=== PATIENT | female | born 1960 | race Caucasian/White ===

== ENCOUNTER 2023-04-01 08:43 | Outpatient (OUT) | payer BC, SELFPAY ==
--- NOTE | 2023-04-01 08:47 | MM_ITS ---
Patient: ALICIA STEWART Exam Date: 04/01/2023 : 1960 Gender:F Ordering : DR Robert Cortez . Admission #: [id number] Family : DR Johnnie Brewer . Order #: [id number] CLICK HERE TO VIEW EXAM RADIOLOGY REPORT PROCEDURE: MM TOMOSYNTHESIS SCREENING BI COMPARISON: MG MAMM SCREEN 3D ILDA CAD, 01/19/2021MG MAMM SCREEN 3D ILDA CAD, 02/01/2022. INDICATIONS: Screening Calculator Name NCI Breast Cancer Risk Assessment Tool 5 Year Breast Cancer Risk 1.30% Lifetime Breast Cancer Risk 5.70% Personal Breast Cancer No Personal Ovarian Cancer No Treatments None Family Cancers None LOCATION: [facility] BREAST COMPOSITION: Heterogeneously dense,which may obscure small masses. FINDINGS: DIAGNOSTIC CATEGORY 1--NEGATIVE. NO CHANGE FROM COMPARISON ASSESSMENT. Scattered benign-appearing calcifications are present. Scattered benign-appearing lymph nodes are present. RIGHT BREAST: No significant suspicious finding. LEFT BREAST: No significant suspicious finding. Stable micro clip marker upper outer quadrant, anterior breast RECOMMENDATIONS: ROUTINE MAMMOGRAM AND CLINICAL EVALUATION IN 12 MONTHS. PLEASE NOTE: A NORMAL MAMMOGRAM DOES NOT EXCLUDE THE POSSIBILITY OF BREAST CANCER. A CLINICALLY SUSPICIOUS PALPABLE LUMP SHOULD BE BIOPSIED. Dictated by: Drew Mead MD on 04/01/2023 at 09:49 Approved by: Drew Mead MD on 04/01/2023 at 09:51
== END 2023-04-01 08:44 | disposition home or self-care (01) ==
LOC: MAMMO 08:43
PROVIDERS: PCP Family Medicine; Visit Provider Obstetrics & Gynecology
DX: Z12.31 Encounter for screening mammogram for malignant neoplasm of breast (principal)
CPT/HCPCS: 77063; 77067

== ENCOUNTER 2023-04-19 20:29 | Outpatient (REF) | payer BC, SELFPAY ==
[2023-04-23 12:08] LABS: Age Gdln ACOG Testing Note (.); HPV Aptima Negative (Negative); IGP, Aptima HPV, rfx 16/18,45 Note (.)
== END 2023-04-19 20:30 | disposition home or self-care (01) ==
LOC: LAB 20:29
PROVIDERS: PCP Family Medicine; Visit Provider Obstetrics & Gynecology
DX: Z12.4 Encounter for screening for malignant neoplasm of cervix (principal)
CPT/HCPCS: G0145

== ENCOUNTER 2024-04-23 21:27 | Outpatient (REF) | payer BC, SELFPAY | END 2024-04-23 21:28 | disposition home or self-care (01) | LOC: LAB 21:27 | PROVIDERS: PCP Family Medicine; Visit Provider Obstetrics & Gynecology | DX: Z01.419 Encounter for gynecological examination (general) (routine) without abnormal findings (principal) | CPT/HCPCS: 87624; 88175 ==

== ENCOUNTER 2024-04-30 08:17 | Outpatient (OUT) | payer BC, SELFPAY ==
--- NOTE | 2024-04-30 | XR_ITS ---
[address] [address] Patient Name: ALICIA STEWART MRN: [id number] date: 1960 Sex: F Assigned Patient Location: [facility] Current Patient Location: Accession/Order Number: [id number] Exam Date: 04/30/2024 08:40 Report Date: 05/01/2024 07:32 At the request of: DOMENICO SARAVIA Procedure: XR DEXA axial skeleton EXAMINATION: XR DEXA axial skeleton HISTORY: POSTMENOPAUSAL STATE Z78.0 COMPARISON: DEXA bone densitometry 01/19/2021 TECHNIQUE: Dual-energy X-ray absorptiometry (DXA) was performed. FINDINGS: SPINE ANALYSIS: Average bone mineral density is 1.221 g/cm2. T-score (standard deviation relative to young adult mean): 0.3 . +6.1% change since prior study. HIP ANALYSIS: Lowest bone mineral density is within the right femoral neck, 0.809 g/cm2. T-score (standard deviation relative to young adult mean): -1.6 . -4.7% change since prior study. XR/XR DEXA axial skeleton IMPRESSION: World Health Organization Classification: Osteopenia - Moderate Fracture Risk FRAX: Cannot calculate. Pharmacologic treatment recommendations * No uniform recommendation applies to all patients. Management plans must be individualized. * Consider initiating pharmacologic treatment in postmenopausal women and men >= 50 years of age who have the following: Primary fracture prevention: * T-score <= - 2.5 at the femoral neck, total hip, lumbar spine, 33% radius (some uncertainty with existing data) by DXA. * Low bone mass (osteopenia: T-score between - 1.0 and - 2.5) at the femoral neck or total hip by DXA with a 10-year hip fracture risk >= 3% or a 10-year major osteoporosis-related fracture risk >= 20% (i.e., clinical vertebral, hip, forearm, or proximal humerus) based on the [place]-adapted FRAXregistered model. Secondary fracture prevention: * Fracture of the hip or vertebra regardless of BMD [4, 5]. * Fracture of proximal humerus, pelvis, or distal forearm in persons with low bone mass (osteopenia: T-score between - 1.0 and - 2.5). The decision to treat should be individualized in persons with a fracture of the proximal humerus, pelvis, or distal forearm who do not have osteopenia or low BMD [12, 13]. Theresa MS, Ariel SL, Rajinder KL, Mathew EM, Thanh KG, AJ, Naif ES. The clinician's guide to prevention and treatment of osteoporosis. Osteoporos Int. 2021;33(10):1598-6507. doi: 10.1007/n52684-209-63740-c. Epub 2021Dec 03. Erratum in: Osteoporos Int. 2021Mar 04;: PMID: [id number]; PMCID: [id number]. Electronically authenticated by: IVONNE PENALOZA Date: 05/01/2024 07:32
--- NOTE | 2024-04-30 | MM_ITS ---
Patient Name: ALICIA STEWART MR#: [id number] : 1960 Exam Date: 04/30/2024 Ordering Doctor: DR Robert Cortez . RADIOLOGY REPORT PROCEDURE: MM TOMOSYNTHESIS SCREENING BI COMPARISON: MM TOMOSYNTHESIS SCREENING BI, 04/01/2023. MG MAMM SCREEN 3D ILDA CAD, 02/01/2022. INDICATIONS: SCREENING FOR MALIGNANT NEOPLASM OF BREASTS Calculator Name NCI Breast Cancer Risk Assessment Tool 5 Year Breast Cancer Risk 1.40% Lifetime Breast Cancer Risk 5.60% Personal Breast Cancer No Personal Ovarian Cancer No Treatments None Family Cancers None LOCATION: The BREAST COMPOSITION: The breasts are heterogeneously dense,which may obscure small masses. FINDINGS: DIAGNOSTIC CATEGORY 2--BENIGN FINDING. NO CHANGE FROM COMPARISON. Scattered benign-appearing calcifications are present. Scattered benign-appearing lymph nodes are present. RIGHT BREAST: No significant suspicious finding. LEFT BREAST: No significant suspicious finding. Stable micro clip marker upper outer quadrant, anterior breast. RECOMMENDATIONS: ROUTINE MAMMOGRAM AND CLINICAL EVALUATION IN 12 MONTHS. PLEASE NOTE: A NORMAL MAMMOGRAM DOES NOT EXCLUDE THE POSSIBILITY OF BREAST CANCER. A CLINICALLY SUSPICIOUS PALPABLE LUMP SHOULD BE BIOPSIED. Dictated by: Drew Mead MD on 04/30/2024 at 12:40 Approved by: Drew Mead MD on 04/30/2024 at 12:41
== END 2024-04-30 08:18 | disposition home or self-care (01) ==
LOC: RAD 08:18
PROVIDERS: PCP Family Medicine; Visit Provider Obstetrics & Gynecology
DX: Z12.31 Encounter for screening mammogram for malignant neoplasm of breast (principal); Z78.0 Asymptomatic menopausal state; M85.80 Other specified disorders of bone density and structure, unspecified site
CPT/HCPCS: 77063; 77067; 77080

== ENCOUNTER 2025-03-28 12:18 | Outpatient (REF) | payer BC, SELFPAY ==
--- OUTSIDE RECORDS SUMMARY | 2025-04-05 12:25 | XMS_ITS | CCD ---
Author Organization [facility] Care Team Providers Care Machine Adjuster Leader Name Role Phone CHRISTOPHER, DR HADLEY Attending Unavailable COURTNEYK, DR HADLEY Consulting Unavailable PATRIZIA, DR SARBJIT Patrick Primary Care Unavailable KARASIK, DR HADLEY Admitting Unavailable JHASIK, DR HADLEY Admitting Unavailable JHASIK, DR HADLEY Attending Unavailable COURTNEYK, DR HADLEY Consulting Unavailable PATRIZIA, DR SARBJIT Patrick Primary Care Unavailable WEST, DR FLAKITA Conroy Consulting Unavailable Johnnie Browne MD Primary Care Provider Johnnie Browne MD Unavailable Johnnie Browne MD Attending Provider ZAID WEBER Attending Unavailable ZAID WEBER Referring Unavailable JOHNNIE BROWNE Attending Unavailable JOHNNIE BROWNE Attending Unavailable DOMENICO CORTEZ Attending Unavailable Johnnie Browne Attending Unavailable Johnnie Browne Admitting Unavailable Allergies Allergy Classification Reported Allergen(s) Allergy Type Date of Onset Reaction(s) Facility (1 source) Morphine Drug Allergy 06-01-2015 [facility] Repository (11 sources) Morphine Drug Allergy 04-18-2023 [facility] Healthcare Work Phone: (11 sources) Sulfonamides (Antibiotic) Drug Allergy 04-18-2023 Rash [facility] Medications Current Medications Medication Drug Class(es) Dates Sig (Normalized) Sig (Original) atorvastatin 10 mg oral tablet (10 sources) HMG-CoA Reductase Inhibitor Start: 07-27-2024 take 1 tablet by mouth once daily atorvastatin (Lipitor) 10 MG tablet Indications: Hyperlipidemia, unspecified Take 1 tablet (10 mg) by mouth Daily 90 tablet 3 07/27/2024 Active Start: 04-16-2024 End: 04-23-2024 take 1 tablet by mouth once daily at dinner atorvastatin (Lipitor) 10 MG tablet Indications: Hyperlipidemia, unspecified (CMS/HCC) TAKE 1 TABLET BY MOUTH EVERY DAY DINNER 90 tablet 3 04/16/2024 04/23/2024 Discontinued bisoprolol fumarate 10 mg / hydroCHLOROthiazide 6.25 mg oral tablet (11 sources) Thiazide Diuretic, beta-Adrenergic Bj Start: 12-03-2024 take 1 tablet by mouth once daily bisoprolol-hydroCHLOROthiazide (Ziac) 10-6.25 MG tablet Indications: Essential (primary) hypertension , Benign essential hypertension TAKE 1 TABLET BY MOUTH EVERY DAY 90 tablet 3 12/03/2024 Active Start: 12-08-2023 take 1 tablet by roselyn th once daily bisoprolol-hydroCHLOROthiazide (Ziac) 10 -6.25 MG tablet Indications: Essential (primary) hypertension (CMS/HCC) , Benign essential hypertension (CMS/HCC) TAKE 1 TABLET BY MOUTH EVERY DAY 90 tablet 3 12/08/2023 Active Cholecalciferol (7 sources) Vitamin D Cholecalciferol (EQL VITAMIN D3 GUMMIES PO) Take by mouth Active levothyroxine sodium 0.125 mg oral tablet (13 sources) l-Thyroxine Start: take 1 tablet by mouth once daily levothyroxine (Synthroid, Levoxyl) 125 MCG tablet Indications: Adult hypothyroidism Take 1 tablet (125 mcg) by mouth Daily 90 tablet 3 12/14/2024 Active Start: 08-05-2023 End: 07-09-2025 take 1 tablet by mouth in the morning levothyroxine (Synthroid, Levoxyl) 100 MCG tablet Indications: Adult hypothyroidism (CMS/HCC) TAKE 1 TABLET (100 MCG) BY MOUTH IN THE MORNING 90 tablet 3 07/09/2024 12/14/2024 Discontinued (Reorder) Misc Natural Products (BEET ROOT PO) (10 sources) take 1 tablet by roselyn th once daily Misc Natural Products (BEET ROOT PO) Take 1 tablet by mouth Daily Active Multiple Vitamin (multivitamin) tablet (10 sources) take 1 tablet by roselyn th once daily Multiple Vitamin (multivitamin) tablet Take 1 tablet by mouth Daily Active Turmeric extract (10 sources) take 1 tablet by roselyn th once daily Turmeric 5-1000 MG capsule Take 1 tablet by mouth Daily Active Completed/Discontinued Medications Medication Drug Class(es) Dates Sig (Normalized) Sig (Original) Calcium Carbonate-Vit D-Min (CALCIUM 1200 PO) (6 sources) End: 12-14-2024 Calcium Carbonate-Vit D-Min (CALCIUM 1200 PO) Take 1,200 mg by mouth Daily 12/14/2024 Discontinued Calcium Carbonat e-Vit D-Min (CALCIUM 1200 PO) Take 1,200 mg by mouth Daily Active metFORMIN hydrochloride 500 mg oral tablet (3 sources) Biguanide End: 04-23-2024 take 1 tablet by mouth once daily metFORMIN (Glucophage) 500 MG tablet Take 500 mg by mouth 1 (one) time each day at the same time 04/23/2024 Discontinued vitamin b12 0.1 mg oral tablet (3 sources) Vitamin B12 End: 12-14-2024 take 1 tablet by mouth once daily cyanocobalamin (Vitamin B-12) 100 MCG tablet Take 100 mcg by mouth Daily 12/14/2024 Discontinued Problems Active Problems Problem Classification Problem Date Documented Date Episodic/Chronic Essential hypertension (10 sources) Essential hypertension; Translations: [Essential (primary) hypertension] Onset: 10-22-2024 10-22-2024 Chronic Immunizations and screening for infectious disease (1 source) Encounter for screening for human papillomavirus (HPV); Translations: [ENC SCREENING HUMAN PAPILLOMAVIRUS] Onset: 01-26-2022 Episodic Osteoarthritis (6 sources) Primary gonarthrosis, bilateral; Translations: [Bilateral primary osteoarthritis of knee] Onset: 12-14-2024 12-14-2024 Chronic Other nutritional; endocrine; and metabolic disorders (8 sources) Severe obesity; Translations: [Class 2 severe obesity due to excess calories with serious comorbidity and body mass index (BMI) of 37.0 to 37.9 in adult ([facility])] Onset: 12-14-2024 12-14-2024 Chronic Other screening for suspected conditions (not mental disorders or infectious disease) (10 sources) Encounter for screening mammogram for malignant neoplasm of breast; Translations: [Encounter for screening for malignant neoplasm of cervix] Onset: 01-25-2022 Episodic Residual codes; unclassified (2 sources) Postmenopausal state; Translations: [Asymptomatic menopausal state] 04-23-2024 Episodic Thyroid disorders (9 sources) Hypothyroidism; Translations: [Hypothyroidism, unspecified] Onset: 10-22-2024 10-22-2024 Chronic Past or Other Problems Problem Classification Problem Date Documented Da sole Episodic/Chronic Diabetes mellitus without complication (6 sources) Prediabetes; Translations: [Prediabetes] Onset: 12-14-2024 12-14-2024 Episodic Neoplasms of unspecified nature or uncertain behavior (9 sources) Neoplasm of uncertain behavior of skin; Translations: [Neoplasm of uncertain behavior of skin] Onset: 12-14-2024 12-14-2024 Episodic Other bone disease and musculoskeletal deformities (7 sources) Osteopenia; Translations: [Other specified disorders of bone density and structure, left thigh] Onset: 05-02-2024 05-02-2024 Episodic Results Test Name Value Interpretation Reference Range Facil reynaldo Tho 03-29-2025 L --- Specimen: [id number] Received: 03/29/25 Status: HASMUKH Kevin Num: [id number] Spec Type: Surgical Subm Dr: Johnnie rBowne MD Tissues: A Skin-Other than Cyst, tag, debridement or plastic repair (RIGHT MID BACK) Procedures: HEAVEN Gross/Tianna L4 Age/ Patient Sex Location Account Attending Physician Diane Stewart 64/F [place] [id number] Johnnie Browne MD SPEC NUM: [id number] RECD: 03/29/25 STATUS: DAYANARAAudrey COOK NUM: [id number] RL: 03/29/25- DR: Johnnie Browne MD ENTERED: 03/29/25 [facility] DR: SPEC TYPE: Surgical DEPT: [place] ENTERED BY: [id number] RECV BY: [id number] ORDERED: HE, Gross/Micro L4 ORDERED: HE, Gross/Micro L4 Pathological Diagnosis Skin lesion, right mid back, shave biopsy: - Hyperkeratotic seborrheic keratosis. Clinical Information Mole Gross Description Received in formalin labeled with the patients name and date of and right mid back mole is a montgomery-purple, finely nodular, 0.7 cm in greatest dimension polypoid-like portion of skin. The specimen is inked black at the apparent point of attachment, trisected, and entirely submitted in a single cassette. (1, ns, [id number] A) Main container is received without a source site; therefore, the office is called. A message is left on 03/29/2025 at 1327 to please call us back and verify the specimen source site- Microscopic Description Microscopic examination is performed. Specimen: [id number] Received: 03/29/25 Status: HASMUKH Brown Num: [id number] Spec Type: Surgical Subm Dr: Johnnie Browne MD Tissues: A Skin-Other than Cyst, tag, debridement or plastic repair (RIGHT MID BACK) Procedures: Johnathon COLLADO Patient: Diane Stewart [id number] (Continued) Specimen: [id number] Received: 03/29/25 (Continued) Signed (signature on file) Christ Jean Baptiste MD 04/01/251431 Specimen: [id number] Received: 03/29/25 Status: HASMUKH Brown Num: [id number] Spec Type: Surgical Subm Dr: Johnnie Browne MD Tissues: A Skin-Other than Cyst, tag, debridement or plastic repair (RIGHT MID BACK) Procedures: Johnathon COLLADO Patient: Diane Stewart [id number] (Continued) Specimen: [id number] Received: 03/29/25 (Continued) CPT Codes 88309 Specimen: [id number] Received: 03/29/25 Status: HASMUKH Brown Num: [id number] Spec Type: Surgical Subm Dr: Johnnie Browne MD Tissues: A Skin-Other than Cyst, tag, debridement or plastic repair (RIGHT MID BACK) Procedures: Niki COLLADO/Tianna L4 Patient: Diane Stewart [id number] (Continued) Signed (signature on file) Christ Jean Baptiste MD 04/01/25 1432 Normal [facility] IGP,APTIMA HPV,AGE GDLNon AGE GDLN ACOG TESTING Note . [facility] Comment on above: TESTS RESULT FLAG UNITS REF RANGE LAB Clinician Provided Cytology Information Source.............Vagina No. of containers..01 ThinPrep Vial Age Algo ACOG Susan... 30-65 01 FLAG LEGEND: L-Low Normal,H-High Normal,LL-Alert Low,HH-Alert High <-Panic Low,>-Panic High,A-Abnormal,AA-Critical Abnormal Performed at: 01 =G [facility] [address] [place] [address] Mari Cunningham MD, HPV APTIMA Negative Negative [facility] e Comment on above: This nucleic acid amplification test det ects fourteen high- risk HPV types (16,18,31,33,35,39,45,51,52,56,58,59,66,68) without differentiation. Performed at: =G - [facility] [place], [place] [id number] Director Of Procurement: Mari Cunningham MD, Phone: [phone] Performed at: [facility] [address] [place], [place] [id number] Director Of Procurement: Abiel Boyer MD, Phone: [phone] IGP, APTIMA HPV, RFX 16/18,45 Note . [facility] Comment on above: TESTS RESULT FLAG UNITS REF RANGE LAB DIAGNOSIS: 02 NEGATIVE FOR INTRAEPITHELIAL LESION OR MALIGNANCY. THIS SPECIMEN WAS RESCREENED PART OF OUR JUNIOR SOFTWARE ENGINEER PROGRAM. Specimen adequacy: 02 Satisfactory for evaluation. No endocervical cells are present. This is consistent with a history of hysterectomy. Performed by: 02 Diane Lopez, Data Warehousing Engineer (ASC) QC reviewed by: 02 Ata Grimes, Data Warehousing Engineer (ASCP) . 02 Note: Note 03 The Pap smear is a screening test designed to aid in the detection of premalignant and malignant conditions of the uterine cervix. It is not a diagnostic procedure and should not be used as the sole means of detecting cervical cancer. Both false-positive and false-negative reports do occur. Test Methodology: Note 03 This liquid based ThinPrep(R) pap test was screened with the use of an image guided system. HPV Genotype Reflex Note 02 Criteria not met, HPV Genotype not performed. FLAG LEGEND: L-Low Normal,H-High Normal,LL-Alert Low,HH-Alert High <-Panic Low,>-Panic High,A-Abnormal,AA-Critical Abnormal Performed at: 02 [facility] [address] [place] [address] Abiel Boyer MD, 03 WB [facility] [address] [address] Mari Cunningham MD, SP[facility]ULA-[facility] CLINKingnaru EntertainmentIL [facility] Reportson 12-08-2022 Lab Reports [id number] D:127 Normal [facility] MG MAMM SCREEN 3D ILDA CADon 02-01-2022 MG MAMM SCREEN 3D ILDA CAD Patient: DIANE STEWART Exam Date: 02/01/2022 : 1960 Gender:F Ordering : DR JOMAR WHITE . Admission #: [id number] Family : DR SARBJIT ACHARYA . Order #: [id number] CLICK HERE TO VIEW EXAM RADIOLOGY REPORT PROCEDURE: MAMMOGRAM SCREENING 3D BILATERAL CAD COMPARISON: MG MAMM SCREEN ILDA W CAD, 01/08/2020. MG MAMM SCREEN 3D ILDA CAD, 01/19/2021. INDICATIONS: Screening mammography Calculator Name NCI Breast Cancer Risk Assessment Tool 5 Year Breast Cancer Risk 1.30% Lifetime Breast Cancer Risk 5.90% Personal Breast Cancer No Personal Ovarian Cancer No Treatments None Family Cancers None LOCATION: [facility] BREAST COMPOSITION: Heterogeneously dense,which may obscure small masses. FINDINGS: DIAGNOSTIC CATEGORY 2--BENIGN FINDING. NO CHANGE FROM COMPARISON. Scattered benign-appearing calcifications are present. Scattered benign-appearing lymph nodes are present. RIGHT BREAST: No significant suspicious finding. LEFT BREAST: No significant suspicious finding. RECOMMENDATIONS: ROUTINE MAMMOGRAM AND CLINICAL EVALUATION IN 12 MONTHS. PLEASE NOTE: A NORMAL MAMMOGRAM DOES NOT EXCLUDE THE POSSIBILITY OF BREAST CANCER. A CLINICALLY SUSPICIOUS PALPABLE LUMP SHOULD BE BIOPSIED. Dictated by: Flakita Mead MD on 02/01/2022 at 10:11 Approved by: Flakita Mead MD on 02/01/2022 at 10:[address] [facility] PAP ACOG PANEL 2: 30 to 65on 01-28-2022 . . Normal [facility] Comment on above: Result Comment: Performed at: WB Performed By: #### [id number] #### [facility] [address] [place] [address] Dr. Kim Pérez Age Gdln ACOG Testing 30-65 Normal [facility] Comment on above: Performed By: #### [id number] #### [facility] [address] [place] [address] Dr. Kim Pérez DIAGNOSIS: Comment Normal [facility] Comment on above: Result Comment: NEGATIVE FOR INTRAEPITHE LIAL LESION OR MALIGNANCY. Performed at: WB Performed By: #### [id number] #### [facility] [address] [place] [address] Dr. Kim Pérez HPV Aptima Negative Normal Negative [facility] Comment on above: Result Comment: This nucleic acid amplif ication test detects fourteen high-risk HPV types (16,18,31,33,35,39,45,51,52,56,58,59,66,68) without differentiation. Performed at: =G Performed By: #### [id number] #### [facility] [address] [place] [address] Dr. Kim Pérez Methodology: Comment Normal [facility] Comment on above: Result Comment: This liquid based ThinPr ep(R) pap test was screened with the use of an image guided system. Performed at: WB Performed By: #### [id number] #### [facility] [address] [place] [address] Dr. Kim Pérez Note: Comment Normal [facility] Comment on above: Result Comment: The Pap smear is a scree sandra test designed to aid in the detection of premalignant and malignant conditions of the uterine cervix. It is not a diagnostic procedure and should not be used as the sole means of detecting cervical cancer. Both false-positive and false-negative reports do occur. . Performed at: WB Performed By: #### [id number] #### [facility] [address] [place] [address] Dr. Kim Pérez Performed by: Comment Normal [facility] Comment on above: Result Comment: Ed Kelly, Cytotechnol ogist (ASCP) Performed at: WB Performed By: #### [id number] #### [facility] [address] [place] [address] Dr. Kim Pérez Specimen adequacy: Comment Normal [facility] Comment on above: Result Comment: Satisfactory for evaluat ion. No endocervical cells are present. This is consistent with a history of hysterectomy. Performed at: WB Performed By: #### [id number] #### [facility] [address] [place] [address] Dr. Kim Pérez Vital Signs Date Time Vital Sign Value Performing Clinician Donovani lity 03-28-2025 13:13040 Body height 162.6 cm Johnnie Browne MD Work Phone: [facility] 03-28-2025 13:13-0400 Body mass index (BMI) [Ratio] 37.25 kg/m2 Johnnie Browne MD Work Phone: [facility] 03-28-2025 13:13-0400 Body temperature 96.6 [degF] Johnnie Browne MD Work Phone: [facility] 03-28-2025 13:13-040 Body weight 98.43 kg Johnnie Browne MD Work Phone: [facility] 03-28-2025 13:13-0400 Diastolic blood pressure 64 mm[Hg] Johnnie Browne MD Work Phone: [facility] 03-28-2025 13:13-0400 Heart rate 71 /min Johnnie Browne MD Work Phone: [facility] 03-28-2025 13:13-0400 Respiratory rate 20 /min Johnnie Browne MD Work Phone: [facility] 03-28-2025 13:13-0400 SaO2% (BldA) [Mass fraction] 94 % Johnnie Browne MD Work Phone: [facility] 03-28-2025 13:13-0400 Systolic blood pressure 150 mm[Hg] Johnnie Browne MD Work Phone: [facility] 12-14-2024 11:29-0400 Body height 162.6 cm Johnnie Browne MD Work Phone: [facility] 12-14-2024 11:29-0400 Body mass index (BMI) [Ratio] 37.76 kg/m2 Johnnie Browne MD Work Phone: [facility] 12-14-2024 11:29-0400 Body temperature 97.11 [degF] Johnnie Browne MD Work Phone: [facility] 12-14-2024 11:29-0400 Body weight 99.79 kg Johnnie Browne MD Work Phone: [facility] 12-14-2024 11:29-0400 Diastolic blood pressure 86 mm[Hg] Johnnie Browne MD Work Phone: [facility] 12-14-2024 11:29-0400 Heart rate 69 /min Johnnie Browne MD Work Phone: [facility] 12-14-2024 11:29-0400 Respiratory rate 20 /min Johnnie Browne MD Work Phone: [facility] 12-14-2024 11:29-0400 SaO2% (BldA) [Mass fraction] 96 % Johnnie Browne MD Work Phone: [facility] 12-14-2024 11:29-0400 Systolic blood pressure 154 mm[Hg] Johnnie Browne MD Work Phone: [facility] 04-23-2024 15:24-0400 Body weight 98.03 kg Domenico Cortez DO Work Phone: [facility] 09-16-2024 15:24-0400 Diastolic blood pressure 70 mm[Hg] Domenico Diego DO Work Phone: [facility] 04-23-2024 15:24-0400 Systolic blood pressure 120 mm[Hg] Domenico Diego DO Work Phone: [facility] Encounters Encounter Date Encounter Type Care Provider Facility Start: 04-01-2025 End: 04-01-2025 Telephone encounter Johnnie Browne MD Work Phone: [facility] Start: 03-28-2025 End: 03-28-2025 Bamboo flowsheet Johnnie Browne MD Work Phone: [facility] Start: 03-28-2025 End: 03-28-2025 Bamboo flowsheet Johnnie Browne MD Work Phone: [facility] Start: 03-28-2025 End: 03-28-2025 Departed Referred Johnnie Browne MD -LAB Path [facility] Start: 03-28-2025 End: 03-28-2025 Office outpatient visit 15 minutes Johnnie Browne MD Work Phone: [facility] Comment on above: Preop examination (P rimary Dx); Essential hypertension ; Neoplasm of uncertain behavior of skin Start: 03-28-2025 End: 03-28-2025 Preprocedural examination done Johnnie Browne MD Work Phone: [facility] Work Phone: Start: 03-28-2025 End: 03-28-2025 ambulatory JOHNNIE BROWNE [facility] Work Phone: Start: 02-26-2025 End: 03-01-2025 Telephone encounter Zaid Weber DPM Work Phone: [facility] Comment on above: Advice Only (Clearan ce ) Start: 12-14-2024 End: 12-14-2024 Bamboo flowsheet Johnnie Browne MD Work Phone: [facility] Start: 12-14-2024 End: 12-14-2024 Bamboo flowsheet [facility] Start: 12-14-2024 End: 12-14-2024 Patient encounter procedure Johnnie Browne MD Work Phone: [facility] Work Phone: Start: 12-14-2024 End: 12-14-2024 Periodic preventive med est patient 65yrs& older Johnnie Browne MD Work Phone: [facility] Comment on above: Annual physical exam (Primary Dx); Essential hypertension (CMS/HCC); Adult hypothyroidism (CMS/HCC); Neoplasm of uncertain behavior of skin; Class 2 severe obesity due to excess calories with serious comorbidity and body mass index (BMI) of 37.0 to 37.9 in adult (CMS/HCC) Start: 12-14-2024 End: 12-14-2024 ambulatory JOHNNIE BROWNE Not Available Start: 10-22-2024 Patient encounter procedure Johnnie Browne MD Work Phone: [facility] Start: 10-22-2024 End: 10-22-2024 ambulatory ZAID WEBER Not Available Start: 04-23-2024 End: 04-23-2024 Patient encounter procedure Domenico Diego DO Work Phone: [facility] Work Phone: Start: 04-23-2024 End: 04-23-2024 Periodic preventive med est patient 40-64yrs Domenico Diego DO Work Phone: [facility] Comment on above: Well woman exam with routine gynecological exam; Breast cancer screening by mammogram; Postmenopausal state Start: 04-23-2024 End: 04-23-2024 ambulatory DOMENICO DIEGO Not Available Start: 04-23-2024 End: 04-23-2024 Bamboo flowsheet Domenico Diego DO Work Phone: [facility] Start: 04-23-2024 End: 04-30-2024 Bamboo flowsheet Domenico Diego DO Work Phone: [facility] Start: 04-23-2024 End: 04-30-2024 [facility] Result Encounter Domenico Diego DO Work Phone: [facility] Unsolicited Start: 12-03-2022 ambulatory Facility:[facility] Start: 02-01-2022 End: 02-02-[address] JOMAR WHITE Facility:[facility] Start: 01-25-2022 End: 01-25-[address] JOMAR WHITE Facility:[facility] Procedures Date Procedure Procedure Detail Performing Clinician Start: 04-30-2024 Mammography Domenico Fazi o DO Work Phone: Start: 04-23-2024 IGP,APTIMA HPV,AGE GDLN Domenico Diego DO Work Phone: Start: 08-11-2016 Colonoscopy Johnnie almonte MD Work Phone: Plan of Treatment Date Care Activity Detail Author Start: 08-11-2026 Screening for malign ant neoplasm of colon [facility] Start: 09-30-2025 End: 09-30-2025 Patient encounter procedure 09/30/2025 2:30 PM EST Office Visit [facility] [address] [place] [id number] Johnnie Browne MD [address] [place] [address] [facility] Start: 06-12-2025 End: 06-12-2025 Patient encounter procedure 06/12/2025 10:00 AM EST Procedure Visit [facility] [address] [place] [address] Bailey Patel PA [address] [place] [address] [facility] Start: 05-22-2025 End: 05-22-2025 Patient encounter procedure [facility] Start: 05-08-2025 End: 05-08-2025 Patient encounter procedure [facility] Start: 05-01-2025 End: 05-01-2025 Patient encounter procedure [facility] Start: 04-30-2025 Screening for malign ant neoplasm of breast Mammogram [facility] Start: 04-16-2025 End: 04-16-2025 Patient encounter procedure [facility] Start: 04-08-2025 Influenza vaccination [facility] Start: 03-28-2025 End: 03-28-2025 Patient encounter procedure [facility] Comment on above: Arrived Start: 12-14-2024 End: 12-14-2024 Patient encounter procedure 12/14/2024 11:30 AM EDT Office Visit [facility] [address] [place] [address] Johnnie Browne MD [address] [place] [address] Arrived [facility] Comment on above: Arrived Start: 04-23-2024 End: 04-23-2024 Patient encounter procedure 04/23/2024 3:00 PM EDT Office Visit [facility] [address] [place] [address] Domenico Cortez, [address] [place], [place] [id number] Arrived [facility] Comment on above: Arrived Start: 04-23-2024 End: 04-23-2025 DXA Skeletal system Views for bone density DEXA bone density Imaging Routine Postmenopausal state Expected: 04/23/2024 (Approximate), Expires: 04/23/2025 [facility] Comment on above: Expected: 04/23/2024 (Approximate), Expires: 04/23/2025 Start: 04-23-2024 End: 06-23-2025 MG Breast - bilateral Screening Bilateral screening mammogram Imaging Routine Breast cancer screening by mammogram Expected: 04/23/2024, Expires: 06/23/2025 [facility] Work Phone: Comment on above: Expected: 04/23/2024 , Expires: 06/23/2025 Start: 04-08-2024 Influenza vaccination Influenza Vacc ine (#1) [facility] Start: 11-11-2009 Pneumococcal Vaccine : 65+ Years (1 of 1 - PCV) Pneumococcal Vaccine: 65+ Years (1 of 1 - PCV) [facility] Start: 1999 Screening for malign ant neoplasm of breast Mammogram [facility] Start: 11-11-1989 Screening for malign ant neoplasm of cervix [facility] Start: 11-11-1980 Screening for malign ant neoplasm of cervix Pap Smear [facility] Start: 1960 Screening for malign ant neoplasm of colon [facility] THIN PREP TIS PAP AN D HR HPV DNA THIN PREP TIS PAP AND HR HPV DNA Pathology and Cytology Routine Well woman exam with routine gynecological exam Ordered: 04/23/2024 [facility] Comment on above: Ordered: 04/23/2024 Immunizations Immunization Date Immunization Notes Care Provider Festus esparza 05-08-2015 influenza virus vacc ine, unspecified formulation Domenico Cortez DO Work Phone: [facility] Payers Date Payer Category Payer Self-pay 2021 [facility] BCBS [id number] 2021 Unknown BCBS BCBS xxxxxx [id number] 2021-Present [phone] [address] [place] [id number] 1959 Unknown [id number] [id number] 1959 Unknown [id number]. [id number] 1959 Unknown [id number]. 2.1259 1959 Unknown [id number]. 2.1259 1959 Unknown [id number] [id number]. 2.1259 1959 Unknown [id number]. 2.1259 1959 Unknown [id number] 2.1259 1959 Unknown [id number] Social History Date Type Detail Facility Start: 04-07-2023 Tobacco smoking stat [facility] Never smoked tobacco [facility] Start: 04-07-2023 Tobacco use and exposure Smokeless tobacco non-user [facility] Start: 04-23-2024 End: 03-28-2025 Alcoholic beverage intake Ex-drinker (finding) [facility] Start: 04-23-2024 End: 03-28-2025 History of Social function [facility] Start: 04-23-2024 End: 03-28-2025 Tobacco use panel [facility] Start: 04-07-2023 Alcohol Comment Occasional alcohol u se [facility] Start: 1960 Sex assigned at Not on file [facility] Tobacco smoking stat [facility] Unknown if ever smoked [facility] Work Phone: Sex Female (finding) [facility] Start: 1960 Sex Assigned At Female [facility] Clinical Notes 04-23-2024 to 04-01-2025 Telephone Encounter - Johnnie Browne MD - 04/01/2025 3:25 PM EDTTelephone Encounter - Johnnie Browne MD - 04/01/2025 3:25 PM EDTMcasimiro Browne MD - 03/28/2025 1:52 PM EDT Note Date & Type Note Facility 04-01-2025 Telephone encount er Note Pathology showed benign seborrheic keratosis. [facility] 04-01-2025 Miscellaneous Notes Formattin g of this note might be different from the original. Pathology showed benign seborrheic keratosis. documented in this encounter [facility] 03-28-2025 History of Presen t illness Narrative Associated Problem(s): Neoplasm of uncertain behavior of skin C/o irritated mole and wants removed. Decided to perform shave biopsy. Verbal consent obtained and warned of possible bleeding, infection or need for further surgery. Cleansed with alcohol and used 0.5 milliliters of 2% lidocaine with epinephrine to raise wheel. Cleansed with betadine and used 15 blade scalpel to remove lesion. Specimen sent for pathology. Silver nitrate used for hemostasis. Patient tolerated well. Covered with bacitracin and bandage. Will notify of pathology when available Associated Problem(s): Essential hypertension BP elevated today but typically controlled and monitor PRN. Associated Problem(s): Preop examination Able to proceed with upcoming surgery at low risk for complications. History of HTN but typically controlled with medication. No history of DM or CAD. Not having chest pain or SOB. Recommend routine PAT. Images from the original note were not included. Subjective Patient ID: Diane Stewart is a 64 y.o. female who presents for Follow-up (Shave biopsy, /Surgical clearance). Presents for surgical clearance and shave biopsy. Painful bunion on right foot for years. Tried changing shoes and using OTC but not helping. Prior left repair several years ago and did well. Scheduled 04/25. Overall feels well. History of HTN and typically controlled with medication. No DM or CAD. Not having chest pain or palpitations. Needs shave biopsy, see last note for details. Mole on right mid back for months. Increased in size and dark color. Irritated by bra and wants removed. Review of Systems Respiratory: Negative for cough, shortness of breath and wheezing. Cardiovascular: Negative for chest pain and palpitations. Gastrointestinal: Negative for abdominal pain, diarrhea, nausea and vomiting. Genitourinary: Negative for dysuria. Objective Physical Exam Constitutional: General: She is not in acute distress. Appearance: Normal appearance. HENT: Head: Normocephalic. Right Ear: Tympanic membrane normal. Left Ear: Tympanic membrane normal. Eyes: Extraocular Movements: Extraocular movements intact. Pupils: Pupils are equal, round, and reactive to light. Cardiovascular: Rate and Rhythm: Normal rate and regular rhythm. Heart sounds: No murmur heard. No friction rub. No gallop. Pulmonary: Effort: Pulmonary effort is normal. Breath sounds: Normal breath sounds. No wheezing, rhonchi or rales. Abdominal: General: Bowel sounds are normal. There is no distension. Palpations: Abdomen is soft. Tenderness: There is no abdominal tenderness. There is no guarding or rebound. Musculoskeletal: Cervical back: Neck supple. Right lower leg: No edema. Left lower leg: No edema. Neurological: Mental Status: She is alert. Assessment/Plan Problem List Items Addressed This Visit Essential hypertension BP elevated today but typically controlled and monitor PRN. Neoplasm of uncertain behavior of skin C/o irritated mole and wants removed. Decided to perform shave biopsy. Verbal consent obtained and warned of possible bleeding, infection or need for further surgery. Cleansed with alcohol and used 0.5 milliliters of 2% lidocaine with epinephrine to raise wheel. Cleansed with betadine and used 15 blade scalpel to remove lesion. Specimen sent for pathology. Silver nitrate used for hemostasis. Patient tolerated well. Covered with bacitracin and bandage. Will notify of pathology when available Preop examination - Primary Able to proceed with upcoming surgery at low risk for complications. History of HTN but typically controlled with medication. No history of DM or CAD. Not having chest pain or SOB. Recommend routine PAT. documented in this encounter [facility] 02-26-2025 Telephone encount er Note Patient called to let us know she will have an appt with Dr. Browne's office for her clearance 03/28/25. [facility] 02-26-2025 Miscellaneous Notes Formattin g of this note might be different from the original. Patient called to let us know she will have an appt with Dr. Browne's office for her clearance 03/28/25. documented in this encounter [facility] 12-14-2024 History of Presen t illness Narrative Associated Problem(s): Class 2 severe obesity due to excess calories with serious comorbidity and body mass index (BMI) of 37.0 to 37.9 in adult (CMS/HCC) Weight loss indicated Associated Problem(s): Neoplasm of uncertain behavior of skin Lesion likely SK but irritated and changing. Return for shave biopsy. Associated Problem(s): Adult hypothyroidism (CMS/HCC) Labs show elevated TSH and increase synthroid. Associated Problem(s): Annual physical exam Reviewed labs. Discussed proper diet and regular aerobic exercise. Need aerobic exercise 5-6 days a week for 30 minutes at a time. Smaller portions and limit total calories. Colonoscopy every 10 years. Tetanus every 10 years. Advised not to smoke. Images from the original note were not included. Subjective Patient ID: Diane Stewart is a 64 y.o. female who presents for Annual Exam (Wellness/Mole on back). Presents for annual wellness visit. Patient stable today. Weight up 10 pounds since last visit. Tries to walk and stay active. Tries to watch diet and eat healthy. Increased fruits and vegetables. Smaller portions and limits snacking. Tries to limit total daily calories. Labs recently drawn and reviewed. C/o mole on right mid back for several months. Raised and slightly larger. Irritated by bra. Dark in color and wants removal. Review of Systems Respiratory: Negative for cough, shortness of breath and wheezing. Cardiovascular: Negative for chest pain and palpitations. Gastrointestinal: Negative for abdominal pain, diarrhea, nausea and vomiting. Genitourinary: Negative for dysuria. Objective Physical Exam Constitutional: General: She is not in acute distress. Appearance: Normal appearance. HENT: Head: Normocephalic. Right Ear: Tympanic membrane normal. Left Ear: Tympanic membrane normal. Eyes: Extraocular Movements: Extraocular movements intact. Pupils: Pupils are equal, round, and reactive to light. Cardiovascular: Rate and Rhythm: Normal rate and regular rhythm. Heart sounds: No murmur heard. No friction rub. No gallop. Pulmonary: Effort: Pulmonary effort is normal. Breath sounds: Normal breath sounds. No wheezing, rhonchi or rales. Abdominal: General: Bowel sounds are normal. There is no distension. Palpations: Abdomen is soft. Tenderness: There is no abdominal tenderness. There is no guarding or rebound. Musculoskeletal: General: No swelling or tenderness. Cervical back: Neck supple. Right lower leg: No edema. Left lower leg: No edema. Skin: Findings: No erythema or rash. Neurological: General: No focal deficit present. Mental Status: She is alert and oriented to person, place, and time. Cranial Nerves: No cranial nerve deficit. Motor: No weakness. Gait: Gait normal. Assessment/Plan Problem List Items Addressed This Visit Essential hypertension (CMS/HCC) Adult hypothyroidism (CMS/HCC) Labs show elevated TSH and increase synthroid. Relevant Medications levothyroxine (Synthroid, Levoxyl) 125 MCG tablet Annual physical exam - Primary Reviewed labs. Discussed proper diet and regular aerobic exercise. Need aerobic exercise 5-6 days a week for 30 minutes at a time. Smaller portions and limit total calories. Colonoscopy every 10 years. Tetanus every 10 years. Advised not to smoke. Neoplasm of uncertain behavior of skin Lesion likely SK but irritated and changing. Return for shave biopsy. documented in this encounter [facility] 04-23-2024 History of Presen t illness Narrative Reason for Appointment: Patient ID: Diane Stewart is a 63 y.o. female who presents for Well Women Visit Patient presents today for Annual Exam. MEDICATIONS Current Outpatient Medications Medication Instructions bisoprolol-hydroCHLOROthiazide (Ziac) 10-6.25 MG tablet 1 tablet, Oral, Daily Calcium Carbonate-Vit D-Min (CALCIUM 1200 PO) 1,200 mg, Oral, Daily levothyroxine (SYNTHROID, LEVOXYL) 100 mcg, Oral, Daily Misc Natural Products (BEET ROOT PO) 1 tablet, Oral, Daily Multiple Vitamin (multivitamin) tablet 1 tablet, Oral, Daily Turmeric 5-1000 MG capsule 1 tablet, Oral, Daily ALLERGIES Allergies Allergen Reactions Morphine Other Reaction(s): FLUSHING / REDNESS Sulfa Antibiotics Rash PROBLEMS Active Ambulatory Problems Diagnosis Date Noted No Active Ambulatory Problems Resolved Ambulatory Problems Diagnosis Date Noted No Resolved Ambulatory Problems Past Medical History: Diagnosis Date Atypical squamous cell changes of undetermined significance (ASCUS) on vaginal cytology Benign essential HTN (CMS/HCC) Breast cancer screening by mammogram Encounter for gynecological examination (general) (routine) without abnormal findings H/O abdominal hysterectomy HTN (hypertension) (CMS/HCC) Hypothyroidism (CMS/HCC) LGSIL Pap smear of vagina Mild cervical dysplasia Obesity (BMI 30-39.9) Osteopenia Post menopausal syndrome Vaginal high risk HPV DNA test positive HISTORY PAST MEDICAL HISTORY SOCIAL HISTORY Past Medical History: Diagnosis Date Atypical squamous cell changes of undetermined significance (ASCUS) on vaginal cytology Benign essential HTN (CMS/HCC) Breast cancer screening by mammogram Encounter for gynecological examination (general) (routine) without abnormal findings H/O abdominal hysterectomy HTN (hypertension) (CMS/HCC) Hypothyroidism (CMS/HCC) LGSIL Pap smear of vagina Mild cervical dysplasia Obesity (BMI 30-39.9) Osteopenia Post menopausal syndrome Vaginal high risk HPV DNA test positive Social History Tobacco Use Smoking status: Never Smokeless tobacco: Never Substance Use Topics Alcohol use: Not Currently Comment: Occasional alcohol use Drug use: Never FAMILY HISTORY Family History Problem Relation Name Age of Onset Hypertension Mother Arthritis Mother COPD Mother Stroke Father Heart disease Maternal Grandmother Hypertension Sibling SURGICAL HISTORY Past Surgical History: Procedure Laterality Date BUNIONECTOMY Left GANGLION CYST EXCISION Right wrist HYSTERECTOMY PA ARTHROSCOPY KNEE DIAGNOSTIC W/WO SYNOVIAL BX SPX Left 07/21/2016 TONSILLECTOMY TUBAL LIGATION 1985 REVIEW OF SYSTEMS Review of Systems: Review of Systems All other systems reviewed and are negative. OBJECTIVE Objective: Physical Exam Constitutional: Appearance: Normal appearance. She is well-developed. Genitourinary: Vulva normal. Vaginal cuff intact. Cervix is not absent. Uterus is not absent. Cardiovascular: Rate and Rhythm: Normal rate and regular rhythm. Abdominal: General: Bowel sounds are normal. There is no distension. Palpations: Abdomen is soft. Tenderness: There is no abdominal tenderness. There is no guarding or rebound. Musculoskeletal: General: No swelling. Normal range of motion. Right lower leg: No edema. Left lower leg: No edema. Neurological: Mental Status: She is alert and oriented to person, place, and time. Skin: General: Skin is warm and dry. Psychiatric: Mood and Affect: Mood normal. Behavior: Behavior normal. Vitals and nursing note reviewed. Exam conducted with a long lines operator present. Vitals: There is no height or weight on file to calculate BMI. BP: 120/70 No LMP recorded. Patient has had a hysterectomy. ASSESSMENT & PLAN ICD-10-CM 1. Well woman exam with routine gynecological exam Z01.419 THIN PREP TIS PAP AND HR HPV DNA 2. Breast cancer screening by mammogram Z12.31 Bilateral screening mammogram Bilateral screening mammogram 3. Postmenopausal state Z78.0 DEXA bone density Annual: Patient presents today for an annual exam. Patient states she is doing well and has no complaints. Pap was obtained without difficulty and patient given mammogram order to have scheduled/obtained. Orders Placed This Encounter Procedures Bilateral screening mammogram DEXA bone density Follow Up: Patient is to return in one year for annual unless needed otherwise. Documented by Susana Corona LPN on behalf of: Domenico Cortez DO documented in this encounter [facility] Evaluation note Diagnosis Well woman exam with routine gynecological exam Routine gynecological examination Breast cancer screening by mammogram Postmenopausal state Asymptomatic postmenopausal status (age-related) (natural) documented in this encounter [facility]* Diagnosis Annual physical exam- Primary Routine general medical examination at a health care facility Essential hypertension (CMS/HCC) Unspecified essential hypertension Adult hypothyroidism ([facility]) Unspecified hypothyroidism Neoplasm of uncertain behavior of skin Class 2 severe obesity due to excess calories with serious comorbidity and body mass index (BMI) of 37.0 to 37.9 in adult (CMS/HCC) documented in this encounter [facility]* Diagnosis Annual physical exam- Primary Routine general medical examination at a health care facility Essential hypertension Unspecified essential hypertension Adult hypothyroidism Unspecified hypothyroidism Neoplasm of uncertain behavior of skin Class 2 severe obesity due to excess calories with serious comorbidity and body mass index (BMI) of 37.0 to 37.9 in adult ([facility]) Preop examination- Primary Unspecified pre-operative examination Essential hypertension Unspecified essential hypertension Neoplasm of uncertain behavior of skin documented in this encounter [facility] noteNo assessment information availableC[facility] Work Phone: Reason for referral (narrative)No reason for referral information availableC[facility] Work Phone: Summary Purpose Family History No Family History Records FoundNo Family History Records FoundNo Family History Records FoundNo Family History Records Found Advance Directives No Advanced Directives Records FoundNo Advanced Directives Records FoundNo Advanced Directives Records FoundNo Advanced Directives Records Found Additional Source Comments INFORMATION SOURCE (unrecogn ized section and content) DATE CREATED AUTHOR 02/05/2022 [facility] DATE CREATED AUTHOR AUTHOR'S ORGANIZ ATION 12/09/2022 [facility] DATE CREATED AUTHOR AUTHOR'S ORGANIZ ATION 03/30/2025 [facility] EPIC DATE CREATED AUTHOR AUTHOR'S ORGANIZ ATION 04/02/2025 [facility] Reason for Visit (unrecogniz ed section and content) Reason Comments Well Women Visit Reason Comments Annual Exam WellnessMole on back Reason Onset Date Comments Advice Only 02/26/2025 Clearance Reason Comments Follow-up Shave biopsy, Surgic al clearance Care Teams (unrecognized sec tion and content) Machine Adjuster Leader Relationship Specialty Start Date End Date Johnnie Browne MD [address] [place] [phone] PCP - General Family Medicine 04/19/23 Machine Adjuster Leader Relationship Specialty Start Date End Date Johnnie Browne MD [address] [place] [address] PCP - General Family Medicine 04/19/23 Machine Adjuster Leader Relationship Specialty Start Date End Date Johnnie Browne MD [address] [place] [phone] PCP - General Family Medicine 04/19/23 Machine Adjuster Leader Relationship Specialty Start Date End Date Johnnie Browne MD [address] [place] [address] PCP - General Family Medicine 04/19/23 Machine Adjuster Leader Relationship Specialty Start Date End Date Johnnie Browne MD [address] [place] [phone] PCP - General Family Medicine 04/19/23 Machine Adjuster Leader Relationship Specialty Start Date End Date Johnnie Browne MD [address] [place] [address] PCP - General Family Medicine 04/19/23 Machine Adjuster Leader Relationship Specialty Start Date End Date Johnnie Browne MD [address] [place] [address] PCP - General Family Medicine 04/19/23 Johnnie Browne MD [address] [place] [phone] PCP [facility] 02/05/25 Machine Adjuster Leader Relationship Specialty Start Date End Date Johnnie Browne MD [address] [place] [phone] PCP - [facility] 04/19/23 Johnnie Browne MD [address] [place] [phone] PCP [facility] 02/05/25 Team Status: Inactive Member Role Status Dates Johnnie Browne MD Attending Provider Active Star t: March 28, 2025 End: March 28, 2025 Machine Adjuster Leader Relationship Specialty Start Date End Date Johnnie Browne MD [address] [place] [phone] PCP [facility] 04/19/23 Johnnie Browne MD [address] [place] [phone] [facility] 02/05/25 Goals (unrecognized section and content) Goals may be documented in a n alternate section FOR RECORDS PERTAINING TO PATIENTS WHO ARE OR HAVE BEEN ENROLLED IN A CHEMICAL DEPENDENCY/SUBSTANCEABUSE PROGRAM, SOME INFORMATION MAY BE OMITTED. This clinical summary was aggregated from multiple sources. Caution should be exercised in using it in the provision of clinical care. This summary normalizes information from multiple sources, and as a consequence, information in this document may materially change the coding, format and clinical context of patient data. In addition, data may be omitted in some cases. CLINICAL DECISIONS SHOULD BE BASED ON THE PRIMARY CLINICAL RECORDS. [email or web address] [facility]. provides no warranty or guarantee of the accuracy or completeness of information in this document.
== END 2025-03-28 12:19 | disposition home or self-care (01) ==
LOC: LAB 12:18
PROVIDERS: PCP Family Medicine; Visit Provider Family Medicine
DX: L82.1 Other seborrheic keratosis (principal)
CPT/HCPCS: 88305

== ENCOUNTER 2025-05-16 13:27 | Outpatient (OUT) | payer BC, SELFPAY ==
--- NOTE | 2025-05-16 13:33 | MM_ITS ---
Patient Name: ALICIA STEWART MR#: [id number] : 1960 Exam Date: 05/16/2025 Ordering Doctor: DR BOOGIE BROWNE . RADIOLOGY REPORT PROCEDURE: MM TOMOSYNTHESIS SCREENING BI COMPARISON: MM TOMOSYNTHESIS SCREENING BI, 04/30/2024. MM TOMOSYNTHESIS SCREENING BI, 04/01/2023. MG MAMM SCREEN 3D ILDA CAD, 02/01/2022. MG MAMM ILDA SCRN W CAD DIG, 05/22/2013. INDICATIONS: Screening Calculator Name NCI Breast Cancer Risk Assessment Tool 5 Year Breast Cancer Risk 1.40% Lifetime Breast Cancer Risk 5.40% Personal Breast Cancer No Personal Ovarian Cancer No Treatments None Family Cancers None LOCATION: [facility] BREAST COMPOSITION: There are scattered areas of fibroglandular density. FINDINGS: DIAGNOSTIC CATEGORY 1--NEGATIVE. RIGHT BREAST: No significant suspicious finding. LEFT BREAST: No significant suspicious finding. RECOMMENDATIONS: ROUTINE MAMMOGRAM AND CLINICAL EVALUATION IN 12 MONTHS. Dictated by: Fito Aleman DO on 05/16/2025 at 14:41 Approved by: Fito Aleman DO on 05/16/2025 at 14:42
--- OUTSIDE RECORDS SUMMARY | 2025-05-16 13:33 | XMS_ITS | CCD ---
Author Organization [facility] Care Team Providers Care Hand Pleater Name Role Phone CHRISTOPHER, DR AHDLEY Attending Unavailable KARASIK, DR HADLEY Consulting Unavailable ACHARYA, DR SARBJIT Patrick Primary Care Unavailable KARASIK, DR HADLEY Admitting Unavailable KARASIK, DR HADLEY Admitting Unavailable KARASIK, DR HADLEY Attending Unavailable KARASIK, DR HADLEY Consulting Unavailable ACHARYA, DR SARBJIT Patrick Primary Care Unavailable WEST, DR FLAKITA Conroy Consulting Unavailable Johnnie Browne MD Primary Care Provider Johnnie Browne MD Unavailable Johnnie Browne MD Attending Provider Johnnie Browne Attending Unavailable Johnnie Browne Admitting Unavailable Unavailable Primary Care Provider UnavailJohnnie Jones MD Primary Care Provider Johnnie Browne MD Unavailable MIRA, ZAID S Referring Unavailable FLAKITA SAWYER Attending Unavailable SILVERIOFLAKITA Referring Unavailable SILVERIOFLAKITA BALL Referring Unavailable RUSHER, ZAID S Admitting Unavailable RUSHER, ZAID S Attending Unavailable RUSHER, ZAID S Referring Unavailable RUSHER, ZAID S Attending Unavailable RUSHER, ZAID S Referring Unavailable NADERERJOHNNIE Attending Unavailable NADERERJOHNNIE Attending Unavailable RUSHER, ZAID S Attending Unavailable RUSHER, ZAID S Attending Unavailable RUSHER, ZAID S Referring Unavailable Allergies Allergy Classification Reported Allergen(s) Allergy Type Date of Onset Reaction(s) Facility (2 sources) Morphine; Translations: [MORPHINE] Drug Allergy 5 [facility] Repository (18 sources) Morphine Drug Allergy 3 [facility] Work Phone: (18 sources) Sulfonamides (Antibiotic) Drug Allergy 3 Rash [facility] Healthcare (1 source) Sulfonamides (Antibiotic); Translations: [SULFA (SULFONAMIDE ANTIBIOTICS)] Propensity to adverse reactions to drug (disorder) 3 [facility] Repository Medications Current Medications Medication Drug Class(es) Dates Sig (Normalized) Sig (Original) atorvastatin 10 mg oral tablet (17 sources) HMG-CoA Reductase Inhibitor Start: 07-27-2024 take [...] mg / hydroCHLOROthiazide 6.25 mg oral tablet (18 sources) Thiazide Diuretic, beta-Adrenergic Bj Start: 12-03-2024 take 1 tablet by mouth once daily bisoprolol-hydroCHLOROthiazide (Ziac) 10-6.25 MG tablet Indications: Essential (primary) hypertension , Benign essential hypertension TAKE 1 TABLET BY MOUTH EVERY DAY 90 tablet 3 12/03/2024 Active Start: 12-03-2024 take 1 tablet by roselyn th once in the morning bisoprolol-hydroCHLOROthiazide (ZIAC) 10 -6.25 mg per tablet Take 1 tablet by mouth in the morning. 12/03/2024 Active Start: 12-08-2023 take 1 tablet by roselyn th once daily bisoprolol-hydroCHLOROthiazide (Ziac) 10 -6.25 MG tablet Indications: Essential (primary) hypertension (CMS/HCC) , Benign essential hypertension (CMS/HCC) TAKE 1 TABLET BY MOUTH EVERY DAY 90 tablet 3 12/08/2023 Active Calcium Carbonate (1 source) take 1 tablet by mouth in the morning calcium carbonate (CALCIUM 500 ORAL) Take 1 tablet by mouth in the morning. Active Cholecalciferol (13 sources) Vitamin D Cholecalciferol (EQL VITAMIN D3 GUMMIES PO) Take by mouth Active levothyroxine sodium 0.125 mg oral tablet (20 sources) l-Thyroxine Start: take 1 tablet by [...] (Reorder) Misc Natural Products (BEET ROOT PO) (16 sources) take 1 tablet by roselyn th once daily Misc Natural Products (BEET ROOT PO) Take 1 tablet by mouth Daily Active Multiple Vitamin (multivitamin) tablet (16 sources) take 1 tablet by roselyn th once daily Multiple Vitamin (multivitamin) tablet Take 1 tablet by mouth Daily Active NON FORMULARY (1 source) take 2 doses by mout h in the morning NON FORMULARY Take 2 each by mouth in the morning. Med Name: beet root, gummies. Active red yeast rice 600 mg oral capsule (1 source) take 2 capsules by m outh in the morning red yeast rice 600 mg capsule Take 2 capsules by mouth in the morning. Active Turmeric extract (16 sources) take 1 tablet by roselyn th once daily Turmeric 5-1000 MG capsule Take 1 tablet by mouth Daily Active turmeric/turmeric ext/pepr ext (turmeric-turmeric ext-pepper) 900-100-5 mg capsule (1 source) take 1 tablet by roselyn th in the morning turmeric/turmeric ext/pepr ext (turmeric-turmeric ext-pepper) 900-100-5 mg capsule Take 1 tablet by mouth in the morning. Active Completed/Discontinued Medications Medication Drug Class(es) Dates [...] Problem Classification Problem Date Documented Date Episodic/Chronic Acquired foot deformities (2 sources) Hallux valgus (acquired), right foot; Translations: [Hallux valgus (acquired)] 04-16-2025 Chronic Essential hypertension (18 sources) Essential hypertension; Translations: [Essential (primary) hypertension] Onset: 10-22-2024 10-22-2024 Chronic Immunizations and screening for infectious disease (1 source) Encounter for screening for human papillomavirus (HPV); Translations: [ENC SCREENING HUMAN PAPILLOMAVIRUS] Onset: 01-26-2022 Episodic Osteoarthritis (12 sources) Primary gonarthrosis, bilateral; Translations: [Bilateral primary osteoarthritis of knee] Onset: 12-14-2024 12-14-2024 Chronic Other connective tissue disease (4 sources) Pain in right foot; Translations: [Pain in right foot] 04-16-2025 Episodic Other nervous system disorders (2 sources) Difficulty walking; Translations: [Difficulty in walking, not elsewhere classified] 04-16-2025 Chronic Other non-traumatic joint disorders (2 sources) Instability of joint of right ankle; Translations: [Other instability, right ankle] 04-16-2025 Episodic Other nutritional; endocrine; and metabolic disorders (14 sources) Severe obesity; Translations: [Class 2 severe obesity due to excess calories with serious comorbidity and body mass index (BMI) of 37.0 to 37.9 in adult (CMS/[facility])] Onset: 12-14-2024 12-14-2024 Chronic Other screening for suspected conditions (not mental disorders or infectious disease) (10 sources) Encounter for screening mammogram for malignant neoplasm of breast; Translations: [Encounter for screening for malignant neoplasm of cervix] Onset: 01-25-2022 Episodic Residual codes; unclassified (2 sources) Postmenopausal state; Translations: [Asymptomatic menopausal state] 04-23-2024 Episodic Residual codes; unclassified (4 sources) History of operative procedure on foot; Translations: [Other specified postprocedural states] 04-16-2025 Episodic Residual codes; unclassified (1 source) Other specified postprocedural states; Translations: [Other specified postprocedural states] Onset: 04-25-2025 Episodic Thyroid disorders (15 sources) Hypothyroidism; Translations: [Hypothyroidism, unspecified] Onset: 10-22-2024 10-22-2024 Chronic Unclassified (1 source) Autogenerated Problem Onset: 03-08-2025 03-08-2025 Unclassified (1 source) right hallux valgus Onset: 04-25-2025 Past or Other Problems Problem Classification Problem Date Documented Da te Episodic/Chronic Diabetes mellitus without complication (12 sources) Prediabetes; Translations: [Prediabetes] Onset: 12-14-2024 12-14-2024 Episodic Neoplasms of unspecified nature or uncertain behavior (15 sources) Neoplasm of uncertain behavior of skin; Translations: [Neoplasm of uncertain behavior of skin] Onset: 12-14-2024 12-14-2024 Episodic Other bone disease and musculoskeletal deformities (13 sources) Osteopenia; Translations: [Other specified disorders of bone density and structure, left thigh] Onset: 05-02-2024 05-02-2024 Episodic Unclassified (1 source) Preprocedural examination done 04-10-2025 Results Test Name Value Interpretation Reference Range Facility XR Foot - right 3 [facility] Result: AP, medial oblique, lateral viewsAre nonweightbearing. Orthopedic implant across the 1st metatarsal osteotomy intact without lucency or back out. Hallux is rectus at the 1st MTP. [facility] iodine [facility] Study observation (narrative) [facility] ECG 12 leadon 04-10-2025 [facility] BASIC METABOLIC PANELon Anion gap [Moles/Vol] 9 mmol/L Normal 5-15 [facility] Comment on above: Performed By: #### B MP #### [facility] ([facility]) [address] [place] [address] VIR Calcium [Mass/Vol] 9.2 mg/dL Normal 8.5-10.5 [facility] Comment on above: Performed By: #### B MP #### [facility] ([facility]) [address] [place] [address] VIR Chloride [Moles/Vol] 105 mmol/L Normal 98-109 [facility] Comment on above: Performed By: #### B MP #### [facility] ([facility]) [address] [place] [address] VIR CO2 [Moles/Vol] 26 mmol/L Normal 22-32 [facility] Comment on above: Performed By: #### B MP #### [facility] ([facility]) [address] [place] [address] VIR Creatinine [Mass/Vol] 0.75 mg/dL Normal 0.40-1.00 [facility] Comment on above: Result Comment: METH OD TRACEABLE TO IDMS STANDARD Performed By: #### B MP #### [facility] ([facility]) [address] [place] [address] VIR GFR/1.73 sq M.predicted among non-blacks MDRD (S/P/Bld) [Vol rate/Area] 88 mL/min/{1.73_m2} Normal >=60 [facility] Comment on above: Result Comment: Repo rted eGFR is based on the CKD-EPI 2020 equation that does not use a race coefficient. Performed By: #### B MP #### [facility] ([facility]) [address] [place] [address] VIR Glucose [Mass/Vol] 124 mg/dL High 65-99 [facility] Comment on above: Performed By: #### B MP #### [facility] ([facility]) [address] [place] [address] VIR Potassium [Moles/Vol] 3.9 mmol/L Normal 3.5-5.0 [facility] Comment on above: Performed By: #### B MP #### [facility] ([facility]) [address] [place] [address] VIR Sodium [Moles/Vol] 140 mmol/L Normal 134-146 [facility] Comment on above: Performed By: #### B MP #### [facility] ([facility]) [address] [place] [address] VIR Urea nitrogen [Mass/Vol] 19 mg/dL Normal 5-27 [facility] Comment on above: Performed By: #### B MP #### [facility] ([facility]) [address] [place] [address] VIR Basic Metabolic Panelon Anion gap [Moles/Vol] 9 mmol/L 5 - 15 mmol/L [facility] Calcium [Mass/Vol] 9.2 mg/dL 8.5 - 10. 5 mg/dL [facility] Chloride [Moles/Vol] 105 mmol/L 98 - 109 mmol/L [facility] CO2 [Moles/Vol] 26 mmol/L 22 - 32 mmol/L [facility] Creatinine [Mass/Vol] 0.75 mg/dL 0.40 - 1.00 mg/dL [facility] Comment on above: METHOD TRACEABLE TO IDID STANDARD EGFR Non-Race Dependent 88 - PINF [facility] Comment on above: Reported eGFR is bas ed on the CKD-EPI 2020 equation that does not use a race coefficient. Glucose [Mass/Vol] 124 mg/dL High 65 - 99 mg/dL [facility] Interpretation and review of laboratory results Abnormal [facility] Potassium [Moles/Vol] 3.9 mmol/L 3.5 - 5.0 mmol/L [facility] Sodium [Moles/Vol] 140 mmol/L 134 - 146 mmol/L [facility] Urea nitrogen [Mass/Vol] 19 mg/dL 5 - 27 mg/dL [facility] Tho 03-29-2025 L Specimen: [id number] Received: 03/29/25 Status: HASMUKH Brown Num: [id number] Spec Type: Surgical Subm Dr: Johnnie Browne MD Tissues: A Skin-Other than Cyst, tag, debridement or plastic repair (RIGHT MID BACK) Procedures: Niki COLLADO/Tianna L4 Age/ Patient Sex Location Account Attending Physician Diane Stewart 64/F [facility] [id number] Johnnie Browne MD SPEC NUM: [id number] RECD: 03/29/25 STATUS: HASMUKH BROWN NUM: [id number] RL: 03/29/25- SUBM DR: Johnnie Browne MD ENTERED: 03/29/[address]: SPEC TYPE: Surgical DEPT: [facility] GREEN ENTERED BY: [id number] RECV BY: [id number] ORDERED: Niki COLLADO/Tianna L4 ORDERED: Johnathon COLLADO L4 Pathological Diagnosis Skin lesion, right mid [...] submitted in a single cassette. (1, ns, [id number]) Main container is received without a source site; therefore, the office is called. A message is left on 03/29/2025 at 1327 to please call us back and verify the specimen source site- Microscopic Description Microscopic examination is performed. Specimen: [id number] Received: 03/29/25-1321 Status: DAYANARAAudrey Kevin Num: [id number] Spec Type: Surgical Subm Dr: Johnnie Browne MD Tissues: A Skin-Other than Cyst, tag, debridement or plastic repair (RIGHT MID BACK) Procedures: Niki COLLADO/Tianna L4 Patient: ColesuzyDiane K [id number] (Continued) Specimen: [id number] Received: 03/29/25 (Continued) Signed (signature on file) Christ Jean Baptiste MD 04/01/251431 Specimen: [id number] Received: 03/29/25 Status: HASMUKH Brown Num: [id number] Spec Type: Surgical Subm Dr: Johnnie Browne MD Tissues: A Skin-Other than Cyst, tag, debridement or plastic repair (RIGHT MID BACK) Procedures: Niki COLLADO/Tianna Olivera Patient: Diane Stewart [id number] (Continued) Specimen: [id number] Received: 03/29/25 (Continued) CPT Codes 45747 Specimen: [id number] Received: 03/29/25 Status: HASMUKH Anayamonique Num: [id number] Spec Type: Surgical Subm Dr: Johnnie Browne MD Tissues: A Skin-Other than Cyst, tag, debridement or plastic repair (RIGHT MID BACK) Procedures: Niki COLLADO/Tianna L4 Patient: Diane Stewart [id number] (Continued) Signed (signature on file) Christ Jean Baptiste MD 04/01/25 2313 Normal [facility] IGP,APTIMA HPV,AGE GDLNon AGE GDLN ACOG TESTING Note . [facility] Comment on above: TESTS RESULT FLAG UN ITS REF RANGE LAB Clinician Provided Cytology Information Source.............Vagina No. of containers..01 ThinPrep Vial Age Algo ACOG Susan... FLAG LEGEND: L-Low Normal,H-High Normal,LL-Alert Low,HH-Alert High <-Panic Low,>-Panic High,A-Abnormal,AA-Critical Abnormal Performed at: 01 =G [facility] [address] Mari Cunningham MD, HPV APTIMA Negative Negative [facility] Comment on above: This nucleic acid am plification test detects fourteen high- risk HPV types (16,18,31,33,35,39,45,51,52,56,58,59,66,68) without differentiation. Performed at: =G - [facility] [id number] [place]: Mari Cunningham MD, Phone: [phone] Performed at: [facility] [address] [place] [id number] [place]: Abiel Boyer MD, Phone: [phone] IGP, APTIMA HPV, RFX 16/18,45 Note . [facility] Comment on above: TESTS RESULT FLAG UN ITS REF RANGE LAB DIAGNOSIS: 02 NEGATIVE FOR INTRAEPITHELIAL LESION OR MALIGNANCY. THIS SPECIMEN WAS RESCREENED PART OF OUR LAUNDRY MACHINE TENDER PROGRAM. Specimen adequacy: 02 Satisfactory for evaluation. No endocervical cells are present. This is consistent with a history of hysterectomy. Performed by: 02 Diane Lopez, Testing Consultant ([facility]) QC reviewed by: 02 Ata Grimes, Testing Consultant ([facility]) . 02 Note: Note 03 The Pap [...] High,A-Abnormal,AA-Critical Abnormal Performed at: 02 [facility] [address] [place] [address] Abiel Boyer MD, 03 WB [facility] [address] [address] Mari Cunningham MD, SP[facility] 12-08-2022 Lab Reports [id number] #[id number]:127 Normal [facility] MG MAMM SCREEN 3D ILDA CADon 02-01-2022 MG MAMM SCREEN 3D ILDA CAD Patient: DIANE STEWART Exam Date: 02/01/2022 : 1960 Gender:F Ordering : DR JOMAR WHITE . Admission #: [id number] Family : DR SARBJIT ACHARYA . Order #: [id number] CLICK HERE TO VIEW EXAM RADIOLOGY REPORT [...] No Treatments None Family Cancers None LOCATION: [facility] BREAST COMPOSITION: Heterogeneously dense,which may obscure [...] Flakita Mead MD on 02/01/2022 at 10:[address] [facility] PAP ACOG PANEL 2: 30 to 65on 01-28-[address] [facility] Comment on above: Result Comment: Perf ormed at: WB Performed By: #### [id number] #### [facility] [address] [address] [address] Kim Pérez Age Gdln ACOG Testing 30-[address] [facility] Comment on above: Performed By: #### 4 [id number] #### [facility] [address] [address] [address] Kim Pérez DIAGNOSIS: Comment Normal [facility] Comment on above: Result Comment: NEGA TIVE FOR INTRAEPITHELIAL LESION OR MALIGNANCY. Performed at: WB Performed By: #### 4 [id number] #### [facility] [address] [place] [address] Dr. Kim Pérez HPV Aptima Negative Normal Negative [facility] Comment on above: Result Comment: This nucleic acid amplification test detects fourteen high-risk HPV types (16,18,31,33,35,39,45,51,52,56,58,59,66,68) without differentiation. Performed at: =G Performed By: #### 4 [id number] #### [facility] [address] [place] [address] Dr. Kim Pérez Methodology: Comment Normal [facility] Comment on above: Result Comment: This liquid based ThinPrep(R) pap test was screened with the use of an image guided system. Performed at: WB Performed By: #### 4 [id number] #### [facility] [address] [place] [address] Dr. Kim Pérez Note: Comment Normal [facility] Comment on above: Result Comment: The Pap smear is a screening test designed to aid in the detection of premalignant and malignant conditions of the uterine cervix. It is not a diagnostic procedure and should not be used as the sole means of detecting cervical cancer. Both false-positive and false-negative reports do occur. . Performed at: WB Performed By: #### 4 [id number] #### [facility] [address] [place] [address] Dr. Kim Pérez Performed by: Comment Normal [facility] Comment on above: Result Comment: Reba Kelly, Testing Consultant (ASCP) Performed at: WB Performed By: #### 4 [id number] #### [facility] [address] [place] [address] Dr. Kim Pérez Specimen adequacy: Comment Normal [facility] Comment on above: Result Comment: Sati sfactory for evaluation. No endocervical cells are present. This is consistent with a history of hysterectomy. Performed at: WB Performed By: #### 4 [id number] #### [facility] [address] [address] [address] Kim Pérez Vital Signs Date Time Vital Sign Value Performing Clinician Facility 05-08-2025 10:41-0400 Body height 162.6 cm Zaid Rusher DPM Work Phone: [facility] 05-08-2025 10:41-0400 Body mass index (BMI) [Ratio] 37.25 kg/m2 Zaid Rusher DPM Work Phone: [facility] 05-08-2025 10:41-0400 Body weight 98.43 kg Zaid Rusher DPM Work Phone: [facility] 04-16-2025 14:36-0400 Body height 162.6 cm Zaid Rusher DPM Work Phone: [facility] 04-16-2025 14:36-0400 Body mass index (BMI) [Ratio] 37.25 kg/m2 Zaid Rusher DPM Work Phone: [facility] 04-16-2025 14:36-0400 Body weight 98.43 kg Zaid Rusher DPM Work Phone: [facility] 04-09-2025 09:31-0400 Body height 162.6 cm [facility] 04-09-2025 09:31-0400 Body mass index (BMI) [Ratio] 36.05 kg/m2 [facility] 04-09-2025 09:31-0400 Body weight 95.25 kg [facility] 03-28-2025 13:13-0400 Body height 162.6 cm Johnnie Browne MD Work Phone: [facility] 03-28-2025 13:13-0400 Body mass index (BMI) [Ratio] 37.25 kg/m2 Johnnie Browne MD Work Phone: [facility] 03-28-2025 13:13-0400 Body temperature 96.6 [degF] Johnnie Browne MD Work Phone: [facility] 03-28-2025 13:13-0400 Body weight 98.43 kg Johnnie Browne MD Work Phone: [facility] 03-28-2025 13:13-0400 Diastolic blood pressure 64 mm[Hg] Johnnie Browne MD Work Phone: [facility] 03-28-2025 13:13-0400 Heart rate 71 /min Johnnie Browne MD Work Phone: [facility] 03-28-2025 13:13-0400 Respiratory rate 20 /min Johnnie Browne MD Work Phone: [facility] 03-28-2025 13:13-0400 SaO2% (BldA) [Mass fraction] 94 % Johnnie Browne MD Work Phone: [facility] 03-28-2025 13:13-0400 Systolic blood pressure 150 mm[Hg] Johnnie Browne MD Work Phone: [facility] 12-14-2024 11:29-0400 Body height 162.6 cm Johnnie Browne MD Work Phone: [facility] 12-14-2024 11:29-0400 Body mass index (BMI) [Ratio] 37.76 kg/m2 Johnnie Browne MD Work Phone: [facility] 12-14-2024 11:29-0400 Body temperature 97.11 [degF] Johnnie Browne MD Work Phone: [facility] 12-14-2024 11:29-0400 Body weight 99.79 kg Johnnie Browne MD Work Phone: [facility] 12-14-2024 11:29-0400 Diastolic blood pressure 86 mm[Hg] Johnnie Browne MD Work Phone: [facility] 12-14-2024 11:29-0400 Heart rate 69 /min Johnnie Browne MD Work Phone: [facility] 12-14-2024 11:29-0400 Respiratory rate 20 /min Johnnie Browne MD Work Phone: [facility] 12-14-2024 11:29-0400 SaO2% (BldA) [Mass fraction] 96 % Johnnie Browne MD Work Phone: [facility] 12-14-2024 11:29-0400 Systolic blood pressure 154 mm[Hg] Johnnie Borwne MD Work Phone: [facility] 04-23-2024 15:24-0400 Body weight 98.03 kg Robert Diego DO Work Phone: [facility] 04-23-2024 15:24-0400 Diastolic blood pressure 70 mm[Hg] Robert Diego DO Work Phone: [facility] 04-23-2024 15:24-0400 Systolic blood pressure 120 mm[Hg] Robert Diego DO Work Phone: [facility] Healthcare Encounters Encounter Date Encounter Type Care Provider Facility Start: 05-08-2025 End: 05-08-2025 Bamboo flowsheet Zaid Weber DPM Work Phone: [facility] Start: 05-08-2025 End: 05-08-2025 Bamboo flowsheet Zaid Weber DPM Work Phone: [facility] Start: 05-08-2025 End: 05-08-2025 Postop follow up visit related to original px Zaid Weber DPM Work Phone: [facility] Comment on above: S/P foot surgery (Pr imary Dx); Right foot pain Start: 05-08-2025 End: 05-08-2025 ambulatory ZAID S MIRA Not Available Start: 04-25-2025 End: 04-25-2025 Evaluation and management of inpatient ZAID WEBER [facility] Start: 04-16-2025 End: 04-16-2025 Office outpatient visit 25 minutes Zaid Weber DPM Work Phone: [facility] Comment on above: Hallux valgus of rig ht foot (Primary Dx); Right foot pain; S/P foot surgery; Instability of right ankle joint; Difficulty walking Start: 04-16-2025 End: 04-16-2025 ambulatory ZAID WEBER Not Available Start: 04-16-2025 End: 04-16-2025 Bamboo flowsheet Zaid Weber DPM Work Phone: [facility] Start: 04-16-2025 End: 04-16-2025 Bamboo flowsheet Zaid Weber DPM Work Phone: [facility] Start: 04-09-2025 End: 04-09-2025 ambulatory FLAKITA SAWYER [facility] Start: 04-09-2025 Encounter for other preprocedural examination [facility] Start: 04-09-2025 End: 04-09-2025 Patient encounter procedure [facility] Pre-Admission Testing 2 [facility] - Pre Admit Comment on above: Preop examination (P rimary Dx); Hypertension, unspecified type Start: 04-09-2025 End: 04-09-2025 Preprocedural examination done [address] Start: 04-01-2025 End: 04-01-2025 Telephone encounter Johnnie Browne MD Work Phone: [facility] Start: 03-28-2025 End: 03-28-2025 Bamboo flowsheet Johnnie Browne MD Work Phone: [facility] Start: 03-28-2025 End: 03-28-2025 Bamboo flowsheet Johnnie Browne MD Work Phone: [facility] Start: 03-28-2025 End: 03-28-2025 Departed Referred Johnnie Browne MD -LAB [facility] Start: 03-28-2025 End: 03-28-2025 Office outpatient visit 15 minutes Johnnie Browne MD Work Phone: [facility] Comment on above: Preop examination (P rimary Dx); Essential hypertension ; Neoplasm of uncertain behavior of skin Start: 03-28-2025 End: 03-28-2025 Preprocedural examination done Johnnie Browne MD Work Phone: [facility] Work Phone: Start: 03-28-2025 End: 03-28-[address] [facility] Work Phone: Start: 02-26-2025 End: 03-01-2025 Telephone encounter Zaid Weber DPM Work Phone: [facility] Comment on above: Advice Only (Clearan ce ) Start: 12-14-2024 End: 12-14-2024 Bamboo flowsheet Johnnie Browne MD Work Phone: [facility] Start: 12-14-2024 End: 12-14-2024 Bamboo flowsheet Johnnie Browne MD Work Phone: [facility] Start: 12-14-2024 End: 12-14-2024 Patient encounter procedure Johnnie Browne MD Work Phone: [facility] Work Phone: Start: 12-14-2024 End: 12-14-2024 Periodic preventive med est patient 65yrs& older Johnnie Browne MD Work Phone: [facility] Comment on above: Annual physical exam (Primary Dx); Essential hypertension (CMS/HCC); Adult hypothyroidism (CMS/HCC); Neoplasm of uncertain behavior of skin; Class 2 severe obesity due to excess calories with serious comorbidity and body mass index (BMI) of 37.0 to 37.9 in adult (CMS/HCC) Start: 12-14-2024 End: 12-14-2024 ambulatory JOHNNIE BROWNE Not Available Start: 10-22-2024 Patient encounter procedure Johnnie Browne MD Work Phone: [facility] Start: 10-22-2024 End: 10-22-2024 ambulatory ZAID WEBER Not Available Start: 04-23-2024 End: 04-23-2024 Patient encounter procedure Robert Diego DO Work Phone: [facility] Work Phone: Start: 04-23-2024 End: 04-23-2024 Periodic preventive med est patient 40-64yrs Robert Diego DO Work Phone: [facility] Comment on above: Well woman exam with routine gynecological exam; Breast cancer screening by mammogram; Postmenopausal state Start: 04-23-2024 End: 04-23-2024 Bamboo flowsheet Robert Diego DO Work Phone: [facility] Start: 04-23-2024 End: 04-30-2024 Bamboo flowsheet Robert Diego DO Work Phone: [facility] Start: 04-23-2024 End: 04-30-2024 Clinisync Result Encounter Robert Diego DO Work Phone: [facility] External Department Unsolicited Start: 12-03-2022 ambulatory Facility:[facility] Start: 02-01-2022 End: 02-02-[address] JOMAR WHITE Facility:[facility] Start: 01-25-2022 End: 01-25-[address] JOMAR WHITE Facility:[facility] Procedures Date Procedure Procedure Detail Performing Clinician Start: 05-08-2025 Radex foot complete minimum 3 views Zaid Weber DPM Work Phone: Start: 04-30-2024 Mammography Robert Fazi o DO Work Phone: Start: 04-23-2024 IGP,APTIMA HPV,AGE GDLN Robert Diego DO Work Phone: Start: 08-11-2016 Colonoscopy Johnnie almonte MD Work Phone: Plan of Treatment Date Care Activity Detail Author Start: 08-11-2026 Screening for malign ant neoplasm of colon [facility] Start: 04-09-2026 Adult BMI Screening Adult BMI Screen ing [facility] Start: 04-09-2026 Tobacco Screening Tobacco Screening [facility] Start: 09-30-2025 End: 09-30-2025 Patient encounter procedure 09/30/2025 2:30 PM EST Office Visit [facility] [address] [place] [address] Johnnie Browne MD [address] [place] [address] [facility] Start: 06-12-2025 End: 06-12-2025 Patient encounter procedure 06/12/2025 10:00 AM EST Procedure Visit [facility] [address] [place] [phone] Bailey Patel PA [address] [place] [address] [facility] Start: 05-22-2025 End: 05-22-2025 Patient encounter procedure [facility] Start: 05-08-2025 End: 05-08-2025 Patient encounter procedure [facility] Comment on above: Arrived Start: 05-01-2025 End: 05-01-2025 Patient encounter procedure [facility] Start: 04-30-2025 Screening for malign ant neoplasm of breast Mammogram [facility] Start: 04-25-2025 End: 04-25-2025 Admission to same day surgery center 04/25/2025 7:30 AM EDT - 04/25/2025 8:30 AM EDT Surgery [facility] [address] [place] [phone] Zaid Weber, DPM [address] [place], [place] [id number] BUNIONECTOMY FOOT JULIANA [51551 (CPT )] [facility] Comment on above: BUNIONECTOMY FOOT AU STIN [07218 (CPT )] Start: 04-25-2025 End: 04-25-2025 Anesthesia consultation 04/25/2025 7:30 AM EDT Anesthesia Event [facility] [address] [place] [address] Navid Orozco, DO [address] [place] [address] [facility] Start: 04-25-2025 End: 04-25-2025 Corrj hallux valgus w/sesmdc w/dist metar osteot BUNIONECTOMY FOOT right hallux valgus 04/25/2025 7:30 AM EDT [facility] Start: 04-25-2025 End: 04-25-2025 Corrj hallux valgus w/sesmdc w/prox phlnx osteot OSTEOTOMY NHUNG FOOT right hallux valgus 04/25/2025 7:30 AM EDT [facility] Start: 04-25-2025 Subsequent hospital visit by physician 04/25/2025 7:30 AM EDT Hospital Encounter [facility] Surgery [address] [place] [phone] Zaid Weber, DPM [address] [place] [address] [facility] Start: 04-16-2025 End: 04-16-2025 Patient encounter procedure [facility] Comment on above: Arrived Start: 04-08-2025 Influenza vaccination [facility] Start: 03-28-2025 End: 03-28-2025 Patient encounter procedure [facility] Comment on above: Arrived Start: 12-14-2024 End: 12-14-2024 Patient encounter procedure 12/14/2024 11:30 AM EDT Office Visit [facility] [address] [place] [phone] Johnnie Browne MD [address] [place] [phone] Arrived [facility] Comment on above: Arrived Start: 11-11-2024 Fall Risk Screening Fall Risk Screen ing [facility] Start: 04-23-2024 End: 04-23-2024 Patient encounter procedure 04/23/2024 3:00 PM EDT Office Visit [facility] [address] [place] [phone] DiegoRobert black, DO [address] [place] [address] Arrived [facility] Comment on above: Arrived Start: 04-23-2024 End: 04-23-2025 DXA Skeletal system Views for bone density DEXA bone density Imaging Routine Postmenopausal state Expected: 04/23/2024 (Approximate), Expires: 04/23/2025 [facility] Comment on above: Expected: 04/23/2024 (Approximate), Expires: 04/23/2025 Start: 04-23-2024 End: 06-23-2025 MG Breast - bilateral Screening Bilateral screening mammogram Imaging Routine Breast cancer screening by mammogram Expected: 04/23/2024, Expires: 06/23/2025 [facility] Work Phone: Comment on above: Expected: 04/23/2024 , Expires: 06/23/2025 Start: 04-08-2024 Influenza vaccination Influenza Vacc ine (#1) [facility] Start: 11-11-2009 Administration of varicella zoster vaccine Zoster (Shingles) Vaccine (1 of 2) [facility] Start: 11-11-2009 Pneumococcal Vaccine : 65+ Years (1 of 1 - PCV) Pneumococcal Vaccine: 65+ Years (1 of 1 - PCV) [facility] Start: 1999 Screening for malign ant neoplasm of breast Mammogram [facility] Start: 11-11-1989 Screening for malign ant neoplasm of cervix [facility] Start: 11-11-1980 Screening for malign ant neoplasm of cervix Pap Smear [facility] Start: 11-11-1978 DTaP,Tdap and Td Vaccines (1 - Tdap) DTaP,Tdap and Td Vaccines (1 - Tdap) [facility] Start: 11-11-1977 Adult BMI Follow Up Plan Adult BMI F ollow Up Plan [facility] Start: 1971 Depression Screening Depression Scre ening [facility] Start: 1959 Screening for malign ant neoplasm of colon [facility] THIN PREP TIS PAP AN D HR HPV DNA THIN PREP TIS PAP AND HR HPV DNA Pathology and Cytology Routine Well woman exam with routine gynecological exam Ordered: 04/23/2024 [facility] Comment on above: Ordered: 04/23/2024 Immunizations Immunization Date Immunization Notes Care Provider Festus esparza 06-04-2019 influenza virus vaccine, unspecified formulation [facility] 05-08-2015 influenza virus vaccine, unspecified formulation Robert Cortez DO Work Phone: [facility] Payers Date Payer Category Payer Self-pay 2024 Medicare [id number] 2021 [facility] BCBS Memb er Subscriber Plan / Payer (Effective 2021-Present) Name: Diane Stewart Relation to Subscriber: Self Name: Diane Stewart Payer ID: Not on file Type: Not on file Address: [address] [place] [phone] 2021 [facility] Managed Care - O ANTHEM [id number] 2021 Unknown BCBS BCBS xxxxxx [id number] 2021-Present [phone] [address] [place] [address] [id number] 1959 Unknown [id number] 2.16.840.1.414706.3.579. 2.593 1959 Unknown [id number] 2.16.840.1.725067.3.579. 2.593 1959 Unknown [id number] 2.16.840.1.423162.3.579. 2.1286 1959 Unknown [id number] 2.16.840.1.622059.3.579. 2.1286 1959 Unknown [id number] 2.16.840.1.591026.3.579. 2.1286 1959 Unknown [id number] 2.16.840.1.893993.3.579. 2.1286 1959 Unknown [id number] 2.16.840.1.750709.3.579. 2.1259 1959 Unknown [id number] 2.16.840.1.481724.3.579. 2.1259 1959 Unknown [id number] 2.16.840.1.488568.3.579. 2.1259 1959 Unknown [id number] 2.16.840.1.843124.3.579. 2.1259 1959 Unknown [id number] 2.16.840.1.631180.3.579. 2.1259 1959 Unknown [id number] 2.16.840.1.662785.3.579. 2.1259 1959 Unknown [id number] 2.16.840.1.583564.3.579. 2.1259 1959 Unknown [id number] Social History Date Type Detail Facility Start: 04-07-2023 End: 04-09-2025 Tobacco smoking status NHIS Never smoked tobacco [facility] Start: 04-07-2023 End: 04-09-2025 Tobacco use and exposure Smokeless tobacco non-user [facility] Start: 04-23-2024 End: 05-08-2025 Alcoholic beverage intake Ex-drinker (finding) [facility] Start: 04-23-2024 End: 05-08-2025 History of Social function [facility] Start: 04-23-2024 End: 05-08-2025 Tobacco use panel [facility] Start: 04-07-2023 Alcohol Comment Occasional alcohol u se [facility] Start: 1960 Sex assigned at Not on file [facility] if [facility] smoked [facility] Work Phone: Start: 03-13-2015 Sex Female (finding) [facility] Start: 1960 Sex Assigned At Female F [facility] Unknown [facility] Goals Date Patient Goal Desired Activity /State Personal health goal Clinical Notes 04-23-2024 to 05-08-2025 Zaid Weber DPM - 05/08/2025 10:45 AM Arleen Weber DPM - 04/16/2025 2:15 PM EDTPatient InstructionsTelephone Encounter - Johnnie Browne MD - 04/01/2025 3:25 PM EDT Note Date & Type Note Facility 05-08-2025 History of Presen t illness Narrative Images from the original note were not included. Subjective Patient ID: Diane Stewart is a 64 y.o. female who presents for Post Op#1 (Diane Stewart 64yo Established patient presents for Post Op#1. DOS 04/25/2025.). HPI Date of surgery 04/25/2025: Juliana bunionectomy, right foot Patient presents to clinic postoperatively. Overall she is doing very well. She has noted some soreness to the foot but otherwise has no issues. Review of Systems Constitutional: Positive for activity change. Negative for appetite change. Respiratory: Negative for chest tightness and shortness of breath. Cardiovascular: Negative for chest pain. Musculoskeletal: Positive for arthralgias and gait problem. Skin: Negative for color change and wound. Neurological: Negative for weakness and numbness. Psychiatric/Behavioral: Negative for agitation and behavioral problems. Hematological: Does not bruise/bleed easily. Endocrine: Negative for cold intolerance and heat intolerance. Allergic/Immunologic: Negative for immunocompromised state. Past medical History Past Medical History: Diagnosis Date Atypical squamous cell changes of undetermined significance (ASCUS) on vaginal cytology Benign essential HTN Breast cancer screening by mammogram Encounter for gynecological examination (general) (routine) without abnormal findings H/O abdominal hysterectomy HTN (hypertension) Hypothyroidism LGSIL Pap smear of vagina Mild cervical dysplasia Obesity (BMI 30-39.9) Osteopenia Post menopausal syndrome Vaginal high risk HPV DNA test positive Medications Current Outpatient Medications: atorvastatin (Lipitor) 10 MG tablet, Take 1 tablet (10 mg) by mouth Daily, Disp: 90 tablet, Rfl: 3 bisoprolol-hydroCHLOROthiazide (Ziac) 10-6.25 MG tablet, TAKE 1 TABLET BY MOUTH EVERY DAY, Disp: 90 tablet, Rfl: 3 Cholecalciferol (EQL VITAMIN D3 GUMMIES PO), Take by mouth, Disp: , Rfl: levothyroxine (Synthroid, Levoxyl) 125 MCG tablet, Take 1 tablet (125 mcg) by mouth Daily, Disp: 90 tablet, Rfl: 3 Misc Natural Products (BEET ROOT PO), Take 1 tablet by mouth Daily, Disp: , Rfl: Multiple Vitamin (multivitamin) tablet, Take 1 tablet by mouth Daily, Disp: , Rfl: Turmeric 5-1000 MG capsule, Take 1 tablet by mouth Daily, Disp: , Rfl: Allergies Morphine and Sulfa antibiotics Past Surgical History Past Surgical History: Procedure Laterality Date BUNIONECTOMY Left GANGLION CYST EXCISION Right wrist HYSTERECTOMY SD ARTHROSCOPY KNEE DIAGNOSTIC W/WO SYNOVIAL BX SPX Left 07/21/2016 TONSILLECTOMY TUBAL LIGATION 1985 Family History Family History Problem Relation Name Age of Onset Hypertension Mother Arthritis Mother COPD Mother Stroke Father Heart disease Maternal Grandmother Hypertension Sibling Objective Physical Exam Constitutional: Appearance: She is obese. Comments: Presents to clinic ambulating unassisted with a fracture boot on the right foot. Accompanied by her . HENT: Head: Normocephalic and atraumatic. Cardiovascular: Pulses: Normal pulses. Pulmonary: Effort: Pulmonary effort is normal. No respiratory distress. Abdominal: Palpations: There is no mass. Musculoskeletal: Cervical back: No rigidity. Comments: Right foot: Incision well coapted with sutures intact. No drainage or cellulitis. Hallux rectus. Mild edema to the forefoot with some mild ecchymosis. Negative Homans test. No tenderness with compression of the calf. Skin: Capillary Refill: Capillary refill takes less than 2 seconds. Findings: No lesion or rash. Neurological: Mental Status: She is alert. Comments: No loss of protective sensation, gross sensation intact. Psychiatric: Mood and Affect: Mood normal. Behavior: Behavior normal. XR foot 3+ views right Imaging Result: AP, medial oblique, lateral viewsAre nonweightbearing. Orthopedic implant across the 1st metatarsal osteotomy intact without lucency or back out. Hallux is rectus at the 1st MTP. Assessment/Plan ICD-10-CM 1. S/P foot surgery Z98.890 XR foot 3+ views right 2. Right foot pain M79.671 XR foot 3+ views right Patient was examined and evaluated. Radiographs of the right foot taken in office and I discussed my findings. I am pleased with the clinical and radiographic appearance. Sutures were removed in office. Incisions reinforced with Steri-Strips. She will continue weight-bearing in a fracture boot. No weight-bearing outside of the fracture boot. Weight-bearing is to be done mainly for necessary activities of daily living and otherwise she should be sitting with her foot elevated above heart level. Continue Tylenol, ibuprofen, pain medication taken only on an as-needed basis. Follow up in 2 weeks for incision check. Patient may shower and get the foot wet. Avoid soaking in a pool or hot tub for an additional 2 weeks. This note was created with the assistance of a speech recognition program. While intending to generate a timely document that accurately reflects the content of the visit, no guarantee can be provided that every grammatical or spelling mistake has been or will be identified or corrected. Thank you for your understanding. Zaid Weber DPM documented in this encounter [facility] 04-16-2025 History of Presen t illness Narrative Images from the original note were not included. Subjective Patient ID: Diane Stewart is a 64 y.o. female who presents for Consent Or Instructions (Established patient presents today for consent and instructions for upcoming surgery. ). HPI Established patient returns to clinic for consent and instructions regarding upcoming right foot surgery. She had reconstructive bunion surgery by Dr. Ragland over 10 years ago and responded very well to surgical intervention. Unfortunately she is continuing to have pain on the right foot with significant bunion deformity which has caused increasing disability over the last few years. Symptoms are worse with certain shoe gear. She has failed extensive conservative care measures at this point and after discussing risks and benefits would like to move forward with surgical intervention. Review of Systems Constitutional: Positive for activity change. Negative for appetite change. Respiratory: Negative for chest tightness and shortness of breath. Cardiovascular: Negative for chest pain. Musculoskeletal: Positive for arthralgias and gait problem. Skin: Negative for color change and wound. Neurological: Negative for weakness and numbness. Psychiatric/Behavioral: Negative for agitation and behavioral problems. Hematological: Does not bruise/bleed easily. Endocrine: Negative for cold intolerance and heat intolerance. Allergic/Immunologic: Negative for immunocompromised state. Past medical History Past Medical History: Diagnosis Date Atypical squamous cell changes of undetermined significance (ASCUS) on vaginal cytology Benign essential HTN Breast cancer screening by mammogram Encounter for gynecological examination (general) (routine) without abnormal findings H/O abdominal hysterectomy HTN (hypertension) Hypothyroidism LGSIL Pap smear of vagina Mild cervical dysplasia Obesity (BMI 30-39.9) Osteopenia Post menopausal syndrome Vaginal high risk HPV DNA test positive Medications Current Outpatient Medications: atorvastatin (Lipitor) 10 MG tablet, Take 1 tablet (10 mg) by mouth Daily, Disp: 90 tablet, Rfl: 3 bisoprolol-hydroCHLOROthiazide (Ziac) 10-6.25 MG tablet, TAKE 1 TABLET BY MOUTH EVERY DAY, Disp: 90 tablet, Rfl: 3 Cholecalciferol (EQL VITAMIN D3 GUMMIES PO), Take by mouth, Disp: , Rfl: levothyroxine (Synthroid, Levoxyl) 125 MCG tablet, Take 1 tablet (125 mcg) by mouth Daily, Disp: 90 tablet, Rfl: 3 Misc Natural Products (BEET ROOT PO), Take 1 tablet by mouth Daily, Disp: , Rfl: Multiple Vitamin (multivitamin) tablet, Take 1 tablet by mouth Daily, Disp: , Rfl: Turmeric 5-1000 MG capsule, Take 1 tablet by mouth Daily, Disp: , Rfl: Allergies Morphine and Sulfa antibiotics Past Surgical History Past Surgical History: Procedure Laterality Date BUNIONECTOMY Left GANGLION CYST EXCISION Right wrist HYSTERECTOMY SD ARTHROSCOPY KNEE DIAGNOSTIC W/WO SYNOVIAL BX SPX Left 07/21/2016 TONSILLECTOMY TUBAL LIGATION 1985 Family History Family History Problem Relation Name Age of Onset Hypertension Mother Arthritis Mother COPD Mother Stroke Father Heart disease Maternal Grandmother Hypertension Sibling Objective Physical Exam Constitutional: Appearance: She is obese. HENT: Head: Normocephalic and atraumatic. Cardiovascular: Pulses: Normal pulses. Pulmonary: Effort: Pulmonary effort is normal. No respiratory distress. Abdominal: Palpations: There is no mass. Musculoskeletal: Cervical back: No rigidity. Comments: Weightbearing examination reveals pes planus morphology. She is able to perform a double heel rise test with some discomfort on the right foot. Right foot: There is lateral deviation of the hallux with prominent medial eminence formation over the 1st MTP. Tenderness to palpation over the 1st MTP. Range of motion of the hallux is smooth, nonpainful. Muscle strength 5/5 for all quadrants without tenderness. Ankle dorsiflexion 0 degrees with the knee extended, flexed. Skin: Capillary Refill: Capillary refill takes less than 2 seconds. Findings: No lesion or rash. Neurological: Mental Status: She is alert. Comments: No loss of protective sensation, gross sensation intact. Psychiatric: Mood and Affect: Mood normal. Behavior: Behavior normal. Assessment/Plan ICD-10-CM 1. Hallux valgus of right foot M20.11 2. Right foot pain M79.671 3. S/P foot surgery Z98.890 4. 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 Difficulty walking R26.2 Patient was examined and evaluated. I reviewed all previous, relevant imaging and lab studies. Due to the patient's continued pain, deformity, disability I have recommended surgical intervention. I discussed reasonable risks and complications of the planned procedures including but not limited to bleeding, infection, numbness, swelling, malunion, nonunion, hardware failure, need for further surgery, DVT, PE, loss of limb and loss of life. I discussed the recovery period for the planned procedures which will include Juliana osteotomy with possible Nhung osteotomy of the right foot. Total recovery time is expected to be around 3 months. After discussing all the risks and benefits of surgical intervention she elects to proceed. We will follow up 2 weeks postoperatively. Patient was fitted today for a below knee walking cast, cam walker. The surgical boot is dispensed in anticipation of right foot postoperatively. I am dispensing this boot at a preoperative appointment so that she can have the boot for her surgical intervention next week. Patient was instructed to bring the boot with her to surgery as it will be donned before she leaves the operative area. At the time of dispensing it was suitable and not substandard. Goals of therapy include prevent further injury, stabilization, reduction of stress and pressure to the operative area. Anticipated time of use is at least 8 weeks. Patient was instructed in the application and removal of this device. It fit well and she demonstrated the ability to don and doff the device independently. ABN form discussed, presented, explained and then signed by patient. This note was created with the assistance of a speech recognition program. While intending to generate a timely document that accurately reflects the content of the visit, no guarantee can be provided that every grammatical or spelling mistake has been or will be identified or corrected. Thank you for your understanding. Zaid Weber DPM documented in this encounter [facility] 04-09-2025 Instructions Diana Vaughn RN - 04/09/2025 9:00 AM EDT Preoperative Education Checklist- General Surgery date: 04/25/25 Surgery time: 730a Arrival time: 610a 1. Bring a photo ID and your insurance card with you the day of surgery. You will check in at the main lobby of the [facility]- registration desk is straight ahead as soon as you walk in. Tell them you are here for surgery. 2. If you have a Living Will/Durable Power of Offal Trimmer for Health Care that is not on file here, please bring a copy the day of surgery. 3. Please shower/bathe the night before surgery with the provided soap or wipes. Do not shower the morning of surgery- you will do use wipes when you arrive here at the hospital before getting into your surgical gown. Do not shave the area of your procedure for 2 days prior to your surgery. 4. NO powder, lotion, perfume/cologne, aftershave, make-up, deodorant, or hair products after you have bathed. 5. NO nail citizen of [place]/acrylic on at least one finger. If you are having a hand, wrist or foot surgery then all nail [place] of [place] and artificial/acrylic nails must be removed from that hand or foot. 6. Avoid ALL Aspirin and non-steroidal anti-inflammatory drugs and certain vitamins (Ibuprofen, Advil, Aleve, Excedrin, Meloxicam, Celebrex, fish/krill oil, etc.) for 7 days prior to surgery as instructed by your surgeon and/or your prescribing doctor. Tylenol IS ALLOWED. If you are on Ticlid, Xarelto, Eliquis, Pradaxa, Plavix or Coumadin, please check with your prescribing doctor for instructions for when to stop them. 7. If you use an inhaler, continue to use it routinely. 8. Nothing to eat or drink (not even water, gum, mints, or hard candy!) AFTER midnight prior to your surgery. 9. Take only medications that you are instructed to on the morning of surgery with a TINY SIP OF WATER. 10. Choose a responsible adult that will be able to drive you home when you are discharged from your hospital stay for your surgery and can stay with you in your home for 24 hours after your procedure. You must NOT drive any vehicle or operate any machinery for 24 hours after surgery. 11. When you dress for your appointment, please wear loose fitting clothing that is appropriate to accommodate your surgical area procedure. BRING WITH YOU ANY DEVICES YOU MAY NEED: EDNA hose, ice machine, sling/swath, brace or special shoe, oversized zip-up or button up shirt, CPAP machine if staying overnight. 12. Do NOT wear jewelry, watches, or any piercings or metal for surgery- leave these valuables and money at home. 13. Do NOT wear contact lenses for surgery- glasses are okay if needed. 14. The anesthesiologist will talk with you the day of surgery and will ask you to sign a Consent Form. 15. Refrain from smoking or any type of tobacco use for at least 8 hours and marijuana for 24 hours prior to arrival for your surgery. 16. Notify your surgeon if you develop any illness before your surgery. 17. If you are staying overnight, please DO NOT BRING your home medications with you. 18. If you have any questions prior to surgery, please call the [facility] office at [phone], Mon.-Fri. 7 a.m.-3 p.m. Leave a voicemail if needed. Pre-Surgery Instructions: Medication Instructions atorvastatin (LIPITOR) 10 mg tablet Continue as prescribed, DO NOT take morning of procedure bisoprolol-hydroCHLOROthiazide (ZIAC) 10-6.25 mg per tablet Continue as prescribed, take morning of procedure levothyroxine (SYNTHROID, LEVOTHROID) 125 MCG tablet Continue as prescribed, take morning of procedure calcium carbonate (CALCIUM 500 ORAL) Continue as prescribed, DO NOT take morning of procedure NON FORMULARY Stop taking 1 week prior to procedure red yeast rice 600 mg capsule Stop taking 1 week prior to procedure turmeric/turmeric ext/pepr ext (turmeric-turmeric ext-pepper) 900-100-5 mg capsule Stop taking 1 week prior to procedure How to Avoid an Infection after Your Surgery Your doctor will give you specific instructions, but remember: -ALWAYS wash hands before caring for your incision. -No picking, scratching, or rubbing your incision. -No creams, lotion, powder, rubbing alcohol or hydrogen peroxide on the incision (can harm the tissue and slow healing). -Your doctor will give you specific instructions for what type of dressing you will need and how often it will need changed for infection purposes. -No tight clothing on incision. -Do not allow anyone to touch your incision unless they are cleaning, checking, or redressing it (be sure they wash their hands first). -No contact of your incision with pets; avoid sleeping with pets. -Take full course of antibiotic if prescribed for you after surgery- do not stop unless directed to by your physician. You may also be given an antibiotic prior to your surgery to help prevent surgical site infections. -Eat a healthy and varied diet including proteins, fruits, and vegetables to help promote wound healing and keep blood sugars under control if you are diabetic. -Smoking slows the healing process by decreasing the amount of oxygen in your blood that is needed for tissue healing. Try to avoid or stop smoking if possible. LOOK at your incision each morning and each night to check the progress of healing. Some soreness, numbness, itching and/or mild bruising around the incision is normal. Call your doctor if you notice any of the following: -Increased redness or hardening around the incision area. -Increased pain at the incision site. -Incision feels hot to the touch. -Swelling or pulling apart of the incision edges. -Yellow or green drainage or foul odor coming from the incision. -Bleeding from the incision (apply pressure as needed). -Fever higher than 101 degrees Fahrenheit for more than 4 hours. SHOWERING: Your doctor will give you specific instructions, but remember: -Be careful getting into and out of the shower. -Showers should be quick (5 minutes or less). -Use a clean washcloth to gently wash your incision with soap and water and pat the area dry with a clean towel. -No re-using wash cloths or towels; get a fresh one to clean your incision. -Do not soak in the bathtub, go swimming or use a hot tub ([place]), or perform activities where your incision is submerged in water or exposed to any fluids or substances until instructed by your doctor. -If your have the sticky strips (steri-strips) over the incision, it is OK to shower with them. Do not remove them. Let them fall off on their own. If you have a question, call your doctor s office. Go to the follow-up appointment with your doctor. documented in this encounter [facility] 04-01-2025 Telephone encounter Note Pathology showed benign seborrheic keratosis. [facility] 04-01-2025 Miscellaneous Notes Pathology showed benign seborrheic keratosis. documented in this encounter [facility] 03-28-2025 History of Presen t illness Narrative [...] Recommend routine PAT. documented in this encounter [facility] 02-26-2025 Telephone encounter Note Patient called to let us know she will have an appt with Dr. Browen's office for her clearance 03/28/25. [facility] 02-26-2025 Miscellaneous Notes Patient called to let us know she will have an appt with Dr. Browne's office for her clearance 03/28/25. documented in this encounter [facility] 12-14-2024 History of Presen t illness Narrative [...] for shave biopsy. documented in this encounter [facility] 04-23-2024 History of Presen t illness Narrative [...] Left GANGLION CYST EXCISION Right wrist HYSTERECTOMY SD ARTHROSCOPY KNEE DIAGNOSTIC W/WO SYNOVIAL BX SPX [...] nursing note reviewed. Exam conducted with a farm laborer present. Vitals: There is no height or [...] by Susana Corona LPN on behalf of: Robert Cortez DO documented in this encounter [facility] Evaluation note Diagnosis Well woman exam with routine gynecological exam Routine gynecological examination Breast cancer screening by mammogram Postmenopausal state Asymptomatic postmenopausal status (age-related) (natural) [facility]* Diagnosis Annual physical exam- Primary Routine general medical examination at a health care facility Essential hypertension (CMS/HCC) Unspecified essential hypertension Adult hypothyroidism (CMS/HCC) Unspecified hypothyroidism Neoplasm of uncertain behavior of skin Class 2 severe obesity due to excess calories with serious comorbidity and body mass index (BMI) of 37.0 to 37.9 in adult (CMS/HCC) [facility] Diagnosis Annual physical exam- Primary Routine general medical examination at a health care facility Essential hypertension Unspecified essential hypertension Adult hypothyroidism Unspecified hypothyroidism Neoplasm of uncertain behavior of skin Class 2 severe obesity due to excess calories with serious comorbidity and body mass index (BMI) of 37.0 to 37.9 in adult ([facility]) Preop examination- Primary Unspecified pre-operative examination Essential hypertension Unspecified essential hypertension Neoplasm of uncertain behavior of skin documented in this encounter [facility] HealthcareEvaluation noteNo assessment information availableSt. [facility] Work Phone: Evaluation note* Diagnosis Preop examination- Primary Unspecified pre-operative examination Hypertension, unspecified type Preop examination Unspecified pre-operative examination [facility] Diagnosis Annual physical exam- Primary Routine general medical examination at a health care facility Essential hypertension Unspecified essential hypertension Adult hypothyroidism Unspecified hypothyroidism Neoplasm of uncertain behavior of skin Class 2 severe obesity due to excess calories with serious comorbidity and body mass index (BMI) of 37.0 to 37.9 in adult ([facility]) Preop examination- Primary Unspecified pre-operative examination Essential hypertension Unspecified essential hypertension Neoplasm of uncertain behavior of skin Hallux valgus of right foot- Primary Right foot pain Pain in soft tissues of limb S/P foot surgery Other postprocedural status Instability of right ankle joint Difficulty walking Difficulty in walking documented in this encounter [facility] Healthcare[facility] note* Diagnosis Annual physical exam- Primary Routine general medical examination at a health care facility Essential hypertension Unspecified essential hypertension Adult hypothyroidism Unspecified hypothyroidism Neoplasm of uncertain behavior of skin Class 2 severe obesity due to excess calories with serious comorbidity and body mass index (BMI) of 37.0 to 37.9 in adult Preop examination- Primary Unspecified pre-operative examination Essential hypertension Unspecified essential hypertension Neoplasm of uncertain behavior of skin S/P foot surgery- Primary Other postprocedural status Right foot pain Pain in soft tissues of limb [facility] ([facility]arrative)No reason for referral information availableSt. [facility]'S [facility] Work Phone: Summary Purpose Family History No [...] content) DATE CREATED AUTHOR 02/05/2022 [facility] DATE CREATED AUTHOR AUTHOR'S ORGANIZ ATION 12/09/2022 [facility] DATE CREATED AUTHOR AUTHOR'S ORGANIZ ATION 04/02/2025 [facility] DATE CREATED AUTHOR AUTHOR'S ORGANIZ ATION 04/26/2025 [facility] DATE CREATED AUTHOR AUTHOR'S ORGANIZ ATION 05/13/2025 [facility] EPIC Reason for Visit (unrecogniz ed section and content) Reason Comments Well Women Visit Reason Comments Annual Exam WellnessMole on back Reason Onset Date Comments Advice Only 02/26/2025 Clearance Reason Comments Follow-up Shave biopsy, Surgic al clearance Reason Comments Consent Or Instructions Established karly ent presents today for consent and instructions for upcoming surgery. Reason Comments Post Op#1 Diane Stewart 64yo Est ablished patient presents for Post Op#1. DOS 04/25/2025. Care Teams (unrecognized sec tion and content) Hand Pleater Relationship Specialty Start Date End Date Johnnie Browne MD [address] [place] [phone] PCP - General Family Medicine 04/19/23 Hand Pleater Relationship Specialty Start Date End Date Johnnie Browne MD [address] [place] [address] PCP - General Family Medicine 04/19/23 Hand Pleater Relationship Specialty Start Date End Date Johnnie Browne MD [address] [place] [address] PCP - General Family Medicine 04/19/23 Hand Pleater Relationship Specialty Start Date End Date Johnnie Browne MD [address] [place] [address] PCP - General Family Medicine 04/19/23 Hand Pleater Relationship Specialty Start Date End Date Johnnie Browne MD [address] [place] [address] PCP - General Family Medicine 04/19/23 Hand Pleater Relationship Specialty Start Date End Date Johnnie Browne MD [address] [place] [address] PCP - General Family Medicine 04/19/23 Hand Pleater Relationship Specialty Start Date End Date Johnnie Browne MD [address] [place] [address] PCP - General Family Medicine 04/19/23 Johnnie Browne MD [address] [place] [address] PCP - [employer] 02/05/25 Hand Pleater Relationship Specialty Start Date End Date Johnnie Browne MD [address] [place] [address] PCP - General Family Medicine 04/19/23 Johnnie Browne MD [address] [place] [address] PCP - [employer] 02/05/25 Team Status: Inactive Member Role Status Dates Johnnie Browne MD Attending Provider Active Star t: March 28, 2025 End: March 28, 2025 Hand Pleater Relationship Specialty Start Date End Date Johnnie Browne MD [address] [place] [address] PCP - General Family Medicine 04/19/23 Johnnie Browne MD [address] [place] [address] PCP - [employer] 02/05/25 Hand Pleater Relationship Specialty Start Date End Date Johnnie Browne MD [address] [place] [address] PCP - General Family Medicine 04/19/23 Johnnie Browne MD [address] [place] [address] PCP - [employer] 02/05/25 Hand Pleater Relationship Specialty Start Date End Date Johnnie Browne MD [address] [place] [address] PCP - General Family Medicine 04/19/23 Johnnie Browne MD [address] [place] [address] PCP - [employer] 02/05/25 Hand Pleater Relationship Specialty Start Date End Date Johnnie Browne MD [address] [place] [address] PCP - General Family Medicine 04/19/23 Johnnie Browne MD [address] [place] [address] PCP - [employer] 02/05/25 Hand Pleater Relationship Specialty Start Date End Date Johnnie Browne MD [address] [place] [address] PCP - General Family Medicine 04/19/23 Johnnie Browne MD [address] [place] [address] PCP - [employer] 02/05/25 Goals (unrecognized section and content) Goals [...] BE BASED ON THE PRIMARY CLINICAL RECORDS. [facility]. provides no warranty or guarantee of the accuracy or completeness of information in this document.
== END 2025-05-16 13:28 | disposition home or self-care (01) ==
LOC: MAMMO 13:27
PROVIDERS: PCP Family Medicine; Visit Provider Family Medicine
DX: Z12.31 Encounter for screening mammogram for malignant neoplasm of breast (principal)
CPT/HCPCS: 77063; 77067

== ENCOUNTER 2025-06-12 15:11 | Outpatient (REF) | payer BC, SELFPAY ==
--- OUTSIDE RECORDS SUMMARY | 2025-06-07 08:00 | XMS_ITS | Encounter Summary ---
Author Organization [facility] Healthcare Address [address] [place] [address] Care Team Providers Care Cupola Patcher Helper Name Role Phone Johnnie Brewer MD Primary Care Provider [phone] Johnnie Brewer MD Unavailable Reason for Visit * ReasonCommentsPost Op #3Lisa Maurice 64yo Established patient presents for Post Op#3. Motrin as needed. DOS 04/25/2025. Encounter Details DateTypeDepartmentCare Team (Latest Contact Info)Kacaizwsctc64/31/2025 9:00 AM EDTOffice Visit [facility] [address] [place] [address] Jeancarlos Weber, DPM [address] [place], [place] [phone] S/P foot surgery (Primary Dx); Right foot pain Social History Tobacco UseTypesPacks/DayYears UsedDateSmoking Tobacco: NeverSmokeless Tobacco: NeverAlcohol UseStandard Drinks/WeekCommentsNot Currently0 (1 standard drink = 0.6 oz pure alcohol)Occasional alcohol useCommentsNoSex and Gender InformationValueDate RecordedSex Assigned at BirthNot on fileLegal SexFemale 10/20/2022 6:51 PM EDTGender IdentityNot on fileSexual OrientationNot on file documented as of this encounter Last Filed Vital Signs Vital SignReadingTime TakenCommentsBlood Pressure--Pulse--Temperature-- Respiratory Rate--Oxygen Saturation--Inhaled Oxygen Concentration--Duxlmu24.4 kg (217 lb)06/07/2025 9:03 AM SQXQkmqes182.6 cm (5' 4 )06/07/2025 9:03 AM EDTBody Mass Index37.251 9:03 AM EDTdocumented in this encounter Progress Notes * Jeancarlos Weber, DPM - 06/07/2025 9:00 AM EDT Images from the original note were not included. Subjective Patient ID: Diane Richards is a 64 y.o. female who presents for Post Op #3 (Diane Richards 64yo Established patient presents for Post Op#3. Motrin as needed. DOS 04/25/2025.). HPI Date of surgery 04/25/2025: Neel bunionectomy, right foot Patient presents to clinic postoperatively. Continuing to do well. Review of Systems Constitutional: Positive for activity [...] 1 TABLET BY MOUTH EVERY DAY, Disp: 90tablet, Rfl: 3 Cholecalciferol (EQL VITAMIN D3 GUMMIES PO), Take by mouth, Disp: , Rfl: levothyroxine (Synthroid, Levoxyl) 125 MCG tablet, Take 1 tablet (125 mcg) by mouth Daily, Disp: 90tablet, Rfl: 3 Misc Natural Products (BEET ROOT [...] Left GANGLION CYST EXCISION Right wrist HYSTERECTOMY [place] ARTHROSCOPY KNEE DIAGNOSTIC W/WO SYNOVIAL BX SPX Left 07/21/2016 TONSILLECTOMY TUBAL LIGATION 1985 Family History Family History Problem Relation Name Age of Onset Hypertension Mother Arthritis Mother COPD Mother Stroke Father Heart disease Maternal Grandmother Hypertension Sibling Objective Physical Exam Constitutional: Appearance: She is obese. Comments: Presents to clinic ambulating unassisted with a fracture boot on the right foot. Unaccompanied. HENT: Head: Normocephalic and atraumatic. Cardiovascular: Pulses: Normal pulses. Pulmonary: Effort: Pulmonary effort is normal. No respiratory distress. Abdominal: Palpations: There is no mass. Musculoskeletal: Cervical back: No rigidity. Comments: Right foot: Incision well coapted without drainage or cellulitis. Hallux rectus. Mild edema to the forefoot. No significant ecchymosis. Negative Homans test. No tenderness with compression of the calf. Skin: Capillary Refill: Capillary refill takes less than 2 seconds. Findings: No lesion or rash. Neurological: Mental Status: She is alert. Comments: No loss of protective sensation, gross sensation intact. Psychiatric: Mood and Affect: Mood normal. Behavior: Behavior normal. XR foot 3+ views right Imaging Result: AP, medial oblique, lateral views are nonweightbearing. Orthopedic implants intact without lucency.Hallux rectus. Resection of the medial eminence noted with osteotomy apparently healing well. Degenerative changes of the midfoot. Enthesophyte at the insertion of the Achilles tendon and mildly at the plantar fascia. Assessment/Plan ICD-10-CM 1. S/P foot surgery Z98.890 XR foot 3+ views right 2. Right foot pain M79.671 XR foot 3+ views right Patient examined and evaluated. Three views of the right foot taken in office and I discussed my findings. Osteotomy site appears to be healing well. At this time we will begin transitioning her out of the boot. Transition phase discussed in detail. She is cleared to return to work unrestricted on June 24. I would recommend compression socks. Elevate foot above heart level as much as necessary. I will follow up with her in 6 weeks with repeat radiographs of the right foot at that time. This note was created with the assistance of a speech recognition program. While intending to generate a timely document that accurately reflects the content of the visit, no guarantee can be provided that every grammatical or spelling mistake has been or will be identified or corrected. Thank you for your understanding. Jeancarlos Weber DPM documented in this encounter Plan of Treatment DateTypeDepartmentCare Team (Latest Contact Info)Pxvljlbiuvd18/12/2025 8:45 AM ESTOffice Visit [facility] [address] [place] [address] Jeancarlos Weber DPM [address] [place], [place] [phone] 06/16/2026 9:00 AM ESTProcedure Visit [facility] [address] [place] [address] Bailey Patel PA [address] [facility] [address] [place], [place] [phone] documented as of this encounter Procedures Procedure NamePriorityDate/TimeAssociated DiagnosisCommentsXR FOOT 3+ VIEWS ZXCDWGrczuvd38/31/2025 9:11 AM EDT S/P foot surgery Right foot pain documented in this encounter Results * XR foot 3+ views right (06/07/2025 9:11 AM EDT)Anatomical RegionLaterality ModalityLower Extremities, FootRightRadiographic ImagingSpecimen (Source) Anatomical Location / LateralityCollection Method / VolumeCollection Time Received Time Narrative 06/07/2025 10:06 AM EDT Imaging Result: AP, medial oblique, lateral views are nonweightbearing. ??Orthopedic implants intact without lucency. ??Hallux rectus. ??Resection of the medial eminence noted with osteotomy apparently healing well. ??Degenerative changes of the midfoot. ??Enthesophyte at the insertion of the Achilles tendon and mildly at the plantar fascia. Authorizing ProviderResult TypeResult StatusAnthmeghana Weber DPMIMG XR PROCEDURESFinal Result documented in this encounter Visit Diagnoses Diagnosis S/P foot surgery- Primary Other postprocedural status Right foot pain Pain in soft tissues of limb documented in this encounter Care Teams Team MemberRelationshipSpecialtyStart DateEnd Date Johnnie Brewer MD [address] [place] [address] [facility] - [facility] Johnnie Brewer MD [address] [place] [address] PCP - [facility]02/05/25documented as of this encounter
--- OUTSIDE RECORDS SUMMARY | 2025-06-07 08:15 | XMS_ITS | Encounter Summary ---
Author Organization [facility] Address [address] [place] [address] Care Team Providers Care Harness Racing Handicapper Name Role Phone Johnnie Brewer MD Primary Care Provider [phone] Johnnie Brewer MD Unavailable Encounter Details DateTypeDepartmentCare Team (Latest Contact Info)Umrcnqtgksk37/31/2025 9:15 AM EDTAncillary Procedure [facility] [address] [place] [address] Social History Tobacco UseTypesPacks/DayYears UsedDateSmoking Tobacco: NeverSmokeless Tobacco: NeverAlcohol UseStandard Drinks/WeekCommentsNot Currently0 (1 standard drink = 0.6 oz pure alcohol)Occasional alcohol useCommentsNoSex and Gender InformationValueDate RecordedSex Assigned at BirthNot on fileLegal SexFemale 10/20/2022 6:51 PM EDTGender IdentityNot on fileSexual OrientationNot on file documented as of this encounter Plan of Treatment DateTypeDepartmentCare Team (Latest Contact Info)Exkuavfzude31/12/2025 8:45 AM ESTOffice Visit [facility] [address] [place] [address] Jeancarlos Weber DPGraeme [address] [place] [phone] 06/16/2026 9:00 AM ESTProcedure Visit [facility] [address] [place] [address] [place] [address] Bailey Patel PA [address] [place] [address] [place] [address] documented as of this encounter Procedures Procedure NamePriorityDate/TimeAssociated DiagnosisCommentsXR FOOT 3+ VIEWS CGYHZChlxahg60/31/2025 9:11 AM EDT S/P foot surgery Right [...] Result documented in this encounter Visit Diagnoses Not on filedocumented in this encounter Care Teams Team MemberRelationshipSpecialtyStart DateEnd Date Johnnie Brewer MD [address] [place] [address] PCP - GeneralFamily Medicine04/19/23 Johnnie Brewer MD [address] [place] [address] PCP - Yecenia Young02/05/25documented as of this encounter
--- OUTSIDE RECORDS SUMMARY | 2025-06-12 10:00 | XMS_ITS | Encounter Summary ---
Author Organization [facility] Address [address] [place] [address] Care Team Providers Care Digital Imaging Technician Name Role Phone Johnnie Brewer MD Primary Care Provider [phone] Johnnie Brewer MD Unavailable Reason for Visit * ReasonCommentsWell Women Visit Encounter Details DateTypeDepartmentCare Team (Latest Contact Info)Vajfsfgfklq86/05/2025 10:00 AM ESTProcedure Visit [facility] [address] [place] [address] Bailey Patel PA [address] [place], [facility] Yeast infection (Primary Dx); Well woman exam with routine gynecological exam; Encounter for screening mammogram for malignant neoplasm of breast; Postmenopausal state; Vaginal itching; Vaginal discharge Social History Tobacco UseTypesPacks/DayYears UsedDateSmoking Tobacco: NeverSmokeless Tobacco: NeverAlcohol UseStandard Drinks/WeekCommentsNot Currently0 (1 standard drink = 0.6 oz pure alcohol)Occasional alcohol useCommentsNoSex and Gender InformationValueDate RecordedSex Assigned at BirthNot on fileLegal SexFemale 10/20/2022 6:51 PM EDTGender IdentityNot on fileSexual OrientationNot on file documented as of this encounter Last Filed Vital Signs Vital SignReadingTime TakenCommentsBlood Eupjpaex529/7206/12/2025 10:40 AM EST Pulse--Temperature--Respiratory Rate--Oxygen Saturation--Inhaled Oxygen Concentration--Xbxzaz73.5 kg (215 lb)06/12/2025 10:40 AM ESTHeight--Body Mass Index36.91 9:03 AM EDTdocumented in this encounter Progress Notes * Marisol Castro NP - 06/12/2025 10:00 AM EST Reason for Appointment: Patient ID: Diane Richards is a 64 y.o. female who presents for Well Women Visit Patient presents today for Annual Exam. MEDICATIONS Current Outpatient Medications Medication Instructions atorvastatin (LIPITOR) 10 mg, Oral, Daily bisoprolol-hydroCHLOROthiazide (Ziac) 10-6.25 MG tablet 1 tablet, Oral, Daily Cholecalciferol (EQL VITAMIN D3 GUMMIES PO) Take by mouth levothyroxine (SYNTHROID, LEVOXYL) 125 mcg, Oral, Daily Misc Natural Products (BEET ROOT PO) 1 tablet, Daily Multiple Vitamin (multivitamin) tablet 1 tablet, Daily Turmeric 5-1000 MG capsule 1 tablet, Daily ALLERGIES Allergies Allergen Reactions Morphine Other Reaction(s): FLUSHING / REDNESS Sulfa Antibiotics Rash PROBLEMS Active Ambulatory Problems Diagnosis Date Noted Osteopenia of left femoral neck 05/02/2024 Essential hypertension 10/22/2024 Adult hypothyroidism 10/22/2024 Annual physical exam 10/22/2024 Prediabetes 12/14/2024 Bilateral primary osteoarthritis of knee 12/14/2024 Neoplasm of uncertain behavior of skin 12/14/2024 Class 2 severe obesity due to excess calories with serious comorbidity and body mass index (BMI) of37.0 to 37.9 in adult 12/14/2024 Preop examination 03/28/2025 Resolved Ambulatory Problems Diagnosis Date Noted No [...] Use Smoking status: Never Smokeless tobacco: Never Vaping Use Vaping status: Never Used Substance Use Topics Alcohol use: Not Currently Comment: Occasional alcohol use Drug use: Never FAMILY HISTORY Family History Problem Relation Name Age of Onset Hypertension Mother Arthritis Mother COPD Mother Stroke Father Heart disease Maternal Grandmother Hypertension Sibling SURGICAL HISTORY Past Surgical History: Procedure Laterality Date BUNIONECTOMY Left GANGLION CYST EXCISION Right wrist HYSTERECTOMY VA ARTHROSCOPY KNEE DIAGNOSTIC W/WO SYNOVIAL BX SPX Left 07/21/2016 TONSILLECTOMY TUBAL LIGATION 1985 REVIEW OF SYSTEMS Review of Systems: Review of Systems Constitutional: Negative. HENT: Negative. Eyes: Negative. Respiratory: Negative. Cardiovascular: Negative. Gastrointestinal: Negative. Genitourinary: Positive for vaginal discharge. I think I have a yeast infection Musculoskeletal: Negative. Skin: Negative. Neurological: Negative. All other systems reviewed and are negative. Hematological: Negative. Endocrine: Negative. Allergic/Immunologic: Negative. OBJECTIVE Objective: Physical Exam Constitutional: Appearance: Normal appearance. She is well-developed. Genitourinary: Vulva normal. Breasts: Breasts are soft. Right: Normal. Left: Normal. Cardiovascular: Rate and Rhythm: Normal rate and regular rhythm. Pulmonary: Effort: Pulmonary effort is normal. Breath sounds: Normal breath sounds. Abdominal: General: Bowel sounds are normal. There [...] nursing note reviewed. Exam conducted with a land sales agent present. Vitals: Estimated body mass index is 36.9 kg/m?? as calculated from the following: Height as of 06/07/25: 5' 4 . Weight as of this encounter: 215 lb. BP: 140/72 No LMP recorded. Patient has had a hysterectomy. Assessment/Plan ICD-10-CM 1. Well woman exam with routine gynecological exam Z01.419 THIN PREP TIS PAP AND HR HPV DNA 2. Encounter for screening mammogram for malignant neoplasm of breast Z12.31 CANCELED: Bilateral screening mammogram CANCELED: Bilateral screening mammogram 3. Postmenopausal state Z78.0 Annual Exam: Patient presents today for an annual exam. Patient states she is doing well and has no complaints. Pap was obtained without difficulty. No orders of the defined types were placed in this encounter. Follow Up: Patient is to return in one year for annual unless needed otherwise. Documented by Marisol Castro NP on behalf of: JONNY Martinez documented in this encounter Plan of Treatment DateTypeDepartmentCare Team (Latest Contact Info)Mfiqayysstb74/12/2025 8:45 AM ESTOffice Visit [facility] [address] [place] [phone] Jeancarlos Weber, DPGraeme [address] [place] [address] 06/16/2026 9:00 AM ESTProcedure Visit [facility] [address] [place] [address] Bailey Patel PA [address] [place] [address] NameTypePriorityAssociated DiagnosesOrder ScheduleTHIN PREP TIS PAP AND HR HPV DNAPathology and CytologyRoutine Well woman exam with routine gynecological exam Ordered: 06/12/2025SURESWAB(R) ADVANCED VAGINITIS PLUS, TMAPathology and CytologyRoutine Vaginal itching Vaginal discharge Ordered: 06/12/2025HLAMYDIA TRACHOMATIS (GENITO/STI)LabRoutine Vaginal itching Vaginal discharge Ordered: 06/12/2025Neisseria gonorrhea DNA probe, directLabRoutine Vaginal itching Vaginal discharge Ordered: 06/12/2025documented as of this encounter Visit Diagnoses Diagnosis Yeast infection- Primary Well woman exam with routine gynecological exam Routine gynecological examination Encounter for screening mammogram for malignant neoplasm of breast Postmenopausal state Asymptomatic postmenopausal status (age-related) (natural) Vaginal itching Pruritus of genital organs Vaginal discharge Leukorrhea, not specified as infective documented in this encounter Care Teams Team MemberRelationshipSpecialtyStart DateEnd Date Johnnie Brewer MD [address] [place] [address] PCP - GeneralFamily Medicine04/19/23 Johnnie Brewer MD [address] [place] [address] PCP - Yecenia Young02/05/25documented as of this encounter
--- OUTSIDE RECORDS SUMMARY | 2025-06-12 15:14 | XMS_ITS | Encounter Summary ---
Author Organization [facility] Address [address] [place] [address] Care Team Providers Care Corporate Financial Analyst Name Role Phone Johnnie Brewer MD Primary Care Provider [phone] Johnnie Brewer MD Unavailable Encounter Details DateTypeDepartmentCare Team (Latest Contact Info)Hfhtxpwgaut42/31/2025Travel Social History Tobacco UseTypesPacks/DayYears UsedDateSmoking Tobacco: NeverSmokeless Tobacco: NeverAlcohol UseStandard Drinks/WeekCommentsNot Currently0 (1 standard drink = 0.6 oz pure alcohol)Occasional alcohol useCommentsNoSex and Gender InformationValueDate RecordedSex Assigned at BirthNot on fileLegal SexFemale 10/20/2022 6:51 PM EDTGender IdentityNot on fileSexual OrientationNot on file documented as of this encounter Plan of Treatment DateTypeDepartmentCare Team (Latest Contact Info)Skuxjwbtsaj96/12/2025 8:45 AM ESTOffice Visit [facility] [address] [place] [phone] Jeancarlos Weber, DPGraeme [address] [place], [place] [id number] 06/16/2026 9:00 AM ESTProcedure Visit YARA SANCHEZ [address] [facility] [place] [address] Bailey Patel PA [address] [facility] [place] [address] documented as of this encounter Visit Diagnoses Not on filedocumented in this encounter Care Teams Team MemberRelationshipSpecialtyStart DateEnd Date Johnnie Brewer MD [address] [place] [phone] PCP - GeneralFanely Medicine04/19/23 Johnnie Brewer MD [address] [place] [address] PCP - Yecenia [facility]02/05/25documented as of this encounter
--- OUTSIDE RECORDS SUMMARY | 2025-06-12 15:14 | XMS_ITS | Encounter Summary ---
Author Organization [facility] Address [address] [place] [address] Care Team Providers Care Weight Loss Sales Consultant Name Role Phone Johnnie Brewer MD Primary Care Provider [phone] Johnnie Brewer MD Unavailable Encounter Details DateTypeDepartmentCare Team (Latest Contact Info)Ybgcwylkrjk61/31/2025amboo flowsheet [facility] [address] [place] [address] Jeancarlos Weber DPM [address] [place], [place] [id number] Social History Tobacco UseTypesPacks/DayYears UsedDateSmoking Tobacco: NeverSmokeless Tobacco: NeverAlcohol UseStandard Drinks/WeekCommentsNot Currently0 (1 standard drink = 0.6 oz pure alcohol)Occasional alcohol useCommentsNoSex and Gender InformationValueDate RecordedSex Assigned at BirthNot on fileLegal SexFemale 10/20/2022 6:51 PM EDTGender IdentityNot on fileSexual OrientationNot on file documented as of this encounter Plan of Treatment DateTypeDepartmentCare Team (Latest Contact Info)Hfmghnjtqoo96/12/2025 8:45 AM ESTOffice Visit [facility] [address] [place] [address] Jeancarlos Weber DPM [address] [place], [place] [phone] 06/16/2026 9:00 AM ESTProcedure Visit [facility] [address] [place] [address] Bailey Patel PA [address] [place] [address] documented as of this encounter Visit Diagnoses Not on filedocumented in this encounter Care Teams Team MemberRelationshipSpecialtyStart DateEnd Date Johnnie Brewer MD [address] [place] [address] PCP - GeneralFamily Medicine04/19/23 Johnnie Brewer MD [address] [place] [address] PCP - Yecenia Young02/05/25documented as of this encounter
--- OUTSIDE RECORDS SUMMARY | 2025-06-12 15:14 | XMS_ITS | Clinical Summary ---
Author Organization [facility] Healthcare Address [address] [place] [address] Care Team Providers Care Laboratory Specialist Name Role Phone Johnnie Brewer MD Primary Care Provider [phone] Johnnie Brewer MD Unavailable Allergies Active AllergyReactionsCriticalityNoted GdfyPgkfpjecMtffrjwi25/11/2023 Other Reaction(s): FLUSHING / REDNESS Sulfa PhdqowtsxjzOwgzFiu90/11/2023 Medications MedicationSigDispense QuantityRefillsLast FilledStart DateEnd DateStatus Turmeric 5-1000 MG capsule Take 1 tablet by mouth DailyActive Misc Natural Products (BEET ROOT PO) Take 1 tablet by mouth DailyActive Multiple Vitamin (multivitamin) tablet Take 1 tablet by mouth DailyActive atorvastatin (Lipitor) 10 MG tablet Indications:Hyperlipidemia, unspecifiedTake 1 tablet (10 mg) by mouth Daily 90 tablet 4Active Cholecalciferol (EQL VITAMIN D3 GUMMIES PO) Take by mouthActive bisoprolol-hydroCHLOROthiazide (Ziac) 10-6.25 MG tablet Indications:Essential (primary) hypertension,Benign essential hypertensionTAKE 1 TABLET BY MOUTH EVERY DAY 90 tablet 5Active levothyroxine (Synthroid, Levoxyl) 125 MCG tablet Indications:Adult hypothyroidismTake 1 tablet (125 mcg) by mouth Daily 90 tablet 5Active fluconazole (Diflucan) 150 MG tablet Indications:Yeast infectionTake 1 tablet (150 mg) by mouth 1 (one) time for 1 dose This is a 1 time dose, take single tablet by mouth. 1 tablet 5Active Active Problems ProblemNoted DateDiagnosed DatePreop wrygavqrses38/21/2025 Assessment & Plan (03/28/2025 1:51 PM EDT): Able to proceed with upcoming surgery at low risk for complications. History of HTN but typically controlled with medication. No history of DM or CAD. Not having chest pain or SOB. Recommend routine PAT. Qcmgenpxadk74/09/2025ilateral primary osteoarthritis of knee12/14/2024Neoplasm of uncertain behavior of skin12/14/2024 Assessment & Plan (03/28/2025 1:52 PM EDT): C/o irritated mole and wants removed. Decided [...] bandage. Will notify of pathology when available Assessment & Plan (12/14/2024 2:59 PM EDT): Lesion likely SK but irritated and changing. Return for shave biopsy. Class 2 severe obesity due to excess calories with serious comorbidity and body mass index (BMI) of37.0 to 37.9 in adult12/14/2024 Assessment & Plan (12/14/2024 3:01 PM EDT): Weight loss indicated Essential jqckqamtwpbh73/17/2025 Assessment & Plan (03/28/2025 1:52 PM EDT): BP elevated today but typically controlled and monitor PRN. Adult qxtwthecnjijwe27/17/2025 Assessment & Plan (12/14/2024 2:59 PM EDT): Labs show elevated TSH and increase synthroid. Annual physical exam10/22/2024 Assessment & Plan (12/14/2024 2:59 PM EDT): Reviewed labs. Discussed proper diet and regular aerobic exercise. Need aerobic exercise 5-6 days aweek for 30 minutes at a time. Smaller portions and limit total calories. Colonoscopy every 10 years. Tetanus every 10 years. Advised not to smoke. Osteopenia of left femoral neck05/02/2024 Encounters DateTypeDepartmentCare XmkvUpoidztduly81/05/2025 10:00 AM ESTProcedure Visit [facility] [address] [place] [address] Bailey Patel PA Yeast infection (Primary Dx); Well woman exam with routine gynecological exam; Encounter for screening mammogram for malignant neoplasm of breast; Postmenopausal state; Vaginal itching; Vaginal tcvgnoyev46/05/2025amboo flowsheet [facility] [address] [place] [address] Bailey Patel PA 06/07/2025 9:15 AM EDTAncillary Procedure [facility] [address] [place] [address] 06/07/2025 9:00 AM EDTOffice Visit [facility] [address] [place] [address] Jeancarlos Weber DPM S/P foot surgery (Primary Dx); Right foot pain06/07/2025amboo flowsheet [facility] [address] [place] [address] Jeancarlos Weber DPM 06/07/20255171Dnvtgl24/15/2025 10:45 AM EDTOffice Visit [facility] [address] [place] [address] Jeancarlos Weber DPM S/P foot surgery (Primary Dx); Right foot pain05/22/2025bstract [facility] [address] [place] [address] Jeancarlos Weber DPM 05/22/2025amboo flowsheet [facility] [address] [place] [address] Jeancarlos Weber, ESTEFANY 05/22/20252180Bllcwl74/14/9494Upvazo74/09/2025Abstract [facility] [address] [place] [address] [place] [address] Robert Cortez DO 05/08/2025 11:05 AM EDTAncillary Procedure [facility] [address] [place] [address] 05/08/2025 10:45 AM EDTOffice Visit [facility] [address] [place] [address] Jeancarlos Weber DPM S/P foot surgery (Primary Dx); Right foot pain05/08/2025amboo flowsheet [facility] [address] [place] [address] Jeancarlos Weber, DPM 05/08/20257570Bsiesf06/30/6309Xkjhyp42/16/2025Abstract [facility] [address] [place] [address] Jeancarlos Weber, ESTEFANY 04/16/2025 2:15 PM EDTOffice Visit [facility] [address] [place] [address] Jeancarlos Weber, DPGraeme Hallux valgus of right foot (Primary Dx); Right foot pain; S/P foot surgery; Instability of right ankle joint; Difficulty ivayznq25/09/2025Bamboo flowsheet [facility] [address] [place] [address] Jeancarlos Weber, DPM 04/16/20258092Ibimch26/08/5833Ypvezo12/26/2025Orders Only [facility] [address] [place] [address] Ita Polo MD 04/01/2025Telephone [facility] [address] [place] [address] Johnnie Brewer MD 03/28/2025 1:00 PM EDTProcedure Visit [facility] [address] [place] [address] Johnnie Brewer MD Preop examination (Primary Dx); Essential hypertension ; Neoplasm of uncertain behavior of skin03/28/2025amboo flowsheet [facility] [address] [place] [address] Johnnie Brewer MD from Last 3 Months Family History Medical HistoryRelationNameCommentsStrokeFatherHeart diseaseMaternal Grandmother ArthritisMotherCOPDMotherHypertensionMotherHypertensionSiblingRelationNameStatus CommentsDaughter 1AliveDaughter 2AliveFatherDeceasedMaternal GrandmotherMother AliveSiblingSonAlive Social History Tobacco UseTypesPacks/DayYears UsedDateSmoking Tobacco: NeverSmokeless Tobacco: Never Tobacco Cessation:Counseling Given: Not Answered Alcohol UseStandard Drinks/WeekCommentsNot Currently0 (1 standard drink = 0.6 oz pure alcohol)Occasional alcohol useCommentsNoSex and Gender Information ValueDate RecordedSex Assigned at BirthNot on fileLegal BmzAqpsnz43/15/2023 6:51 PM EDTGender IdentityNot on fileSexual OrientationNot on file Last Filed Vital Signs Vital SignReadingTime TakenCommentsBlood Gljfxvvw578/7211 10:40 AM EST Pajcj444203/28/2025 1:13 PM YMJXebxqvstuqv02.9 ??C (96.6 ??F)03/28/2025 1:13 PM EDTRespiratory Suwa941703/28/2025 1:13 PM EDTOxygen Ekwvqitaqi03%03/28/2025 1:13 PM EDTInhaled Oxygen Concentration--Bkonlg02.5 kg (215 lb)06/12/2025 10:40 AM KZDCnmbxa803.6 cm (5' 4 )06/07/2025 9:03 AM EDTBody Mass Index36.91 9:03 AM EDT Plan of Treatment DateTypeDepartmentCare Team (Latest Contact Info)Yqedsricfcm89/12/2025 8:45 AM ESTOffice Visit [facility] [address] [place] [address] Jeancarlos Weber, DPM [address] [place], [place] [address] 06/16/2026 9:00 AM ESTProcedure Visit [facility] [address] [place] [address] Bailey Patel PA [address] [place] [address] Health MaintenanceDue DateLast DoneCommentsCT Oikyukidvmel14/06/1960FIT-DNA 1959FIT1959FOBT11/11/5392Uqowldxrplkaj01/06/1960Pneumococcal Vaccine: 65+ Years (1 of 1 - PCV)11/11/2009COVID-19 Vaccine ( - season) 2025Influenza Vaccine (#1)/08/20148909Znvfcrwjo51/23/2025 2234Vfggcnlbnoa97Colorectal Cancer Iljgkffgg91/04/2027 Procedures Procedure NamePriorityDate/TimeAssociated DiagnosisCommentsXR FOOT 3+ VIEWS YGWOPBoexcys56/31/2025 9:11 AM EDT S/P foot surgery Right foot pain XR FOOT 3+ VIEWS WGWAQJvzoaik85/01/2025 11:04 AM EDT S/P foot surgery Right foot pain SCANNED WLEMEemugaq42/26/2025 10:41 AM EDTMM TOMOSYNTHESIS SCREENING BI 04/30/2024 12:41 PM EDT from Last 3 Months or Most Recently Relevant to Health Maintenance Results * XR foot 3+ views right (06/07/2025 9:11 AM EDT) Only the most recent of2 resultswithin the time period is included. Anatomical RegionLateralityModalityLower Extremities, FootRightRadiographic ImagingSpecimen (Source)Anatomical Location / LateralityCollection Method / VolumeCollection TimeReceived Time Narrative 06/07/2025 10:06 AM EDT Imaging Result: AP, medial oblique, lateral views are nonweightbearing. ??Orthopedic implants intact without lucency. ??Hallux rectus. ??Resection of the medial eminence noted with osteotomy apparently healing well. ??Degenerative changes of the midfoot. ??Enthesophyte at the insertion of the Achilles tendon and mildly at the plantar fascia. Authorizing ProviderResult TypeResult StatusJeancarlos Weber DPMIMG XR PROCEDURESFinal Result * SCANNED LABS (04/02/2025 10:41 AM EDT) Narrative Authorizing ProviderResult TypeResult StatusIta PRYOR CHG PERFORMABLESFinal Result * MM TOMOSYNTHESIS SCREENING BI (04/30/2024 12:41 PM EDT)Anatomical Region LateralityModalityOtherSpecimen (Source)Anatomical Location / Laterality Collection Method / VolumeCollection TimeReceived Time04/30/2024 12:41 PM EDT Narrative 04/30/2024 12:42 PM EDT [facility] ?[address] ? [place] [address] ? Mammography Report ? Signed ? Patient: HAMMER,DIANE K ? MR#: [id number] ?? : 1960 ?Acct:[id number] ?? Age/Sex: 63 / F ?ADM Date: //24 ?? Loc: RAD ? Attending Dr: Robert Cortez D.O. ? Ordering Physician: Robert Cortez D.O. ?Results: ? Date of Service: 04/30/24 ?Follow Up: ? Procedure(s): MM tomosynthesis screening BI ?? Accession Number(s): [id number] ? cc: Robert Cortez D.O.; Johnnie Brewer M.D. ? Patient Name: ? DIANE STEWART ? MR#: [id number] ? : 1960 ? Exam Date: 04/30/2024 ?? Ordering Doctor: DR Robert Cortez . ? RADIOLOGY REPORT ? PROCEDURE: ? MM TOMOSYNTHESIS SCREENING BI ? COMPARISON: ? MM TOMOSYNTHESIS SCREENING BI, 04/01/2023. ??MG MAMM SCREEN 3D ?? ILDA CAD, 02/01/2022. ? INDICATIONS: ? SCREENING FOR MALIGNANT NEOPLASM OF BREASTS ? Calculator Name ? NCI Breast Cancer Risk Assessment Tool ?? 5 Year Breast Cancer Risk ? 1.40% ?? Lifetime Breast Cancer Risk ? 5.60% ?? Personal Breast Cancer ?No ?? Personal Ovarian Cancer ? No ?? Treatments ? None ?? Family Cancers ? None ? LOCATION: ? [facility] ? BREAST COMPOSITION: ? The breasts are heterogeneously dense,which may ?? obscure small masses. ? FINDINGS: ? DIAGNOSTIC CATEGORY 2--BENIGN FINDING. NO CHANGE FROM COMPARISON. ? Scattered benign-appearing calcifications are present. ??Scattered ?? benign-appearing lymph nodes are present. ? RIGHT BREAST: ??No significant suspicious finding. ? LEFT BREAST: ??No significant suspicious finding. ??Stable micro clip marker ?? upper outer quadrant, anterior breast. ? RECOMMENDATIONS: ? ROUTINE MAMMOGRAM AND CLINICAL EVALUATION IN 12 MONTHS. ? PLEASE NOTE: ??A NORMAL MAMMOGRAM DOES NOT EXCLUDE THE POSSIBILITY OF BREAST ?? CANCER. ??A CLINICALLY SUSPICIOUS PALPABLE LUMP SHOULD BE BIOPSIED. ? Dictated by: Drew Gaviria MD on 04/30/2024 at 12:40 ? Approved by: Drew Gaviria MD on 04/30/2024 at 12:41 ? Dictated By: ?Drew Gaviria M.D. ? Signed By: ?04/30/24 1242 ? DD/ 1241 ? TD/TT: ? Concrete Pointer: Procedure Note Radiology, Radiologist, MD - 04/30/2024 [place] [address] Mammography Report Signed Patient: DIANE STEWART KMR#: [id number] : 1960Acct:[id number] Age/Sex: 63 / FADM Date: 04/30/24 Loc: RAD Attending Dr: Robert Cortez D.O. Ordering Physician: Robert Cortez D.O.Results: Date of Service: 04/30/24Follow Up: Procedure(s): MM tomosynthesis screening BI Accession Number(s): [id number] cc: Robert Cortez D.O.; Johnnie Brewer M.D. Patient Name: DIANE STEWART MR#: [id number] : 1960 Exam Date: 04/30/2024 Ordering Doctor: DR Robert Cortez . RADIOLOGY REPORT PROCEDURE: MM TOMOSYNTHESIS SCREENING BI COMPARISON: MM TOMOSYNTHESIS SCREENING BI, 04/01/2023. MG MAMM UJTHUK7N ILDA CAD, 02/01/2022. INDICATIONS: SCREENING FOR MALIGNANT NEOPLASM OF BREASTS Calculator Name NCI Breast Cancer Risk Assessment Tool 5 Year Breast Cancer Risk 1.40% Lifetime Breast Cancer Risk 5.60% Personal Breast Cancer No Personal Ovarian Cancer No Treatments None Family Cancers None LOCATION: [facility] BREAST COMPOSITION: The breasts are heterogeneously dense,which may obscure small masses. FINDINGS: DIAGNOSTIC CATEGORY 2--BENIGN FINDING. NO CHANGE FROM COMPARISON. Scattered benign-appearing calcifications are present. Scattered benign-appearing lymph nodes are present. RIGHT BREAST: No significant suspicious finding. LEFT BREAST: No significant suspicious finding. Stable micro clip marker upper outer quadrant, anterior breast. RECOMMENDATIONS: ROUTINE MAMMOGRAM AND CLINICAL EVALUATION IN 12 MONTHS. PLEASE NOTE: A NORMAL MAMMOGRAM DOES NOT EXCLUDE THE POSSIBILITY OFBREAST CANCER. A CLINICALLY SUSPICIOUS PALPABLE LUMP SHOULD BE BIOPSIED. Dictated by: Drew Gaviria MD on 04/30/2024 at 12:40 Approved by: Drew Gaviria MD on 04/30/2024 at 12:41 Dictated By: Drew Gaviria M.D. Signed By:04/30/24 1242 DD/ 1241 TD/TT: Concrete Pointer: Authorizing ProviderResult TypeResult StatusGeneric External Data Provider CLINISYNC IMAGINGFinal Result from Last 3 Months or Most Recently Relevant to Health Maintenance Insurance Care Teams Team MemberRelationshipSpecialtyStart DateEnd Date Johnnie Brewer MD [address] [place] [address] PCP - [facility]04/19/23 Johnnie Brewer MD [address] [place] [address] PCP - Yecenia [facility]02/05/25
--- OUTSIDE RECORDS SUMMARY | 2025-06-12 15:14 | XMS_ITS | Encounter Summary ---
Author Organization [facility] Address [address] [facility] [place] [address] Care Team Providers Care Manager Coding Name Role Phone Johnnie Brewer MD Primary Care Provider [phone] Jonhnie Brewer MD Unavailable Encounter Details DateTypeDepartmentCare Team (Latest Contact Info)Tbtwyvredpi75/05/2025amboo flowsheet [facility] [address] [address] Bailey Patel PA [address] [place], [facility] Social History Tobacco UseTypesPacks/DayYears UsedDateSmoking Tobacco: NeverSmokeless Tobacco: NeverAlcohol UseStandard Drinks/WeekCommentsNot Currently0 (1 standard drink = 0.6 oz pure alcohol)Occasional alcohol useCommentsNoSex and Gender InformationValueDate RecordedSex Assigned at BirthNot on fileLegal SexFemale 10/20/2022 6:51 PM EDTGender IdentityNot on fileSexual OrientationNot on file documented as of this encounter Plan of Treatment DateTypeDepartmentCare Team (Latest Contact Info)Koyiulbemuk68/12/2025 8:45 AM ESTOffice Visit [facility] [address] [place] [address] Jeancarlos Weber, DPM [address] [place], [place] [phone] 06/16/2026 9:00 AM ESTProcedure Visit [facility] [address] [place] [address] Bailey Patel PA [address] [facility] [address] [address] documented as of this encounter Visit Diagnoses Not on filedocumented in this encounter Care Teams Team MemberRelationshipSpecialtyStart DateEnd Date Johnnie Brewer MD [address] [place] [address] PCP - GeneralFamily Medicine04/19/23 Johnnie Brewer MD [address] [place] [address] PCP - Yecenia Young02/05/25documented as of this encounter
--- OUTSIDE RECORDS SUMMARY | 2025-06-12 15:14 | XMS_ITS | Encounter Summary ---
Author Organization [facility] Address [address] [place] [address] Care Team Providers Care Bus Starter Name Role Phone Johnnie Brewer MD Primary Care Provider [phone] Johnnie Brewer MD Unavailable Encounter Details DateTypeDepartmentCare Team (Latest Contact Info)Iducznlqkvy37/24/2024Clinisync Result Encounter [facility] External Department Unsolicited Provider, Generic External Data Social History Tobacco UseTypesPacks/DayYears UsedDateSmoking Tobacco: NeverSmokeless Tobacco: NeverAlcohol UseStandard Drinks/WeekCommentsNot Currently0 (1 standard drink = 0.6 oz pure alcohol)Occasional alcohol useCommentsNoSex and Gender InformationValueDate RecordedSex Assigned at BirthNot on fileLegal SexFemale 10/20/2022 6:51 PM EDTGender IdentityNot on fileSexual OrientationNot on file documented as of this encounter Plan of Treatment DateTypeDepartmentCare Team (Latest Contact Info)Lmhddegtyqq89/12/2025 8:45 AM ESTOffice Visit [facility] [address] [place] [phone] Jeancarlos Weber DPM [address] [place], [place] [address] 06/16/2026 9:00 AM ESTProcedure Visit [facility] [address] [facility] [place] [address] Bailey Patel PA [address] [facility] [place] [address] documented as of this encounter Procedures Procedure NamePriorityDate/TimeAssociated DiagnosisCommentsXR DEXA AXIAL TXRSDZEJ18/24/2024 7:32 AM EDT documented in this encounter Results * XR DEXA AXIAL SKELETON (05/01/2024 7:32 AM EDT)Anatomical RegionLaterality ModalityOtherSpecimen (Source)Anatomical Location / LateralityCollection Method / VolumeCollection TimeReceived Time05/01/2024 7:32 AM EDT Narrative 05/01/2024 7:35 AM EDT [facility] ?[address] ? [place] [address] ?XRay Report ? Signed ? Patient: TERRYSHELLYA Candace ? MR#: [id number] ?? : 1960 ?Acct:[id number] ?? Age/Sex: 63 / F ?ADM Date: 04/30/24 ?? Loc: RAD ? Attending Dr: Domenico Cortez D.O. ? Ordering Physician: Domenico Cortez D.O. ?? Date of Service: 04/30/24 ?? Procedure(s): XR DEXA axial skeleton ?? Accession Number(s): [id number] ? cc: Domenico Cortez D.O.; Johnnie Brewer M.D. ? [facility] ? [facility] [address] ? [place] [address] ? Patient Name: ?? DIANE STEWART ? MRN: [id number] ? date: 1960 ?Sex: F ?? Assigned Patient Location: RAD ?? Current Patient Location: ? Accession/Order Number: [id number] ?? Exam Date: 04/30/2024 ??08:40 ?Report Date: 05/01/2024 ??07:32 ? At the request of: ?? DOMENICO ??RANI ? Procedure: ??XR DEXA axial skeleton ? EXAMINATION: XR DEXA axial skeleton ? HISTORY: POSTMENOPAUSAL STATE Z78.0 ? COMPARISON: DEXA bone densitometry 01/19/2021 ? TECHNIQUE: Dual-energy X-ray absorptiometry (DXA) was performed. ? FINDINGS: ?? SPINE ANALYSIS: ?? Average bone mineral density is 1.221 g/cm2. ?? T-score (standard deviation relative to young adult mean): 0.3 . ?? +6.1% change since prior study. ? HIP ANALYSIS: ?? Lowest bone mineral density is within the right femoral neck, 0.809 g/cm2. ?? T-score (standard deviation relative to young adult mean): -1.6 . ?? -4.7% change since prior study. ? XR/XR DEXA axial skeleton ?? IMPRESSION: ? World Health Organization Classification: Osteopenia - Moderate Fracture Risk ?? FRAX: Cannot calculate. ? Pharmacologic treatment recommendations ?? * No uniform recommendation applies to all patients. Management plans must be ?? individualized. ?? * Consider initiating pharmacologic treatment in postmenopausal women and men ?? >= 50 years of age who have the following: Primary fracture prevention: ?? * T-score <= - 2.5 at the femoral neck, total hip, lumbar spine, 33% radius (some uncertainty with existing data) by DXA. ?? * Low bone mass (osteopenia: T-score between - 1.0 and - 2.5) at the femoral ?? neck or total hip by DXA with a 10-year hip fracture risk >= 3% or a 10-year major osteoporosis-related fracture risk >= 20% (i.e., clinical vertebral, hip, ?? forearm, or proximal humerus) based on the US-adapted FRAXregistered model. ?? Secondary fracture prevention: ?? * Fracture of the hip or vertebra regardless of BMD [4, 5]. ?? * Fracture of proximal humerus, pelvis, or distal forearm in persons with low ?? bone mass (osteopenia: T-score between - 1.0 and - 2.5). The decision to treat ? should be individualized in persons with a fracture of the proximal humerus, ?? pelvis, or distal forearm who do not have osteopenia or low BMD [12, 13]. ?? Theresa MS, Ariel SL, Rajinder KL, Mathew EM, Thanh KG, AJ, Naif ?? ES. ?? The clinician's guide to prevention and treatment of osteoporosis. Osteoporos ?? Int. 2021;33(10):5253-0882. doi: 10.1007/g36439-690-85275-m. Ep2021 ? 28. Erratum in: Osteoporos Int. 2021Mar 04;: PMID: 52042057; PMCID: ?? [id number]. ? Electronically authenticated by: MOSES ??TREMAINE ?? Date: 05/01/2024 ??07:32 ? Dictated By: ?Moses Skinner M.D. ? Signed By: ?05/01/24734 ? DD/ 0732 ? TD/TT: ? Motor Coach Tour Operator: Procedure Note Radiology, Radiologist, MD - 05/01/2024 [place] [address] XRay Report Signed Patient: DIANE STEWART KMR#: [id number] : 1960Acct:[id number] Age/Sex: 63 / FADM Date: 04/30/24 Loc: RAD Attending Dr: Domenico Cortez D.O. Ordering Physician: Domenico Cortez D.O. Date of Service: 04/30/24 Procedure(s): XR DEXA axial skeleton Accession Number(s): [id number] cc: Domenico Cortez D.O.; Johnnie Brewer M.D. The [place] [id number] Patient Name: DIANE STEWART MRN: [id number] date: 1960 Sex: F Assigned Patient Location: [facility] Current Patient Location: Accession/Order Number: [id number] Exam Date: 04/30/2024 08:40 Report Date: 05/01/2024 07:32 At the request of: DOMENICO CORTEZ Procedure: XR DEXA axial skeleton EXAMINATION: XR DEXA axial skeleton HISTORY: POSTMENOPAUSAL STATE Z78.0 COMPARISON: DEXA bone densitometry 01/19/2021 TECHNIQUE: Dual-energy X-ray absorptiometry (DXA) was performed. FINDINGS: SPINE ANALYSIS: Average bone mineral density is 1.221 g/cm2. T-score (standard deviation relative to young adult mean): 0.3 . +6.1% change since prior study. HIP ANALYSIS: Lowest bone mineral density is within the right femoral neck, 0.809 g/cm2. T-score (standard deviation relative to young adult mean): -1.6 . -4.7% change since prior study. XR/XR DEXA axial skeleton IMPRESSION: World Health Organization Classification: Osteopenia - Moderate FractureRisk FRAX: Cannot calculate. Pharmacologic treatment recommendations * No uniform recommendation applies to all patients. Management plans mustbe individualized. * Consider initiating pharmacologic treatment in postmenopausal women andmen >= 50 years of age who have the following: Primary fracture prevention: * T-score <= - 2.5 at the femoral neck, total hip, lumbar spine, 33%radius (some uncertainty with existing data) by DXA. * Low bone mass (osteopenia: T-score between - 1.0 and - 2.5) at thefemoral neck or total hip by DXA with a 10-year hip fracture risk >= 3% or [id number] major osteoporosis-related fracture risk >= 20% (i.e., clinical vertebral, hip, forearm, or proximal humerus) based on the US-adapted FRAXregisteredmodel. Secondary fracture prevention: * Fracture of the hip or vertebra regardless of BMD [4, 5]. * Fracture of proximal humerus, pelvis, or distal forearm in persons withlow bone mass (osteopenia: T-score between - 1.0 and - 2.5). The decision totreat should be individualized in persons with a fracture of the proximalhumerus, pelvis, or distal forearm who do not have osteopenia or low BMD [12, 13]. Theresa MS, Ariel SL, Rajinder KL, Mathew EM, Thanh KG, AJ,Naif ES. The clinician's guide to prevention and treatment of osteoporosis.Osteoporos Int. 2021;33(10):3267-0321. doi: 10.1007/w06371-886-48190-s. Ep. Erratum in: Osteoporos Int. 2021Mar 04;: PMID: 25012089; PMCID: [id number]. Electronically authenticated by: MOSES SKINNER Date: 05/01/2024 07:32 Dictated By: Moses Skinner M.D. Signed By:05/01/24 0735 DD/ 0732 TD/TT: Motor Coach Tour Operator: Authorizing ProviderResult TypeResult StatusGeneric External Data Provider CLINISYNC IMAGINGFinal Result documented in this encounter Visit Diagnoses Not on filedocumented in this encounter Care Teams Team MemberRelationshipSpecialtyStart DateEnd Date Johnnie Brewer MD [address] [place] [phone] [facility] Johnnie Brewer MD [address] [place] [address] PCP - Yecenia Young02/05/25documented as of this encounter
--- OUTSIDE RECORDS SUMMARY | 2025-06-12 15:15 | XMS_ITS | Encounter Summary ---
Author Organization [facility] Address [address] [place] [address] Care Team Providers Care Slat Basket Maker Helper Name Role Phone Johnnie Brewer MD Primary Care Provider [phone] Johnnie Brewer MD Unavailable Encounter Details DateTypeDepartmentCare Team (Latest Contact Info)Pwskaxtkxjm37/23/2024Clinisync Result Encounter [facility] External Department Unsolicited Provider, [...] Plan of Treatment DateTypeDepartmentCare Team (Latest Contact Info)Laocnjynkvy03/12/2025 8:45 AM ESTOffice Visit [facility] [address] [place] [phone] Jeancarlos Weber DPM [address] [place], [place] [phone] 06/16/2026 9:00 AM ESTProcedure Visit [facility] [address] [facility] [address] Bailey Patel PA [address] [facility] [place] [address] documented as of this encounter Procedures Procedure NamePriorityDate/TimeAssociated DiagnosisCommentsMM TOMOSYNTHESIS SCREENING BI04/30/2024 12:41 PM EDT documented in this encounter Results * MM TOMOSYNTHESIS SCREENING BI (04/30/2024 12:41 PM EDT)Anatomical Region LateralityModalityOtherSpecimen (Source)Anatomical Location / Laterality Collection Method / VolumeCollection TimeReceived Time04/30/2024 12:41 PM EDT Narrative 04/30/2024 12:42 PM EDT [facility] ?[address] ? [place] [address] ? Mammography Report ? Signed ? Patient: TERRYDIANE Maria ? MR#: [id number] ?? : 1960 ?Acct:[id number] ?? Age/Sex: 63 / F ?ADM Date: 04/30/24 ?? Loc: RAD ? Attending Dr: Robert Cortez D.O. ? Ordering Physician: Robert Cortez D.O. ?Results: ? Date of Service: 04/30/24 ?Follow Up: ? Procedure(s): MM tomosynthesis screening BI ?? Accession Number(s): [id number] ? cc: Robert Cortez D.O.; Johnnie Brewer M.D. ? Patient Name: ? DIANE STEWART ? MR#: [id number] ? : 1960 ? Exam Date: 04/30/2024 [...] Cancers ? None ? LOCATION: ? [facility] ? BREAST COMPOSITION: ? The breasts are [...] SHOULD BE BIOPSIED. ? Dictated by: Drew Mead MD on 04/30/2024 at 12:40 ? Approved by: Drew Mead MD on 04/30/2024 at 12:41 ? Dictated By: ?Drew Mead M.D. ? Signed By: ?04/30/24 1242 ? DD/ 1241 ? TD/TT: ? Manager Of Supply Chain: Procedure Note Radiology, Radiologist, - 04/30/2024 [place] [address] Mammography Report Signed Patient: DIANE STEWART KMR#: [id number] : 1960Acct:[id number] Age/Sex: 63 / FADM Date: 04/30/24 Loc: RAD Attending Dr: Robert Cortez D.O. Ordering Physician: Robert Cortez D.O.Results: Date of Service: 04/30/24Follow Up: Procedure(s): MM tomosynthesis screening BI Accession Number(s): [id number] cc: Robert Cortez D.O.; Johnnie Brewer M.D. Patient Name: DIANE STEWART MR#: [id number] : 1960 Exam Date: 04/30/2024 Ordering Doctor: DR Robert Cortez . RADIOLOGY REPORT PROCEDURE: MM TOMOSYNTHESIS SCREENING BI COMPARISON: MM TOMOSYNTHESIS SCREENING BI, 04/01/2023. MG MAMM AHOMYS2M ILDA CAD, 02/01/2022. INDICATIONS: SCREENING FOR MALIGNANT NEOPLASM OF BREASTS Calculator Name NCI Breast Cancer Risk Assessment Tool 5 Year Breast Cancer Risk 1.40% Lifetime Breast Cancer Risk 5.60% Personal Breast Cancer No Personal Ovarian Cancer No Treatments None Family Cancers None LOCATION: [facility] BREAST COMPOSITION: The breasts are heterogeneously dense,which [...] LUMP SHOULD BE BIOPSIED. Dictated by: Drew Mead MD on 04/30/2024 at 12:40 Approved by: Drew Mead MD on 04/30/2024 at 12:41 Dictated By: Drew Mead M.D. Signed By:04/30/24 1242 DD/ 1241 TD/TT: Manager Of Supply Chain: Authorizing ProviderResult TypeResult StatusGeneric External Data Provider CLINISYNC IMAGINGFinal Result documented in this encounter Visit Diagnoses Not on filedocumented in this encounter Care Teams Team MemberRelationshipSpecialtyStart DateEnd Date Johnnie Brewer MD [address] [place] [address] [facility] - [facility]23 Johnnie Brewer MD [address] [place] [address] PCP - Yecenia [facility]02/05/25documented as of this encounter
--- OUTSIDE RECORDS SUMMARY | 2025-06-12 15:15 | XMS_ITS | Clinical Summary ---
Author Organization [facility] Address [id number] [address] [place] [address] Care Team Providers Care Tumble Tailstock Turret Lathe Operator Name Role Phone Johnnie Brewer MD Primary Care Provider Allergies Active AllergyReactionsCriticalityNoted OmukCaveshpvFunfqhah12/11/2023 Other Reaction(s): FLUSHING / REDNESS Sulfa (Sulfonamide Antibiotics)VhfmGse4204/18/2023 Medications MedicationSigDispense QuantityRefillsLast FilledStart DateEnd DateStatus atorvastatin (LIPITOR) 10 mg tablet Take 1 tablet (10 mg total) by mouth in the morning.4Active bisoprolol-hydroCHLOROthiazide (ZIAC) 10-6.25 mg per tablet Take 1 tablet by mouth in the morning.5Active levothyroxine (SYNTHROID, LEVOTHROID) 125 MCG tablet Take 1 tablet (125 mcg total) by mouth in the morning.5Active turmeric/turmeric ext/pepr ext (turmeric-turmeric ext-pepper) 900-100-5 mg capsule Take 1 tablet by mouth in the morning.Active calcium carbonate (CALCIUM 500 ORAL) Take 1 tablet by mouth in the morning.Active NON FORMULARY Take 2 each by mouth in the morning. Med Name: beet root, gummies.Active red yeast rice 600 mg capsule Take 2 capsules by mouth in the morning.Active Active Problems No known active problems Encounters DateTypeDepartmentCare SiadVqvourjjfag69/18/2025 7:30 AM EDT - 04/25/2025 8:30 AM EDTSurgery [facility] [address] [place] [address] Jeancarlos Weber, DPM BUNIONECTOMY FOOT JULIANA [[id number] (CPT??)]04/25/2025 7:30 AM EDTAnesthesia Event [facility] [address] [place] [address] Navid Orozco, DO 04/25/2025 6:08 AM EDT - 04/25/2025 9:54 AM EDTHospital Encounter [facility] [address] [place] [phone] Jeancarlos Weber, DPM S/P foot surgery, right (Primary Dx) Discharge Disposition: Home04/25/20250628Gicexj12/02/2025 9:40 AM EDT - 04/09/2025 11:59 PM EDTHospital Encounter [facility] - Cardiovascular [address] [place] [address] Drew Masterson MD Preop examination Discharge Disposition: Gregory04/09/2025 9:00 AM EDTProcedure visit [facility] - Pre Admit [address] [place] [phone] Preop examination (Primary Dx); Hypertension, unspecified type04/09/2025Travelfrom Last 3 Months Family History Medical HistoryRelationNameCommentsAtrial fibrillationBrotherMitral valve prolapseSisterRelationNameStatusCommentsBrotherSister Social History Tobacco UseTypesPacks/DayYears UsedDateSmoking Tobacco: NeverSmokeless Tobacco: Never Tobacco Cessation:Counseling Given: Not Answered Alcohol UseStandard Drinks/WeekCommentsNot Currently0 (1 standard drink = 0.6 oz pure alcohol)ChildcareAnswerDate XsoxvbfsPldmhrmfvCcajybs37/12/2019Employment AnswerDate TjggksmpXgcusacobxPemfyth44/12/2019Purpose - LifeAnswerDate Recorded Purpose and direction in uwbzAntjnfl79/11/2021CommentsNoSex and Gender InformationValueDate RecordedSex Assigned at BirthNot on fileLegal SexFemale 03/13/2015 11:53 AM EDTGender IdentityNot on fileSexual OrientationNot on file Last Filed Vital Signs Vital SignReadingTime TakenCommentsBlood Tyasgbka824/7609 9:30 AM EDT Zrqik2901/18/2025 9:30 AM ZNRVcymvtpjemx82.5 ??C (97.7 ??F)04/25/2025 9:13 AM EDTRespiratory Tbui055804/25/2025 9:30 AM EDTOxygen Puhsrscayr04%04/25/2025 9:30 AM EDTInhaled Oxygen Concentration--Zwweew63.3 kg (210 lb)04/25/2025 6:30 AM EDT Aaiztz621.6 cm (5' 4 )04/25/2025 6:30 AM EDTBody Mass Index36.05004/25/2025 6:30 AM EDT Plan of Treatment Health MaintenanceDue DateLast DoneCommentsDepression Kjhvnhlyq54/06/1972Adult BMI Follow Up Plan11/11/1977DTaP,Tdap and Td Vaccines (1 - Tdap)11/11/1978Zoster (Shingles) Vaccine (1 of 2)11/11/2009Fall Risk Enkuajyyk41/06/2025Influenza Uwmfeoy32, 05/30/2015, 05/08/2015dult BMI Hqwzrnnib22/18/2026 04/25/2025Tobacco Nvnexjzhl41RSV ( or age 60+ yrs) (1 - 1-dose 75+ series)11/11/2034 Medical Devices ImplantedTypeAreaManufacturerDevice IdentifierShelf Expiration DateModel / Serial / LotScrew Bn 16mm 3mm Cnn Mn-Mnstr St - Sna - [id number] Implanted:Qty: 1 on 04/25/2025 by [facility]ancarlos Weber DPM at [facility]wRight: FootPARAGON 28 INC08/08/[id number] / NA / NAExplantedTypeAreaManufacturerDevice IdentifierShelf Expiration DateModel / Serial / LotWire Fx Krsh 1.1mm 150mm 1 End Troc Tip Smth - Sna - [id number] Explanted:Qty: 2 on 04/25/2025 [facility] ImplantRight: FootPARAGON 28 INC08/08/2029 [id number] / NA / NA Procedures Procedure NamePriorityDate/TimeAssociated DiagnosisCommentsXR FOOT RT 2 VWS Dqmubmy3904/25/2025 8:29 AM EDT ANESTHESIA TVICDGOEIIHzuzqfc97/18/2025 7:36 AM EDT UT CORRJ HALLUX VALGUS W/SESMDC W/PROX PHLNX EKJARP2104/25/2025 7:32 AM EDT right hallux valgus Special Needs Zahl 29-mini monster screws UT CORRJ HALLUX VALGUS W/SESMDC W/DIST METAR RPCJCQ5904/25/2025 7:32 AM EDT right hallux valgus Special Needs Zahl 29-mini monster screws BASIC METABOLIC URDMEKuejvxi85/02/2025 9:46 AM EDT Preop examination Hypertension, unspecified type ECG 12-TQAXCdcgaqe21/02/2025 9:41 AM EDT Preop examination from Last 3 Months Results * X-ray foot right 2 views (04/25/2025 8:29 AM EDT)Anatomical RegionLaterality ModalityLower Extremities, MSK, FootRightRadio FluoroscopySpecimen (Source) Anatomical Location / LateralityCollection Method / VolumeCollection Time Received Time04/25/2025 2:30 PM EDT Narrative 04/25/2025 2:30 PM EDT XR FOOT RT 2 VWS IMPRESSION: Intra Op Intraoperative fluoroscopy provided. The reference air kerma was 0.39 mGy. Finalized by Ean Le MD on 04/25/2025 2:30 PM Procedure Note Ean Le MD - 04/25/2025 XR FOOT RT 2 VWS IMPRESSION: Intra Op Intraoperative fluoroscopy provided. The reference air kerma was 0.39 mGy. Finalized by Ean Le MD on 04/25/2025 2:30 PM Authorizing ProviderResult TypeResult StatusJeancarlos Weber DPMIMG DIAGNOSTIC IMAGING ORDERABLESFinal Result * UT AN ELECTIVE SUPRAGLOTTIC AIRWAY (04/25/2025 7:36 AM EDT) Ankita Campbell APRN-CRNA - 04/25/2025 7:36 AM EDT LEANDRA Puckett 04/25/2025 7:52 AM Airway Patient location during procedure: OR Urgency: Elective Date/Time: 04/25/2025 7:36 AM Airway not difficult IV In Situ: Peripheral General Information and Staff Service Provider: LEANDRA Puckett Placed by: ??LEANDRA Puckett Patient Identified, IV Checked, Risks and Benefits Discussed, Surgical Consent, Monitors and Equipment Checked, Pre-op Evaluation and Timeout Performed Fire Risk Assessment Score: 0 Consent for Emergent Airway (if performed for an anesthetic, see related documentation for consents) Risks and benefits: risks, benefits and alternatives were discussed Indications and Patient Condition Sedation level: Deep Preoxygenated: yesPatient position: Supine and Sniffing Mask difficulty assessment: Not Attempted Indications for airway management: Anesthesia Complications: No Complicating Factors: No Final Airway Details Final airway type: Supraglottic Airway Successful Airway: LMA and I GelOral SGA size: 4 Dentition Check Pre: See Pre-Evaluaton documentation Placement verified by: chest auscultation, capnography and symmetrical chest wall movement Number of other approaches attempted: 0 Number of attempts at approach: 1 Airway Brand: ??LMA and I Gel Authorizing ProviderResult TypeResult Rashad Orozco DOANESTHESIA ORDERABLESFinal Result * (ABNORMAL) Basic Metabolic Panel (04/09/2025 9:46 AM EDT)ComponentValueRef RangeTest MethodAnalysis TimePerformed AtPathologist AavxngtnaYJFOUR355549 - 146 mmol/L04/09/2025 2:12 PM [facility] LABORATORYPOTASSIUM 3.93.5 - 5.0 mmol/L04/09/2025 2:12 PM [facility] HNSPDNGU79148 - 109 mmol/L04/09/2025 2:12 PM [facility] LABORATORYCARBON XFEIXTL8207 - 32 mmol/L04/09/2025 2:12 PM [facility] LABORATORYANION GAP95 - 15 mmol/L04/09/2025 2:12 PM [facility] LABORATORYBLOOD UREA MPSZDKUE797 - 27 mg/dL04/09/2025 2:12 PM [facility] LABORATORYCREATININE0.750.40 - 1.00 mg/dL 04/09/2025 2:12 PM [facility] LABORATORYComment:METHOD TRACEABLE TO IDMS TKJDJTZRBVTWIHB338(H)65 - 99 mg/dL04/09/2025 2:12 PM EDT [facility] LABORATORYCALCIUM9.28.5 - 10.5 mg/dL04/09/2025 2:12 PM [facility]OR[facility]ORYEGFR Non-Race Pehkqnobj03>=60 ml/min/1.73sq.m004/09/2025 2:12 PM [facility] Comment: Reported eGFR is based on the CKD-EPI 2020 equation that does not use a race coefficient. Specimen (Source)Anatomical Location / LateralityCollection Method / Volume Collection TimeReceived TimeBloodVenous blood / UnknownVenipuncture / Unknown 04/09/2025 9:46 AM EDT04/09/2025 9:46 AM EDT Narrative Authorizing ProviderResult TypeResult StatusDademetrio Masterson MDLAB BLOOD ORDERABLESFinal ResultPerforming OrganizationAddressCity/State/ZIP CodePhone Number [facility] [address] [place] [address], * ECG 12 lead (04/09/2025 9:41 AM EDT)Specimen (Source)Anatomical Location / LateralityCollection Method / VolumeCollection TimeReceived Time04/09/2025 9:41 AM EDT Narrative [facility] - 04/10/2025 8:14 AM EDT Authorizing ProviderResult TypeResult StatusDademetrio Masterson MDECG ORDERABLES Final ResultPerforming OrganizationAddressCity/State/ZIP CodePhone Number [facility] from Last 3 Months Insurance Advance Directives TypeDate RecordedPatient RepresentativeExplanationDurable Power of Hand Spinner 04/25/2025 6:12 AM Care Teams Team MemberRelationshipSpecialtyStart DateEnd Date Johnnie Brewer MD [address] [place] [address] PCP - GeneralFamily Medicine04/17/25
--- OUTSIDE RECORDS SUMMARY | 2025-06-12 15:23 | XMS_ITS | CCD ---
Author Organization [facility] Care Team Providers Care Public Health Name Role Phone CHRISTOPHER, DR HADLEY Attending Unavailable KARASIK, DR HADLEY Consulting Unavailable ACHARYA, DR SARBJIT Patrick Primary Care Unavailable KARASIK, DR HADLEY Admitting Unavailable KARASIK, DR HADLEY Admitting Unavailable KARASIK, DR HADLEY Attending Unavailable KARASIK, DR AHDLEY Consulting Unavailable ACHARYA, DR SARBJIT Patrick Primary Care Unavailable [place], DR FLAKITA Conroy Consulting Unavailable Johnnie Browne MD Primary Care Provider [phone] Johnnie Browne MD Unavailable Johnnie Browne MD Attending Provider Johnnie Browne Attending Unavailable Johnnie Browne Admitting Unavailable Unavailable Primary Care Provider UnavailJohnnie Jones MD Primary Care Provider Johnnie Browne MD Unavailable MIRA, JEANCARLOS S Referring Unavailable FLAKITA SAWYER Attending Unavailable SILVERIOFLAKITA BALL Referring Unavailable FLAKITA SAWYER Referring Unavailable RUSHER, JEANCARLOS S Admitting Unavailable RUSHER, JAENCARLOS S Attending Unavailable RUSHER, JEANCARLOS S Referring Unavailable Johnnie Browne MD Primary Care Provider Johnnie Browne MD Unavailable RUSHER, JEANCARLOS S Attending Unavailable RUSHER, JEANCARLOS S Referring Unavailable JOHNNIE BROWNE Attending Unavailable JOHNNIE BROWNE Attending Unavailable RUSHER, JEANCARLOS S Attending Unavailable RUSHER, JEANCARLOS S Attending Unavailable RUSHER, JEANCARLOS S Referring Unavailable RUSHER, JEANCARLOS S Attending Unavailable RUSHER, JEANCARLOS S Attending Unavailable RUSHER, JEANCARLOS S Referring Unavailable Allergies Allergy ClassificationReported Allergen(s)Allergy TypeDate of OnsetReaction(s) Facility (2 sources)Morphine; Translations: [MORPHINE]Drug Kudkqqd18-70-9483Rqm [facility] Repository (20 sources)MorphineDrug Lrqvhmx81-65-3599[facility] Work Phone: (20 sources)Sulfonamides (Antibiotic)Drug Buaqisc20-04-3405Wukl[facility] (1 source)Sulfonamides (Antibiotic); Translations: [SULFA (SULFONAMIDE ANTIBIOTICS)]Propensity to adverse reactions to drug (disorder)04-18-2023 [facility] Rep[facility] Medications Current Medications MedicationDrug Class(es)DatesSig (Normalized)Sig (Original)atorvastatin 10 mg oral tablet (20 sources)HMG-CoA Reductase InhibitorStart: 29-42-2875lrkk 1 tablet by mouth once dailyatorvastatin (Lipitor) 10 MG tablet Indications: Hyperlipidemia, unspecified Take 1 tablet (10 mg) by mouth Daily 90 tablet 3 07/27/2024 Active Start: 04-16-2024 End: 70-24-1981spnx 1 tablet by mouth once daily at dinneratorvastatin (Lipitor) 10 MG tablet Indications: Hyperlipidemia, unspecified (CMS/HCC) TAKE 1 TABLET BY MOUTH EVERY DAY DINNER 90 tablet 3 04/16/2024 04/23/2024 Discontinuedbisoprolol fumarate 10 mg / hydroCHLOROthiazide 6.25 mg oral tablet (20 sources)Thiazide Diuretic, beta-Adrenergic BlockerStart: 24-32-9684uatf 1 tablet by mouth once dailybisoprolol-hydroCHLOROthiazide (Ziac) 10-6.25 MG tablet Indications: Essential (primary) hypertension , Benign essential hypertension TAKE 1 TABLET BY MOUTH EVERY DAY 90 tablet 3 12/03/2024 Active Start: 37-96-0018mgls 1 tablet by mouth once in the morningbisoprolol- hydroCHLOROthiazide (ZIAC) 10-6.25 mg per tablet Take 1 tablet by mouth in the morning. 12/03/2024 ActiveStart: 60-37-6759hidb 1 tablet by mouth once daily bisoprolol-hydroCHLOROthiazide (Ziac) 10-6.25 MG tablet Indications: Essential (primary) hypertension (CMS/HCC) , Benign essential hypertension (CMS/HCC) TAKE 1 TABLET BY MOUTH EVERY DAY 90 tablet 3 12/08/2023 ActiveCalcium Carbonate (1 source)take 1 tablet by mouth in the morningcalcium carbonate (CALCIUM 500 ORAL) Take 1 tablet by mouth in the morning. ActiveCholecalciferol (20 sources)Vitamin DCholecalciferol (EQL VITAMIN D3 GUMMIES PO) Take by mouth Activefluconazole 150 mg oral tablet (1 source)Azole AntifungalStart: 06-12-2025 End: 82-11-9534xwem 1 tablet by mouth once, then take 1 tablet by mouth once fluconazole (Diflucan) 150 MG tablet Indications: Yeast infection Take 1 tablet (150 mg) by mouth 1(one) time for 1 dose This is a 1 time dose, take single tablet by mouth. 1 tablet 1 06/12/2025 06/12/2025 Activelevothyroxine sodium 0.125 mg oral tablet (20 sources)l-ThyroxineStart: 57-91-5157uzhb 1 tablet by mouth once daily levothyroxine (Synthroid, Levoxyl) 125 MCG tablet Indications: Adult hypothyroidism Take 1 tablet (125 mcg) by mouth Daily 90 tablet 3 12/14/2024 ActiveStart: 08-05-2023 End: 66-00-1119lkji 1 tablet by mouth in the morninglevothyroxine (Synthroid, Levoxyl) 100 MCG tablet Indications: Adult hypothyroidism (CMS/HCC) TAKE 1 TABLET (100 MCG) BY MOUTH IN THE MORNING 90 tablet 3 07/09/2024 12/14/2024 Discontinued (Reorder)Misc Natural Products (BEET ROOT PO) (20 sources)take 1 tablet by mouth once dailyMisc Natural Products (BEET ROOT PO) Take 1 tablet by mouth Daily ActiveMultiple Vitamin (multivitamin) tablet (20 sources)take 1 tablet by mouth once dailyMultiple Vitamin (multivitamin) tablet Take 1 tablet by mouth Daily ActiveNON FORMULARY (1 source)take 2 doses by mouth in the morningNON FORMULARY Take 2 each by mouth in the morning. Med Name: beet root, gummies. Activered yeast rice 600 mg oral capsule (1 source)take 2 capsules by mouth in the morningred yeast rice 600 mg capsule Take 2 capsules by mouth in the morning. ActiveTurmeric extract (20 sources)take 1 tablet by mouth once dailyTurmeric 5-1000 MG capsule Take 1 tablet by mouth Daily Activeturmeric/turmeric ext/pepr ext (turmeric-turmeric ext-pepper) 900-100-5 mg capsule (1 source)take 1 tablet by mouth in the morningturmeric/turmeric ext/pepr ext (turmeric-turmeric ext-pepper) 900-100-5 mg capsule Take 1 tablet bymouth in the morning. Active Completed/Discontinued Medications MedicationDrug Class(es)DatesSig (Normalized)Sig (Original)Calcium Carbonate-Vit D-Min (CALCIUM 1200 PO) (6 sources) End: 81-66-8944Aiqdetd Carbonate-Vit D-Min (CALCIUM 1200 PO) Take 1,200 mg by mouth Daily 12/14/2024 DiscontinuedCalcium Carbonate-Vit D-Min (CALCIUM 1200 PO) Take 1,200 mg by mouth Daily ActivemetFORMIN hydrochloride 500 mg oral tablet (3 sources)Biguanide End: 21-37-8323aqbv 1 tablet by mouth once dailymetFORMIN (Glucophage) 500 MG tablet Take 500 mg by mouth 1 (one) time each day at the same time 04/23/2024 Discontinuedvitamin b12 0.1 mg oral tablet (3 sources)Vitamin B12 End: 92-63-2507nuxs 1 tablet by mouth once dailycyanocobalamin (Vitamin B-12) 100 MCG tablet Take 100 mcg by mouth Daily 12/14/2024 Discontinued Problems Active Problems Problem ClassificationProblemDateDocumented DateEpisodic/ChronicAcquired foot deformities (2 sources)Hallux valgus (acquired), right foot; Translations: [Hallux valgus (acquired)]47-96-9552MdzyxbvOgyffjbsa hypertension (20 sources)Essential hypertension; Translations: [Essential (primary) hypertension]Onset: 441299-69-7965PuitmcvSubnxbxoubbbx and screening for infectious disease (1 source)Encounter for screening for human papillomavirus (HPV); Translations: [ENC SCREENING HUMAN PAPILLOMAVIRUS]Onset: 31-95-3142NvyxlumhYbokmwi (1 source)Mycosis; Translations: [Candidiasis, unspecified]61-70-0078Wdaordwb Osteoarthritis (20 sources)Primary gonarthrosis, bilateral; Translations: [Bilateral primary osteoarthritis of knee]Onset: 925682-62-7957QbxxkktFkake connective tissue disease (8 sources)Pain in right foot; Translations: [Pain in right foot]04-16-2025 EpisodicOther female genital disorders (1 source)Pruritus of vagina; Translations: [Other specified noninflammatory disorders of vagina]32-54-1027AlhhocgiLjrnw female genital disorders (1 source)Vaginal discharge; Translations: [Other specified noninflammatory disorders of vagina]05-66-0846LlzxryxnOhwyi nervous system disorders (2 sources)Difficulty walking; Translations: [Difficulty in walking, not elsewhere classified]02-69-1051PiiqybzNlesm non-traumatic joint disorders (2 sources)Instability of joint of right ankle; Translations: [Other instability, right ankle]88-75-4338UqnqdlrgXdafa nutritional; endocrine; and metabolic disorders (20 sources)Severe obesity; Translations: [Class 2 severe obesity due to excess calories with serious comorbidity and body mass index (BMI) of 37.0 to 37.9 in adult ([facility])]Onset: 686186-44-1015XnztazoHvvjz screening for suspected conditions (not mental disorders or infectious disease) (11 sources)Encounter for screening mammogram for malignant neoplasm of breast; Translations: [Encounter for screening for malignant neoplasm of cervix]Onset: 95-26-4484VpzyvdfkPorxrkpv codes; unclassified (3 sources)Postmenopausal state; Translations: [Asymptomatic menopausal state] 23-16-8242RsslhvbnAtodvigc codes; unclassified (8 sources)History of operative procedure on foot; Translations: [Other specified postprocedural states]96-47-1831WmbchurkFysfxnhz codes; unclassified (1 source)Other specified postprocedural states; Translations: [Other specified postprocedural states]Onset: 72-87-5057ScjyuwpvTlzcsmq disorders (20 sources)Hypothyroidism; Translations: [Hypothyroidism, unspecified]Onset: 027773-05-7675UtwkauaNxtftxybovdx (1 source)Autogenerated ProblemOnset: 535157-94-5868Fayiavrwrmyn (1 source)right hallux valgusOnset: 04-25-2025 Past or Other Problems Problem ClassificationProblemDateDocumented DateEpisodic/ChronicDiabetes mellitus without complication (20 sources)Prediabetes; Translations: [Prediabetes]Onset: 190184-20-7034 EpisodicNeoplasms of unspecified nature or uncertain behavior (20 sources)Neoplasm of uncertain behavior of skin; Translations: [Neoplasm of uncertain behavior of skin]Onset: 574295-60-5035QzakxtgzSeopc bone disease and musculoskeletal deformities (20 sources)Osteopenia; Translations: [Other specified disorders of bone density and structure, left thigh]Onset: 549702-62-9410EdvzijzuNftuvmwzljdk (1 source)Preprocedural examination lyrz67-28-5921 Results Test NameValueInterpretationReference RangeFacilityXR Foot - right 3 Viewson 77-34-4629Aeckwse Result: AP, medial oblique, lateral views are nonweightbearing. Orthopedic implants intact without lucency. Hallux rectus. Resection of the medial eminence noted with osteotomy apparently healing well. Degenerative changes of the midfoot. Enthesophyte at the insertion of the Achilles tendon and mildly at the plantar fascia.[facility]Rad[facility] (narrative)[facility] HospitalXR Foot - right 3 Viewson 05-08-2025 Imaging Result: AP, medial oblique, lateral viewsAre nonweightbearing. Orthopedic implant across the 1st metatarsal osteotomy intact without lucency or back out. Hallux is rectus at the 1st MTP.[facility] the [facility] HospitalRad[facility] Study observation (narrative)[facility] HospitalECG 12 leadon 55-96-0324QKTZDBFZIYMPOX [facility]uffton HospitalBASIC METABOLIC PANELon 97-93-8251Lxmvv gap [Moles/Vol]9 mmol/LNormal5-15[facility] Medical CenterComment on above:Performed By: #### BMP #### [facility] ([facility]) [address] [place] [address] VIRCalcium [Mass/Vol]9.2 mg/dLNormal8.5-10.5Pro[facility] Hollywood Presbyterian Medical CenterComment on above:Performed By: #### BMP #### [facility] ([facility]) [address] [place] [address] VIRChloride [Moles/Vol]105 mmol/IGhtvxv14-250ZgiVatdtbDoctors Hospital At RenaissanceComment on above:Performed By: #### BMP #### [facility] ([facility]) [address] [place] [address] VIRCO2 [Moles/Vol]26 mmol/NZajwpi85-52OwcJxdzdy [facility]remont HospitalComment on above:Performed By: #### BMP #### [facility] ([facility]) [address] [place] [address] VIRCreatinine [Mass/Vol]0.75 mg/dLNormal0.40-1.00ProDoctors Hospital At RenaissanceComment on above:Result Comment: METHOD TRACEABLE TO IDMS STANDARDPerformed By: #### BMP #### [facility] ([facility]) [address] [place] [address] VIRGFR/1.73 sq M.predicted among non-blacks MDRD (S/P/Bld) [Vol rate/Area]88 mL/min/{1.73_m2}Normal>=60ProDoctors Hospital At RenaissanceComment on above:Result Comment: Reported eGFR is based on the CKD-EPI 2020 equation that does not use a race coefficient.Performed By: #### BMP #### [facility] ([facility]) [address] [place] [address] VIRGlucose [Mass/Vol]124 mg/jLRtjj61-32TgzOdyubzDoctors Hospital At RenaissanceComment on above:Performed By: #### BMP #### [facility] ([facility]) [address] [place] [address] VIRPotassium [Moles/Vol]3.9 mmol/LNormal3.5-5.0[facility] Regional Medical CenterComment on above:Performed By: #### BMP #### [facility] ([facility]) [address] [place] [address] VIRSodium [Moles/Vol]140 mmol/QCgaemy521-545EmpKdatjs [facility] HospitalComment on above:Performed By: #### BMP #### [facility] ([facility]) [address] [place] [address] VIRUrea nitrogen [Mass/Vol]19 mg/dLNormal5-27[facility] Regional Medical CenterComment on above:Performed By: #### BMP #### [facility] ([facility]) [address] [place] [address] VIRBasic Metabolic Panelon 22-85-1265Virum gap [Moles/Vol]9 mmol/L5 - 15 mmol/[facility] SystemCalcium [Mass/Vol]9.2 mg/dL8.5 - 10.5 mg/dLBlanchard Valley Health System Bluffton HospitalChloride [Moles/Vol]105 mmol/L98 - 109 mmol/L [facility] HospitalCO2 [Moles/Vol]26 mmol/L22 - 32 mmol/[facility] SystemCreatinine [Mass/Vol]0.75 mg/dL0.40 - 1.00 mg/dLBlanchard Valley Health System [facility] Hospital Comment on above:METHOD TRACEABLE TO [facility] STANDARDEGFR Non-Race Qeabdwagt[address] [place], [place] [address]Comment on above:Reported eGFR is based on the CKD-EPI 2020 equation that does not use a race coefficient. Glucose [Mass/Vol]124 mg/mYTlqf28 - 99 mg/dLBlanchard Valley Health System Bluff[facility] Hospital Interpretation and review of laboratory resultsAbnoformerly [facility] Potassium [Moles/Vol]3.9 mmol/L3.5 - 5.0 mmol/LPrSt. Francis Hospital Health SystemSodium [Moles/Vol]140 mmol/L134 - 146 mmol/[facility] Administration SystemUrea nitrogen [Mass/Vol]19 mg/dL5 - 27 mg/dLUPMC Magee-Womens HospitalLon 03-29-2025 Specimen: [id number] Received: 03/29/25 Status: HASMUKH Brown Num: [id number] Spec Type: Surgical Subm Dr: Johnnie Browne MD Tissues: A Skin-Other than Cyst, tag, debridement or plastic repair (RIGHT MID BACK) Procedures: HEAVEN, Gross/Micro L4 Age/ Patient Sex Location Account Attending Physician Diane Stewart 64/F LABELL [id number] Johnnie Browne MD SPEC NUM: [id number] RECD: 03/29/25 STATUS: HASMUKH BROWN NUM: [id number] RL: 03/29/25- [facility] DR: Johnnie Browne MD ENTERED: 03/29/[address]: SPEC TYPE: Surgical DEPT: [place] [facility] ENTERED BY: [id number] RECV BY: [id number] ORDERED: HE, Gross/Micro L4 ORDERED: HE, Gross/Micro L4 Pathological Diagnosis Skin lesion, right mid back, shave biopsy: - Hyperkeratotic seborrheic keratosis. Clinical Information Mole Gross Description Received in formalin labeled with the patients name and date of and right mid back mole is a montgomery-purple, finely nodular, 0.7 cm in greatest dimension polypoid- like portion of skin. The specimen is inked black at the apparent point of attachment, trisected, and entirely submitted in a single cassette. (1, ns, [id number] A) Main container is received without a source site; therefore, the office is called. A message is left on 03/29/2025 at 1327 to please call us back and verify the specimen source site- Microscopic Description Microscopic examination is performed. Specimen: [id number] Received: 03/29/25 Status: HASMUKH Kevin Num: [id number] Spec Type: Surgical Subm Dr: Johnnie Browne MD Tissues: A Skin-Other than Cyst, tag, debridement or plastic repair (RIGHT MID BACK) Procedures: Niki COLLADO/Tianna Olivera Patient: Diane Stewart [id number] (Continued) Specimen: [id number] Received: 03/29/25 (Continued) Signed (signature on file) Christ Jean Baptiste MD 04/01/25 1432 Specimen: [id number] Received: 03/29/25 Status: HASMUKH Brown Num: [id number] Spec Type: Surgical Subm Dr: Johnnie Browne MD Tissues: A Skin-Other than Cyst, tag, debridement or plastic repair (RIGHT MID BACK) Procedures: Niki COLLADO/Tianna Olivera Patient: Diane Stewart [id number] (Continued) Specimen: [id number] Received: 03/29/25 (Continued) CPT Codes 52341 Specimen: [id number] Received: 03/29/25 Status: HASMUKH Brown Num: [id number] Spec Type: Surgical Subm Dr: Johnnie Bronwe MD Tissues: A Skin-Other than Cyst, tag, debridement or plastic repair (RIGHT MID BACK) Procedures: Niki COLLADO/Tianna L4 Patient: Ariadna Stewartbobby Maria [id number] (Continued) Signed (signature on file) Christ Jean Baptiste MD 04/01/25 1432Normal [facility] Physician GroupXR DEXA AXIAL SKELETONon 37-09-6949[address] [address] XRay Report Signed Patient: DIANE STEWART MR#: [id number] : 1960 Acct:[id number] Age/Sex: 63 / F ADM Date: 04/30/24 Loc: RAD Attending Dr: Robert Cortez D.O. Ordering Physician: Robert Cortez D.O. Date of Service: 04/30/24 Procedure(s): XR DEXA axial skeleton Accession Number(s): [id number] cc: Robert Cortez D.O.; Johnnie Browne M.D. [place] [address] Patient Name: DIANE STEWART MRN: [id number] date: 1960 Sex: F Assigned Patient Location: RAD Current Patient Location: Accession/Order Number: [id number] Exam Date: 04/30/2024 08:40 Report Date: 05/01/2024 07:32 At the request of: ROBERT CORTEZ Procedure: XR DEXA axial skeleton EXAMINATION: [...] Organization Classification: Osteopenia - Moderate Fracture Risk FRAX: Cannot calculate. Pharmacologic treatment recommendations * No uniform recommendation applies to all patients. Management plans must be individualized. * Consider initiating pharmacologic treatment in postmenopausal women and men >= 50 years of age who have the following: Primary fracture prevention: * T-score <= - 2.5 at the femoral neck, total hip, lumbar spine, 33% radius (some uncertainty with existing data) by DXA. * Low bone mass (osteopenia: T-score between - 1.0 and - 2.5) at the femoral neck or total hip by DXA with a 10-year hip fracture risk >= 3% or a 10-year major osteoporosis-related fracture risk >= 20% (i.e., clinical vertebral, hip, forearm, or proximal humerus) based on the [place]-adapted FRAXregistered model. Secondary fracture prevention: * Fracture of the hip or vertebra regardless of BMD [4, 5]. * Fracture of proximal humerus, pelvis, or distal forearm in persons with low bone mass (osteopenia: T-score between - 1.0 and - 2.5). The decision to treat should be individualized in persons with a fracture of the proximal humerus, pelvis, or distal forearm who do not have osteopenia or low BMD [12, 13]. Theresa MS, Ariel SL, Rajinder KL, Mathew EM, Thanh KG, AJ, Naif ES. The clinician's guide to prevention and treatment of osteoporosis. Osteoporos Int. 2021;33(10):0645-4465. doi: 10.1007/u00579-861-00872-d. Epub 2021Dec 03. Erratum in: Osteoporos Int. 2021Mar 04;: PMID: 64904325; PMCID: EUZ6786098. Electronically authenticated by: IVONNE SKINNER Date: 05/01/2024 07:32 Dictated By: Ivonne Skinner M.D. Signed By: 05/01/2435 DD/ TD/TT: Pack Press Operator:TBHRadiology, Radiologist, - 05/01/[address] [address] XRay Report Signed Patient: DIANE STEWART MR#: [id number] : 1960 Acct:[id number] Age/Sex: 63 / F ADM Date: 04/30/24 Loc: RAD Attending Dr: Robert Cortez D.O. Ordering Physician: Robert Cortez D.O. Date of Service: 04/30/24 Procedure(s): XR DEXA axial skeleton Accession Number(s): [id number] cc: Robert Cortez D.O.; Johnnie Browne M.D. The [address] [address] Patient Name: DIANE STEWART MRN: [id number] date: 1960 Sex: F Assigned Patient Location: [facility] Current Patient Location: Accession/Order Number: [id number] Exam Date: 04/30/2024 08:40 Report Date: 05/01/2024 07:32 At the request of: ROBERT CORTEZ Procedure: XR DEXA axial skeleton EXAMINATION: [...] Organization Classification: Osteopenia - Moderate Fracture Risk FRAX: Cannot calculate. Pharmacologic treatment recommendations * No uniform recommendation applies to all patients. Management plans must be individualized. * Consider initiating pharmacologic treatment in postmenopausal women and men >= 50 years of age who have the following: Primary fracture prevention: * T-score <= - 2.5 at the femoral neck, total hip, lumbar spine, 33% radius (some uncertainty with existing data) by DXA. * Low bone mass (osteopenia: T-score between - 1.0 and - 2.5) at the femoral neck or total hip by DXA with a 10-year hip fracture risk >= 3% or a 10-year major osteoporosis-related fracture risk >= 20% (i.e., clinical vertebral, hip, forearm, or proximal humerus) based on the [place]-adapted FRAXregistered model. Secondary fracture prevention: * Fracture of the hip or vertebra regardless of BMD [4, 5]. * Fracture of proximal humerus, pelvis, or distal forearm in persons with low bone mass (osteopenia: T-score between - 1.0 and - 2.5). The decision to treat should be individualized in persons with a fracture of the proximal humerus, pelvis, or distal forearm who do not have osteopenia or low BMD [12, 13]. Theresa MS, Ariel SL, Rajinder KL, Mathew EM, Thanh KG, AJ, Naif ES. The clinician's guide to prevention and treatment of osteoporosis. Osteoporos Int. 2021;33(10):9133-8117. doi: 10.1007/g30347-292-92064-x. Epub 2021Dec 03. Erratum in: Osteoporos Int. 2021Mar 04;: PMID: 54043795; PMCID: [id number]. Electronically authenticated by: IVONNE SKINNER Date: 05/01/2024 07:32 Dictated By: Ivonne Skinner M.D. Signed By: 05/01/24734 DD/ 1 TD/TT: Pack Press Operator: [facility] HospitalRadiology Study observation (narrative)[facility] HospitalXR DEXA AXIAL SKELETONOrdered By: Radiologist Radiology on 56-53-9833Q[facility] Work Phone: IGP,APTIMA HPV,AGE GDLNon 31-11-2436GPR GDLN ACOG TESTINGNote.[facility] HealthcareComment on above:TESTS RESULT FLAG UNITS REF RANGE LAB Clinician Provided Cytology Information Source.............Vagina No. of containers..01 ThinPrep Vial Age Algo ACOG Susan... 30-65 01 FLAG LEGEND: L-Low Normal,H-High Normal,LL-Alert Low,HH-Alert High <-Panic Low,>-Panic High,A-Abnormal,AA-Critical Abnormal Performed at: 01 =[address] [address] Mari Cunningham MD, HPV APTIMANegativeNegativeNOMS HealthcareComment on above:This nucleic acid amplification test detects fourteen high- risk HPV types (16,18,31,33,35,39,45,51,52,56,58,59,66,68) without differentiation. Performed at: =[facility], [place] [id number] Starch Mangle Tender: Mari Cunningham MD, Phone: [phone] Performed at: [facility] [address] [place] [id number] [place] Tender: Abiel Boyer MD, Phone: [phone] IGP, APTIMA HPV, RFX 16/18,45Note.NOMS HealthcareComment on above:TESTS RESULT FLAG UNITS REF RANGE LAB DIAGNOSIS: 02 NEGATIVE FOR INTRAEPITHELIAL LESION OR MALIGNANCY. THIS SPECIMEN WAS RESCREENED PART OF OUR SENIOR DATABASE ADMINISTRATOR PROGRAM. Specimen adequacy: 02 Satisfactory for evaluation. No endocervical cells are present. This is consistent with a history of hysterectomy. Performed by: 02 Diane Lopez, Juvenile Correctional Officer ([facility]) QC reviewed by: 02 Ata Grimes Juvenile Correctional Officer ([facility]) . 02 Note: Note 03 The Pap [...] High,A-Abnormal,AA-Critical Abnormal Performed at: 02 [facility] [id number] [place] [id number] Abiel Boyer MD, 03 WB [facility] [address] [address] Mari Cunningham MD, SPATULA-ALONE [facility] TOMOSYNTHESIS SCREENING BIon 91-89-7158[place] [address] Mammography Report Signed Patient: DIANE STEWART MR#: [id number] : 1960 Acct:[id number] Age/Sex: 63 / F ADM Date: 04/30/24 Loc: RAD Attending Dr: Robert Cortez D.O. Ordering Physician: Robert Cortez D.O. Results: Date of Service: 04/30/24 Follow Up: Procedure(s): MM tomosynthesis screening BI Accession Number(s): [id number] cc: Robert Cortez D.O.; Johnnie Browne M.D. Patient Name: DIANE STEWART MR#: [id number] : 1960 Exam Date: 04/30/2024 Ordering Doctor: DR Robert Cortez . RADIOLOGY REPORT PROCEDURE: MM TOMOSYNTHESIS SCREENING BI COMPARISON: MM TOMOSYNTHESIS SCREENING BI, 04/01/2023. MG MAMM SCREEN 3D ILDA CAD, 02/01/2022. INDICATIONS: SCREENING FOR MALIGNANT NEOPLASM OF BREASTS Calculator Name [facility] Breast Cancer Risk Assessment Tool 5 Year Breast Cancer Risk 1.40% Lifetime Breast Cancer Risk 5.60% Personal Breast Cancer No Personal Ovarian Cancer No Treatments None Family Cancers None LOCATION: [facility] BREAST COMPOSITION: The breasts are heterogeneously [...] BIOPSIED. Dictated by: Flakita Mead MD on 04/30/2024 at 12:40 Approved by: Flakita Mead MD on 04/30/2024 at 12:41 Dictated By: Flakita Mead M.D. Signed By: 04/30/24 1242 DD/ 1241 TD/TT: Pack Press Operator:TBHRadiology, RadiologistMD - 04/30/2024 [place] [address] Mammography Report Signed Patient: DIANE STEWART MR#: [id number] : 1960 Acct:[id number] Age/Sex: 63 / F ADM Date: 04/30/24 Loc: RAD Attending Dr: Robert Cortez D.O. Ordering Physician: Robert Cortez D.O. Results: Date of Service: 04/30/24 Follow Up: Procedure(s): MM tomosynthesis screening BI Accession Number(s): [id number] cc: Robert Cortez D.O.; Johnnie Browne M.D. Patient Name: DIANE STEWART MR#: [id number] : 1960 Exam Date: 04/30/2024 Ordering Doctor: DR Robert Cortez . RADIOLOGY REPORT PROCEDURE: MM TOMOSYNTHESIS SCREENING BI COMPARISON: MM TOMOSYNTHESIS SCREENING BI, 04/01/2023. MG MAMM SCREEN 3D ILDA CAD, 02/01/2022. INDICATIONS: SCREENING FOR MALIGNANT NEOPLASM OF BREASTS Calculator Name NCI Breast Cancer Risk Assessment Tool 5 Year Breast Cancer Risk 1.40% Lifetime Breast Cancer Risk 5.60% Personal Breast Cancer No Personal Ovarian Cancer No Treatments None Family Cancers None LOCATION: [facility] BREAST COMPOSITION: The breasts are heterogeneously [...] BIOPSIED. Dictated by: Flakita Mead MD on 04/30/2024 at 12:40 Approved by: Flakita Mead MD on 04/30/2024 at 12:41 Dictated By: Flakita Mead M.D. Signed By: 04/30/24 1242 DD/ 1241 TD/TT: Pack Press Operator: [facility] HospitalRadiology Study observation (narrative)[facility] TOMOSYNTHESIS SCREENING BIOrdered By: Radiologist Radiology on 87-38-2988OF[facility] Work Phone: Lab Reportson 07-80-9245Kwo Reports [id number]:127NoAdena Fayette Medical CenterMG MAMM SCREEN 3D ILDA CADon 72-39-5655KP MAMM SCREEN 3D ILDA CADPatient: TERRY DIANE MariaArden Exam Date: 02/01/2022 : 1960 Gender:F Ordering : DR JOMAR WHITE . Admission #: [id number] Family : DR SARBJIT ACHARYA . Order #: [id number] CLICK HERE TO VIEW EXAM RADIOLOGY REPORT [...] Treatments None Family Cancers None LOCATION: [facility] BREAST COMPOSITION: Heterogeneously dense,which may obscure [...] by: Flakita Mead MD on 02/01/2022 at 10:14[facility] HospitalOG PANEL 2: 30 to 65on 01-28-2022..NormalThe [facility] HospitalCompine rest christian [facility] services on above:Result Comment: Performed at: WBPerformed By: #### [id number] #### [facility] [address] [place] [address] Dr. Kim Cameron Gdln ACOG Cnvnmiu65-34QkupcjPlbPomerene HospitalComment on above:Performed By: #### [id number] #### [facility] [address] [place] [address] Dr. Kim PérezDIAGNOSIS:CommentUniversity Hospitals Geauga Medical Center on above: Result Comment: NEGATIVE FOR INTRAEPITHELIAL LESION OR MALIGNANCY. Performed at: WBPerformed By: #### [id number] #### [facility] [address] [place] [address] Dr. Kim PérezHPV AptimaNegativeNormalNegativeHolzer HospitalCompine rest christian mental health services on above:Result Comment: This nucleic acid amplification test detects fourteen high-risk HPV types (16,18,31,33,35,39,45,51,52,56,58,59,66,68) without differentiation. Performed at: =GPerformed By: #### [id number] #### [facility] [address] [place] [address] Dr. Kim PérezMethodology:CommentUniversity Hospitals Geauga Medical Center on above: Result Comment: This liquid based ThinPrep(R) pap test was screened with the use of an image guided system. Performed at: WBPerformed By: #### [id number] #### [facility] [address] [place] [address] Dr. Kim PérezNote:CommentUniversity Hospitals Geauga Medical Center on above:Result Comment: The Pap smear is a screening test designed to aid in the detection of premalignant and malignant conditions of the uterine cervix. It is not a diagnostic procedure and should not be used as the sole means of detecting cervical cancer. Both false-positive and false-negative reports do occur. . Performed at: WBPerformed By: #### [id number] #### [place] [address] [address] Kim PérezPerformed by:CommentNoCleveland Clinic South Pointe Hospital on above: Result Comment: Ed Kelly, Juvenile Correctional Officer (ASCP) Performed at: WBPerformed By: #### [id number] #### [place] [address] Dr[address] Kim PérezSpecimen adequacy:CommentUniversity Hospitals Geauga Medical Center on above:Result Comment: Satisfactory for evaluation. No endocervical cells are present. This is consistent with a history of hysterectomy. Performed at: WBPerformed By: #### [id number] #### [facility] [address] [place] [address] Dr. Kim Pérez Vital Signs Date TimeVital SignValuePerforming DthaxxfykSiqkphlr34-69-3746 10:40-0500Body mass index (BMI) [Ratio]36.9 kg/m2Bailey FULLER Work Phone: [facility] HospitalCmwxidwsjp93-37-1950 10:40-0500Body fhuwdt49.52 kgBailey FULLER Work Phone: [facility] HospitalZkdcyqxviw20-36-1663 10:40-0500Diastolic blood gmeifzmo55 mm[Hg]Bailey FULLER Work Phone: [facility] HospitalBqpglpooew82-56-0713 10:40-0500Systolic blood wmrlogcw687 mm[Hg]Bailey FULLER Work Phone: [facility] HospitalTakhrlfsbc45-13-0255 09:03-0400Body kpzupj629.6 cmAnthony Rusher DPM Work Phone: [phone] [place], [place] [address]Zxyhzffyom91-77-5619 09:03-0400Body mass index (BMI) [Ratio]37.25 kg/i1Hpfbubi Rusher DPM Work Phone: [phone]10-31-2025 09:03-0400Body .43 kgAnthony Rusher DPM Work Phone: [phone])[address] [place], [place] 5592310-15-2025 10:50-0400Body polcfk450.6 cmAnthony Rusher DPM Work Phone: [phone]10-15-2025 10:50-0400Body mass index (BMI) [Ratio]37.25 kg/r7Otkxzrn Rusher DPM Work Phone: [phone])[address] [place], [place] 5592310-15-2025 10:50-0400Body kyhvwl66.43 kgAnthony Rusher DPM Work Phone: [phone])[address] [place], [place] 5592310-01-2025 10:41-0400Body .6 cmAnthony Rusher DPM Work Phone: [phone] [place], [place] 5592310-01-2025 10:41-0400Body mass index (BMI) [Ratio]37.25 kg/p9Shsladk Rusher DPM Work Phone: 1([phone])[address] [place], [place] 5592310-01-2025 10:41-0400Body totmel22.43 kgAnthony Rusher DPM Work Phone: 1(632)[address] [place], [place] 5592309-09-2025 14:36-0400Body jszeie630.6 cmAnthony Rusher DPM Work Phone: [phone] [place], [place] 5592309-09-2025 14:36-0400Body mass index (BMI) [Ratio]37.25 kg/s3ZomkqzpJeancarlos Weber DPM Work Phone: [facility] HospitalXhrsnywdhd45-93-6285 14:36-0400Body uecrqi32.43 kgJeancarlos Weber DPM Work Phone: [facility] HospitalPuqjmeqldw00-44-0269 09:31-0400Body mjvczu971.[address]09-02-2025 09:31-0400Body mass index (BMI) [Ratio] 36.05 kg/m[address]09-02-2025 09:31-0400Body puwizp98.[address]08-21-2025 13:13-0400Body fsawkp779.6 cmJohnnie Browne MD Work Phone: [facility] HospitalHoyshkrycb22-32-0764 13:13-0400Body mass index (BMI) [Ratio]37.25 kg/m2Johnnie Browne MD Work Phone: [facility] HospitalYbgvyefelp46-60-3003 13:13-0400Body temperature 96.6 [degF]Johnnie Browne MD Work Phone: [facility] HospitalCndjeoijex41-97-6238 13:13-0400Body kvyaeg80.43 kgJohnnie Browne MD Work Phone: [facility] HospitalRzdezdvzvk45-77-3389 13:13-0400Diastolic blood myyqmgsc89 mm[Hg]Johnnie Browne MD Work Phone: [facility] HospitalZimxnlozoa55-88-1454 13:13-0400Heart rate71 /min Johnnie Browne MD Work Phone: [place] [address]Izhzetcfci13-86-1306 13:13-0400Respiratory rate20 /minJohnnie Browne MD Work Phone: [place] [address]Rhdjquekkn02-30-9522 13:13-7016NnH8% (BldA) [Mass fraction]94 %Johnnie Browne MD Work Phone: [facility] HospitalCxvzcrmzdh92-04-8168 13:13-0400Systolic blood eceohymd344 mm[Hg]Johnnie Browne MD Work Phone: [facility] HospitalHyrvxwmbvj66-43-7524 11:29-0400Body iyhcxa156.6 cmJohnnie Browne MD Work Phone: [facility] HospitalAkmvgdkuhi74-96-6940 11:29-0400Body mass index (BMI) [Ratio]37.76 kg/m2Johnnie Browne MD Work Phone: [facility] HospitalOnhicjyoal97-63-2932 11:29-0400Body temperature 97.11 [degF]Johnnie Browne MD Work Phone: [facility] HospitalFmkkppesgr85-66-5729 11:29-0400Body obnpwc00.79 kgJohnnie Browne MD Work Phone: [facility] HospitalHwadrkcwqa74-89-8407 11:29-0400Diastolic blood gpxtvsuq38 mm[Hg]Johnnie Browne MD Work Phone: [facility] HospitalCbvcbsmlqs99-42-3257 11:29-0400Heart rate69 /min Johnnie Browne MD Work Phone: [facility] HospitalEiaglwqtsv13-98-7637 11:29-0400Respiratory rate20 /minJohnnie Browne MD Work Phone: [facility] HospitalVzokydvbvy39-97-3500 11:29-6928PiY7% (BldA) [Mass fraction]96 %Johnnie Browne MD Work Phone: [facility] HospitalUqnbndsvkm81-03-6590 11:29-0400Systolic blood hfixyeiw314 mm[Hg]Johnnie Browne MD Work Phone: [facility] HospitalCcexvgmlcj49-15-9592 15:24-0400Body .03 kgCorey Diego DO Work Phone: NOOzarks [facility] HospitalBntmlkypfb00-27-0893 15:24-0400Diastolic blood ajvfiqvb36 mm[Hg]Robert Deigo DO Work Phone: noOzarks Community HospitalWquppxiffm25-38-6756 15:24-0400Systolic blood iyxvevyd545 mm[Hg]Robert Diego DO Work Phone: [facility] Encounters Encounter DateEncounter TypeCare ProviderFacilityStart: 06-12-2025 End: 13-82-4424Igretuh encounter procedureAmy Jorge FULLER Work Phone: [facility] Work Phone: Start: 06-12-2025 End: 79-88-4663Kpbfaxli preventive med est patient 65yrs& olderBailey FULLER Work Phone: [facility] Gayathri OBGYNComment on above:Yeast infection (Primary Dx); Well woman exam with routine gynecological exam; Encounter for screening mammogram for malignant neoplasm of breast; Postmenopausal state; Vaginal itching; Vaginal dischargeStart: 06-07-2025 End: 56-72-0055Syhuen flowsheetAnthony S Rusher DPM Work Phone: noVT [facility] PodiatryStart: 06-07-2025 End: 98-28-1442Kswvnt flowsheetAnthony S Rusher DPM Work Phone: noVT [facility] PodiatryStart: 06-07-2025 End: 43-44-7122Xcebff follow up visit related to original pxAnthony S Rusher DPM Work Phone: [facility] PodiatryComment on above:S/P foot surgery (Primary Dx); Right foot painStart: 06-07-2025 End: 76-85-8557susddyyanyLSGHFXE S RUSHERNot AvailableStart: 05-22-2025 End: 34-63-2617Nocbno flowsheetAnthony S Rusher DPM Work Phone: noVT [facility] PodiatryStart: 05-22-2025 End: 29-69-4875Minjxg flowsheetAnthony S Rusher DPM Work Phone: noextraTKTNorlina PodiatryStart: 05-22-2025 End: 00-18-3937znqihylynuNTPXFOY S RUSHERNot AvailableStart: 05-22-2025 End: 00-89-1868Qfmqig follow up visit related to original pxAnthony S Rusher DPM Work Phone: noWin[facility] PodiatryComment on above:S/P foot surgery (Primary Dx); Right foot painStart: 05-08-2025 End: 37-90-3350Echhzs flowsAri Weber DPM Work Phone: noWinnebago [facility] Services PodiatryStart: 05-08-2025 End: 87-60-7858Bcdtix flowsAri Weber DPM Work Phone: noWinnebago [facility] Services PodiatryStart: 05-08-2025 End: 07-93-3562Prsqoq follow up visit related to original Pily Weber DPM Work Phone: noWinnebago [facility] Services PodiatryComment on above:S/P foot surgery (Primary Dx); Right foot painStart: 05-08-2025 End: 43-45-7503ovjxgxkxkhIKGIBKC S RUSHERNot AvailableStart: 04-25-2025 End: 41-21-4181Xjztdhxqjt and management of inpatientJEANCARLOS Gardiner JEHERRiverside Methodist Hospitaltart: 04-16-2025 End: 27-58-3848Rmucrc outpatient visit 25 minutesAnthmeghana Weber DPM Work Phone: [facility] PodiatryComment on above:Hallux valgus of right foot (Primary Dx); Right foot pain; S/P foot surgery; Instability of right ankle joint; Difficulty walkingStart: 04-16-2025 End: 09-11-5682joibzvqumxPGRNQDX S RUSHERNot AvailableStart: 04-16-2025 End: 68-11-8412Cnctbk flowsAri Weber DPM Work Phone: noWinnebago [facility] Services PodiatryStart: 04-16-2025 End: 08-51-4425Gkdttq flowsforrestAnthmeghana Wootenher DPM Work Phone: noWinnebago [facility] Services PodiatryStart: 04-09-2025 End: 11-38-9845yrkdwyxlrwMVNDK M SOMMERSRiverside Methodist Hospitaltart: 51-62-2576Zsgrvyqaz for other preprocedural examinationANTHMEGHANA WEBERRiverside Methodist Hospitaltart: 04-09-2025 End: 73-11-3915Lonpecy encounter procedureMetrohealth Main [facility] Pre-Admission Testing [address] [place] [place] [address] - Pre AdmitComment on above:Preop examination (Primary Dx); Hypertension, unspecified typeStart: 04-09-2025 End: 57-92-6848Dntbcddkoldlr examination done[address] Streettart: 04-01-2025 End: 71-37-7663Mmaahastr encounterJohnnie Browne MD Work Phone: [facility] CWM FMStart: 03-28-2025 End: 20-02-4330Yuenln flowsFer Browne MD Work Phone: [facility] CWM FMStart: 03-28-2025 End: 61-37-4669Iwxmdr flowsFer Browne MD Work Phone: NOBQ CWM FMStart: 03-28-2025 End: 90-76-4249Ztbnwbqe ReferredJohnnie Browne MD-LAB [facility] Start: 03-28-2025 End: 27-05-5502Ixqvgr outpatient visit 15 minutesJohnnie Browne MD Work Phone: [facility] CWM FMComment on above:Preop examination (Primary Dx); Essential hypertension ; Neoplasm of uncertain behavior of skinStart: 03-28-2025 End: 14-42-3553Sfmeqcahtqosi examination doneJohnnie Browne MD Work Phone: [facility] Work Phone: Start: 03-28-2025 End: 77-95-4156lwnnkldphyPdxt [facility] Work Phone: Start: 02-26-2025 End: 39-16-8002Sqopjvdof encounterAnthmeghana Weber DPM Work Phone: [facility] PODIATRYComment on above:Advice Only (Clearance )Start: 12-14-2024 End: 48-01-9803Zjgvmo flowsheetJohnnie Browne MD Work Phone: [facility] CWM FMStart: 12-14-2024 End: 96-23-3158Zdnjtr flowsFer Browne MD Work Phone: [facility] CWM FMStart: 12-14-2024 End: 12-79-4713Pbunymp encounter procedureJohnnie Browne MD Work Phone: [facility] Work Phone: Start: 12-14-2024 End: 62-98-0711Rczzimnk preventive med est patient 65yrs& olderJohnnie Browne MD Work Phone: [facility] CWM FMComment on above:Annual physical exam (Primary Dx); Essential hypertension (CMS/HCC); Adult hypothyroidism (CMS/HCC); Neoplasm of uncertain behavior of skin; Class 2 severe obesity due to excess calories with serious comorbidity and body mass index (BMI) of37.0 to 37.9 in adult (CMS/HCC)Start: 12-14-2024 End: 37-52-1817nlhlwkjshhNTZQ NADERERNot AvailableStart: 00-82-0679Oifrcpq encounter procedureJohnnie Browne MD Work Phone: [facility] HealthcareStart: 10-22-2024 End: 91-74-3298mbpnrafjitWQYGBLR S RUSHERNot AvailableStart: 05-01-2024 End: 78-09-7934Tqolcqxen Result EncounterGeneric External Data ProviderNOMS External Department UnsolicitedStart: 05-01-2024 End: 14-01-5944Fkndqqomv Result EncounterGeneric External Data ProviderNOMS External Department UnsolicitedStart: 04-30-2024 End: 43-71-5292Rfkcqczwf Result EncounterGeneric External Data ProviderNOMS External Department UnsolicitedStart: 04-30-2024 End: 41-13-5344Voeasttfq Result EncounterGeneric External Data ProviderNOMS External Department UnsolicitedStart: 04-23-2024 End: 92-43-1925Rmrrdbi encounter procedureCorey Diego DO Work Phone: [facility] Work Phone: Start: 04-23-2024 End: 00-15-7010Qhkcvdva preventive med est patient 40-64yrsCorey Diego DO Work Phone: [facility] OBComment on above:Well woman exam with routine gynecological exam; Breast cancer screening by mammogram; Postmenopausal stateStart: 04-23-2024 End: 18-01-4680Uxmtqb flowsheetCorey Diego DO Work Phone: [facility] BCP OBStart: 04-23-2024 End: 30-95-9958Wocsjx flowsheetCorey Diego DO Work Phone: [facility] BCP OBStart: 04-23-2024 End: 96-82-7197Ihqvbwkna Result EncounterCorey Diego DO Work Phone: [facility] External Department UnsolicitedStart: 12-03-2022 ambulatoryFacility:FT FM BellevueStart: 02-01-2022 End: 70-74-0199kaljhxsvdtOP JOMAR WHITEFacility:L9Mzffh: 01-25-2022 End: 05-09-4072fymqvayiuxBN JOMAR WHITEFacility:H1 Procedures DateProcedureProcedure DetailPerforming ClinicianStart: 45-34-8519Hlvrj foot complete minimum 3 viewsAnthony S Rusher DPM Work Phone: Start: 81-54-5939Ojoja foot complete minimum 3 views Jeancarlos S Rusher DPM Work Phone: Start: 48-69-5983XJ DEXA AXIAL SKELETONGeneric External Data ProviderStart: 16-19-2417CZ TOMOSYNTHESIS SCREENING BIGeneric External Data ProviderStart: 24-95-3163SrqrzfakcypAqnkl Diego DO Work Phone: Start: 53-74-7068WWC,APTIMA HPV,AGE GDLNCorey Diego DO Work Phone: Start: 09-80-3179UysveasnilfIwvu Daniella LAMB Work Phone: Plan of Treatment DateCare ActivityDetailAuthorStart: 56-65-6783Dhghkkjwb for malignant neoplasm of colonNOMS HealthcareStart: 06-16-2026 End: 54-78-1851Vcfeomz encounter nbbvelsyo19/09/2026 9:00 AM EST Procedure Visit YARA SANCHEZ [address] [place] [address] Bailey Patel PA [address] [place] [address] NOMZuleyka KAURGYNStart: 28-73-7879Tlbdr BMI ScreeningAdult BMI ScreeningProPromedica Flower Hospital SystemStart: 86-37-5572Nqbjsph ScreeningTobacco ScreeningProPromedica Flower Hospital SystemStart: 09-30-2025 End: 32-71-2032Beyhrou encounter dodliffdi44/23/2026 2:30 PM EST Office Visit NOMZuleyka PIERRE [address] [place] [address] Johnnie Browne MD [address] [place] [address] NOMZuleyka PIERRE FMStart: 07-19-2025 End: 34-21-8076Wtdzueq encounter /12/2025 8:45 AM EST Office Visit NOMZuleyka [place] [facility] [address] [place] [address] Jeancarlos Weber DPGraeme [address] [place] [address] YARA [place] PodiatryStart: 06-12-2025 End: 74-12-3101Cxhpxvk encounter fbplmqivi89/05/2025 10:00 AM EST Procedure Visit NOMZuleyka SANCHEZ [address] [place], [place] Bailey Patel PA [address] [place] [address] [place] [address] NOMZuleyka Trin[place] OBGYNStart: 06-07-2025 End: 93-07-6031Fjjckde encounter procedureNOMS [facility] PodiatryComment on above: ArrivedStart: 05-22-2025 End: 38-37-9660Wszhgbz encounter procedureNOMS FH PODIATRYStart: 05-08-2025 End: 31-27-7152Yozglbu encounter procedureNOMS FH PODIATRYComment on above: ArrivedStart: 05-01-2025 End: 03-49-2054Iblafhz encounter procedureNOMS BCP OBStart: 39-16-7496Uhuvkqsrs for malignant neoplasm of breastMammogramNOMS HealthcareStart: 04-25-2025 End: 36-36-3580Hdahwettv to same day surgery msdrib4804/25/2025 7:30 AM EDT - 04/25/2025 8:30 AM EDT Surgery [facility] [address] [place] [address] Jeancarlos Weber, DPM [address] [place], [place] [address] BUNIONECTOMY FOOT JULIANA [28726 (CPT )][facility] HospitalComment on above:BUNIONECTOMY FOOT JULIANA [84322 (CPT )]Start: 04-25-2025 End: 24-67-4462Jmfsuoxalv /18/2025 7:30 AM EDT Anesthesia Event [facility] Surgery [address] [place], [place] [address] Navid Orozco, DO [address] [place] [address] [facility] SurgeryStart: 04-25-2025 End: 87-34-6255Wgrua hallux valgus w/sesmdc w/dist metar osteotBUNIONECTOMY FOOT right hallux valgus 04/25/2025 7:30 AM EDTFREMONT SURGERYStart: 04-25-2025 End: 45-74-0117Snfbc hallux valgus w/sesmdc w/prox phlnx osteotOSTEOTOMY NHUNG FOOT right hallux valgus 04/25/2025 7:30 AM EDTFREMI-[facility] SURGERYStart: 04-25-2025 Subsequent hospital visit by qmklzpiip80/18/2025 7:30 AM EDT Hospital Encounter [facility] - Surgery [address] [place] [address] Jeancarlos Weber, DPM [address] [place] [address] [facility] - Surgery Start: 04-16-2025 End: 63-26-4945Xjvawrq encounter procedureNOMS FH PODIATRYComment on above: ArrivedStart: 11-52-7900CQCAR-19 Vaccine ( season)COVID-19 Vaccine ( season)N[facility] HealthcareStart: 43-88-2979Ibcebrgwi vaccinationNOMS HealthcareStart: 03-28-2025 End: 35-12-3674Nycnabk encounter procedureNOMS CWM FMComment on above:Arrived Start: 12-14-2024 End: 29-78-2401Vizepsu encounter gatfkhdjq18/09/2025 11:30 AM EDT Office Visit [facility] FM [address] [place] [address] Johnnie Browne MD [address] [place] [address] ArrivedNOMS CWM FMComment on above:ArrivedStart: 52-28-3506Ofbn Risk ScreeningFall Risk ScreeningFirelands Regional Medical Center SystemStart: 04-23-2024 End: 50-45-8749Xskmoam encounter hscwqujlv24/16/2024 3:00 PM EDT Office Visit [facility] BCP OB [address] [place] [address] Robert Cortez, DO [address] [place] [address] ArrivedINTER[facility] OBComment on above:ArrivedStart: 04-23-2024 End: 43-69-8868UVK Skeletal system Views for bone densityDEXA bone density Imaging Routine Postmenopausal state Expected: 04/23/2024 (Approximate), Expires:04/23/2025NOVT HealthcareComment on above:Expected: 04/23/2024 (Approximate), Expires: 04/23/2025Start: 04-23-2024 End: 40-92-1960EY Breast - bilateral ScreeningBilateral screening mammogram Imaging Routine Breast cancer screening by mammogram Expected: 04/23/2024, Expires: 06/23/2025[facility] Work Phone: comment on above:Expected: 04/23/2024, Expires: 06/23/2025Start: 50-89-5158Qlsmxrglg vaccinationInfluenza Vaccine (#1)[facility] HealthcareStart: 32-69-6737Typluxnxsldrxc of varicella zoster vaccineZoster (Shingles) Vaccine (1 of 2)[facility] SystemStart: 12-35-8289Twdmqfkkqgsu Vaccine: 65+ Years (1 of 1 - PCV)Pneumococcal Vaccine: 65+ Years (1 of 1 - PCV) [facility] HealthcareStart: 66-02-2065Kkpzqganc for malignant neoplasm of breast MammogramNOMS HealthcareStart: 55-11-1185Xipxvkqdp for malignant neoplasm of cervixNOMS HealthcareStart: 47-99-2744Jxwjxnaxf for malignant neoplasm of cervix Pap SmearNOMS HealthcareStart: 32-99-6674LLkW,Tdap and Td Vaccines (1 - Tdap) DTaP,Tdap and Td Vaccines (1 - Tdap)[facility] SystemStart: 11-11-1977 Adult BMI Follow Up PlanAdult BMI Follow Up PlanProPromedica Flower Hospital SystemStart: 19-03-1776Wzqvaahltd ScreeningDepression ScreeningProPromedica Flower Hospital SystemStart: 57-95-3080JGlY/Tdap/Td Vaccines (1 - Tdap)DTaP/Tdap/Td Vaccines (1 - Tdap)[facility] HealthcareStart: 88-36-2939SAI Vaccines (1 of 1 - Standard series)MMR Vaccines (1 of 1 - Standard series)[facility] HealthcareStart: 69-16-9076Daalelqkz for malignant neoplasm of colonNOVT HealthcareCHLAMYDIA TRACHOMATIS (GENITO/STI) CHLAMYDIA TRACHOMATIS (GENITO/STI) Lab Routine Vaginal itching Vaginal discharge Ordered: 06/12/2025[facility] HealthcareComment on above:Ordered: 06/12/2025Neisseria gonorrhoeae DNA [Presence] in Unspecified specimen by ALTHEA with probe detection Neisseria gonorrhea DNA probe, direct Lab Routine Vaginal itching Vaginal discharge Ordered: 06/12/2025[facility] HealthcareComment on above:Ordered: 06/12/2025 SURESWAB(R) ADVANCED VAGINITIS PLUS, TMASURESWAB(R) ADVANCED VAGINITIS PLUS, TMA Pathology and Cytology Routine Vaginal itching Vaginal discharge Ordered: 06/12/2025[facility] HealthcareComment on above:Ordered: 06/12/2025THIN PREP TIS PAP AND HR HPV DNATHIN PREP TIS PAP AND HR HPV DNA Pathology and Cytology Routine Well woman exam with routine gynecological exam Ordered: 04/23/2024[facility] HealthcareComment on above:Ordered: 04/23/2024THIN PREP TIS PAP AND HR HPV DNA THIN PREP TIS PAP AND HR HPV DNA Pathology and Cytology Routine Well woman exam with routine gynecological exam Ordered: 06/12/2025[facility] Healthcare Work Phone: comment on above:Ordered: 06/12/2025 Immunizations Immunization DateImmunizationNotesCare [id number] virus vaccine, unspecified formulation[address]10-01-2015influenza virus vaccine, unspecified formulationRobert Cortez DO Work Phone: [facility] Payers DatePayer CategoryPayerPolicy [id number]-[id number] 38-34-1658[facility]htA[facility] - PPO[facility]HEM [id number] BCBS [id number] 2021-Present [phone] [address] [place] [address] [id number] 2..1.493209.3.57[id number] 2..1.901650.3.57[id number] 2.0.1.102595.3.57[id number] 2.0.1.356079.3.57[id number] 2.0.1.338741.3.57[id number] 2.0.1.271265.3.57[id number] 2.0.1.531312.3.57[id number] 2.16.840.1.243746.3.57[id number] 2.16.840.1.593914.3.57[id number] 2.16.840.1.915494.3.57[id number] 2.16.840.1.297573.3.57[id number] 2.16.840.1.365254.3.57[id number] 2.16.840.1.411676.3.579.[id number] 2.16.840.1.867393.3.57[id number] 2.16.840.1.103993.3.57[id number] 2.16.840.1.256775.3.579.2.76[id number] Social History DateTypeDetailFacilityStart: 04-07-2023 End: 21-29-1634Aqrrviq smoking status NHISNever smoked tobaccoNOMS Healthcare Start: 04-07-2023 End: 86-55-9967Npwtdpp use and exposureSmokeless tobacco non-userNOMS Healthcare Start: 04-23-2024 End: 12-84-4210Mhoryydwm beverage intakeEx-drinker (finding)[facility] Start: 04-23-2024 End: 80-42-7629Hergzjf of Social functionNOMS HealthcareStart: 04-23-2024 End: 08-53-4741Vylyxie use panelNOMS HealthcareStart: 00-33-2709Vzdbzcz Comment Occasional alcohol useNOMS HealthcareStart: 99-07-5430Ahd assigned at birthNot on fileNOOzarks Community HospitalTobacco smoking status NHISUnknown if ever smokedParkview Health Ctr Work Phone: Start: 03-88-6281FrqTrampb (finding)Parkview Health CenterStart: 38-80-5972Xuo Assigned At BirthFeKettering Health Miamisburg CenterStart: 63-20-8440BgrzxuwarZtezomcZRLZ Healthcare Goals DatePatient GoalDesired Activity/StatePersonal health goal Clinical Notes 04-23-2024 to 06-12-2025 Note Date & [id number] History of Present illness Narrative* Marisol Castro FORENSIC PHOTOGRAPHER - 06/12/2025 10:00 AM EST Reason for Appointment: Patient ID: Diane Stewart is a 64 [...] Left GANGLION CYST EXCISION Right wrist HYSTERECTOMY DC ARTHROSCOPY KNEE DIAGNOSTIC W/WO SYNOVIAL BX SPX [...] nursing note reviewed. Exam conducted with a purchasing engineer present. Vitals: Estimated body mass index is 36.9 kg/m as calculated from the following: Height as [...] behalf of: JONNY Martinez documented in this encounterReynolds County General Memorial HospitalJmjcihexwh82-66-6533 History of Present illness Narrative* Jeancarlos Weber DPM - 06/07/2025 9:00 AM EDT Images from the original note were not included. Subjective Patient ID: Diane Stewart is a 64 y.o. female who presents for Post Op #3 (Diane Stewart 64yo Established patient presents for Post Op#3. [...] Left GANGLION CYST EXCISION Right wrist HYSTERECTOMY DC ARTHROSCOPY KNEE DIAGNOSTIC W/WO SYNOVIAL BX SPX [...] understanding. Jeancarlos Weber DPM documented in this encounterReynolds County General Memorial HospitalIqrvvzsevy52-38-6690 History of Present illness Narrative* Jeancarlos Weber DPM - 05/22/2025 10:45 AM EDT Images from the original note were not included. Subjective Patient ID: Diane Stewart is a 64 y.o. female who presents for Post Op#2 (Diane Stewart 64yo Established patient presents for Post Op#2.Motrin as needed. DOS 04/25/2025.). HPI Date of surgery 04/25/2025: Juliana bunionectomy, right foot Patient presents to clinic postoperatively. Continuing to do well. She does note some throbbing pains when she is on her foot for a long time. Review of Systems Constitutional: Positive for activity [...] Left GANGLION CYST EXCISION Right wrist HYSTERECTOMY DC ARTHROSCOPY KNEE DIAGNOSTIC W/WO SYNOVIAL BX SPX [...] normal. Behavior: Behavior normal. Assessment/Plan ICD-10-CM 1. S/P foot surgery Z98.890 2. Right foot pain M79.671 Patient examined and evaluated. She will continue weight-bearing with the fracture boot in place. Only necessary activities of daily living for weight- bearing. Elevate foot above heart level as much as possible. She will be off of work for an additional 1 month. I will follow up with her in 2 weekswith repeat radiographs of the right foot. If she is doing well at that point we will initiate transitioning out of the fracture boot. This note was created with the assistance of a speech recognition program. While intending to generate a timely document that accurately reflects the content of the visit, no guarantee can be provided that every grammatical or spelling mistake has been or will be identified or corrected. Thank you for your understanding. Jeancarlos Weber DPM documented in this encounterReynolds County General Memorial HospitalVorxivscnp69-91-9040 History of Present illness Narrative* Jeancarlos Weber DPM - 05/08/2025 10:45 AM EDT Images from the original note [...] Left GANGLION CYST EXCISION Right wrist HYSTERECTOMY DC ARTHROSCOPY KNEE DIAGNOSTIC W/WO SYNOVIAL BX SPX [...] viewsAre nonweightbearing. Orthopedic implant across the 1st metatarsalosteotomy intact without lucency or back out. Hallux [...] continue weight-bearing in a fracture boot. No w eight-bearing outside of the fracture boot. Weight-bearing is [...] understanding. Jeancarlos Weber DPM documented in this encounterReynolds County General Memorial HospitalGqknmemcbu85-04-9285 History of Present illness Narrative* Jeancarlos Weber DPM - 04/16/2025 2:15 PM EDT Images from the original note were [...] over 10 years ago and responded very wellto surgical intervention. Unfortunately she is continuing to have pain on the right foot with significant bunion deformity which has caused increasing disability over the last few years. Symptoms areworse with certain shoe gear. She has failed extensive conservative care measures at this point andafter discussing risks and benefits would like to [...] Left GANGLION CYST EXCISION Right wrist HYSTERECTOMY DC ARTHROSCOPY KNEE DIAGNOSTIC W/WO SYNOVIAL BX SPX [...] before she leaves the operative area. At thetime of dispensing it was suitable and not substandard. Goals of therapy include prevent further injury, stabilization, reduction of stress and pressure to the operative area. Anticipated time of useis at least 8 weeks. Patient was instructed in the application and removal of this device. It fit we ll and she demonstrated the ability to don [...] understanding. Jeancarlos Weber DPM documented in this encounterReynolds County General Memorial HospitalNdgeyfhssk90-39-0667 Instructions* Patient Instructions* Diana Vaughn RN - 04/09/2025 9:00 AM EDT Preoperative Education Checklist- General Surgery date: 04/25/25 Surgery time: 730a Arrival time: 610a 1. Bring a photo ID and your insurance card with you the day of surgery. You will check in at the main lobby of the [facility]- registration desk is straight ahead as soon as you walk in. Tell them you are here for surgery. 2. If you have a Living Will/Durable Power of Raisin Separator Operator for Health Care that is not on [...] after you have bathed. 5. NO nail indonesian/acrylic on at least one finger. If you are having a hand, wrist or foot surgery then all nail indonesian and artificial/acrylic nails must be removed from [...] least 8 hours and marijuana for 24 hoursprior to arrival for your surgery. 16. Notify your surgeon if you develop any illness before your surgery. 17. If you are staying overnight, please DO NOT BRING your home medications with you. 18. If you have any questions prior to surgery, please call the Preadmission Testing office at [phone], Mon.-Fri. 7 a.m.-3 p.m. Leave a voicemail if needed. Pre-Surgery Instructions: Medication Instructions atorvastatin (LIPITOR) 10 mg tablet Continue as prescribed, DO NOT take morning of procedure bisoprolol-hydroCHLOROthiazide (ZIAC) 10-6.25 mg per tablet Continue as prescribed, take morning ofprocedure levothyroxine (SYNTHROID, LEVOTHROID) 125 MCG tablet Continue [...] after surgery- do not stop unless directed pete your physician. You may also be given [...] is normal. Call your doctor if you noticeany of the following: -Increased redness or hardening [...] water and pat the area dry with aclean towel. -No re-using wash cloths or towels; get a fresh one to clean your incision. -Do not soak in the bathtub, go swimming or use a hot tub (Jacuzzi), or perform activities where your incision is [...] appointment with your doctor. documented in this encounterBlanchard Valley [facility]08[facility] Telephone encounter Note* Telephone Encounter - Johnnie Browne MD - 04/01/2025 3:25 PM EDT Pathology showed benign seborrheic keratosis. [facility] HospitalWcbdmxzhtb12-51-0573 Miscellaneous Notes* Telephone Encounter - Johnnie Browne MD - 04/01/2025 3:25 PM EDT Pathology showed benign seborrheic keratosis. documented in this encounterReynolds County General Memorial HospitalLynmxepyyy23-37-6151 History of Present illness Narrative* Johnnie Browne MD - 03/28/2025 1:52 PM EDTAssociated Problem(s): Neoplasm of uncertain behavior of skin [...] bandage. Will notify of pathology when available * Johnnie Browne MD - 03/28/2025 1:52 PM EDTAssociated Problem(s): Essential hypertension BP elevated today but typically controlled and monitor PRN. * Johnnie Browne MD - 03/28/2025 1:51 PM EDTAssociated Problem(s): Preop examination Able to proceed with upcoming surgery at low risk for complications. History of HTN but typically controlled with medication. No history of DM or CAD. Not having chest pain or SOB. Recommend routine PAT. * Johnnie Browne MD - 03/28/2025 1:00 PM EDT Images from the original note were [...] right mid back for months. Increased in sizeand dark color. Irritated by bra and wants [...] SOB. Recommend routine PAT. documented in this encounterReynolds County General Memorial HospitalAvdnabbroq02-56-5337 Telephone encounter Note* Telephone Encounter - Nisa Ramirez - 02/26/2025 4:07 PM EDT Patient called to let us know she will have an appt with Dr. Browne's office for her clearance 03/28/25. [facility] HospitalFqnvjxwwkk67-38-3115 Miscellaneous Notes* Telephone Encounter - Nisa Ramirez - 02/26/2025 4:07 PM EDT Patient called to let us know she will have an appt with Dr. Browne's office for her clearance 03/28/25. documented in this encounterReynolds County General Memorial HospitalDymqsclrme26-52-2102 History of Present illness Narrative* Johnnie Browne MD - 12/14/2024 3:01 PM EDTAssociated Problem(s): Class 2 severe obesity due to excess calories with serious comorbidity and chad dy mass index (BMI) of 37.0 to 37.9 in adult ([facility]) Weight loss indicated * Johnnie Browne MD - 12/14/2024 2:59 PM EDTAssociated Problem(s): Neoplasm of uncertain behavior of skin Lesion likely SK but irritated and changing. Return for shave biopsy. * Johnnie Browne MD - 12/14/2024 2:59 PM EDTAssociated Problem(s): Adult hypothyroidism (CMS/HCC) Labs show elevated TSH and increase synthroid. * Johnnie Browne MD - 12/14/2024 2:59 PM EDTAssociated Problem(s): Annual physical exam Reviewed labs. Discussed proper diet and regular aerobic exercise. Need aerobic exercise 5-6 days aweek for 30 minutes at a time. Smaller portions and limit total calories. Colonoscopy every 10 years. Tetanus every 10 years. Advised not to smoke. * Johnnie Browne MD - 12/14/2024 11:30 AM EDT Images from the original note [...] Return for shave biopsy. documented in this encounterReynolds County General Memorial HospitalNhjnvpmbka01-88-6867 History of Present illness Narrative* Susana Corona LPN - 04/23/2024 3:00 PM EDT Reason for Appointment: Patient ID: Diane Stewart is a 63 y.o. female who presents for [facility] Visit Patient presents today for Annual [...] Left GANGLION CYST EXCISION Right wrist HYSTERECTOMY DC ARTHROSCOPY KNEE DIAGNOSTIC W/WO SYNOVIAL BX SPX [...] nursing note reviewed. Exam conducted with a purchasing engineer present. Vitals: There is no height or [...] Susana Corona LPN on behalf of: Robert Coretz DO documented in this encounterNOVT HealthcareEvaluation note* Diagnosis Well woman exam with routine gynecological exam Routine gynecological examination Breast cancer screening by mammogram Postmenopausal state Asymptomatic postmenopausal status (age-related) (natural) documented in this encounter [facility] HealthcareEvaluation note* Diagnosis Annual physical exam- Primary Routine general medical examination at a health care facility Essential hypertension (CMS/HCC) Unspecified essential hypertension Adult hypothyroidism ([facility]) Unspecified hypothyroidism Neoplasm of uncertain behavior of skin Class 2 severe obesity due to excess calories with serious comorbidity and body mass index (BMI) of37.0 to 37.9 in adult ([facility]) documented in this encounter [facility] HealthcareEvaluation note* Diagnosis Annual physical exam- Primary Routine general medical examination at a health care facility Essential hypertension Unspecified essential hypertension Adult hypothyroidism Unspecified hypothyroidism Neoplasm of uncertain behavior of skin Class 2 severe obesity due to excess calories with serious comorbidity and body mass index (BMI) of37.0 to 37.9 in adult ([facility]) Preop examination- Primary Unspecified pre-operative examination Essential hypertension Unspecified essential hypertension Neoplasm of uncertain behavior of skin documented in this encounter [facility] HealthcareEvaluation noteNo assessment information availableParkview Health Ctr Work Phone: Evaluation note* Diagnosis Preop examination- Primary Unspecified pre-operative examination Hypertension, unspecified type Preop examination Unspecified pre-operative examination documented [facility] encounter [facility] SystemEvaluation [facility]* Diagnosis Annual physical exam- Primary Routine general medical examination at a health care facility Essential hypertension Unspecified essential hypertension Adult hypothyroidism Unspecified hypothyroidism Neoplasm of uncertain behavior of skin Class 2 severe obesity due to excess calories with serious comorbidity and body mass index (BMI) of37.0 to 37.9 in adult ([facility]) Preop examination- Primary Unspecified pre-operative examination Essential hypertension Unspecified essential hypertension Neoplasm of uncertain behavior of skin Hallux valgus of right foot- Primary Right foot pain Pain in soft tissues of limb S/P foot surgery Other postprocedural status Instability of right ankle joint Difficulty walking Difficulty in walking documented in this encounter [facility] HealthcareEvaluation note* Diagnosis Annual physical exam- Primary Routine general medical examination at a health care facility Essential hypertension Unspecified essential hypertension Adult hypothyroidism Unspecified hypothyroidism Neoplasm of uncertain behavior of skin Class 2 severe obesity due to excess calories with serious comorbidity and body mass index (BMI) of37.0 to 37.9 in adult Preop examination- Primary Unspecified pre-operative examination Essential hypertension Unspecified essential hypertension Neoplasm of uncertain behavior of skin S/P foot surgery- Primary Other postprocedural status Right foot pain Pain in soft tissues of limb documented in this encounter [facility] HealthcareEvaluation note* Diagnosis Annual physical exam- Primary Routine general medical examination at a health care facility Essential hypertension Unspecified essential hypertension Adult hypothyroidism Unspecified hypothyroidism Neoplasm of uncertain behavior of skin Class 2 severe obesity due to excess calories with serious comorbidity and body mass index (BMI) of37.0 to 37.9 in adult Preop examination- Primary Unspecified pre-operative examination Essential hypertension Unspecified essential hypertension Neoplasm of uncertain behavior of skin S/P foot surgery- Primary Other postprocedural status Right foot pain Pain in soft tissues of limb documented in this encounter [facility] HealthcareEvaluation note* Diagnosis Annual physical exam- Primary Routine general medical examination at a health care facility Essential hypertension Unspecified essential hypertension Adult hypothyroidism Unspecified hypothyroidism Neoplasm of uncertain behavior of skin Class 2 severe obesity due to excess calories with serious comorbidity and body mass index (BMI) of37.0 to 37.9 in adult Preop examination- Primary Unspecified pre-operative examination Essential hypertension Unspecified essential hypertension Neoplasm of uncertain behavior of skin S/P foot surgery- Primary Other postprocedural status Right foot pain Pain in soft tissues of limb documented in this encounter [facility] HealthcareEvaluation note* Diagnosis Annual physical exam- Primary Routine general medical examination at a health care facility Essential hypertension Unspecified essential hypertension Adult hypothyroidism Unspecified hypothyroidism Neoplasm of uncertain behavior of skin Class 2 severe obesity due to excess calories with serious comorbidity and body mass index (BMI) of37.0 to 37.9 in adult Preop examination- Primary Unspecified pre-operative examination Essential hypertension Unspecified essential hypertension Neoplasm of uncertain behavior of skin Yeast infection- Primary Well woman exam with routine gynecological exam Routine gynecological examination Encounter for screening mammogram for malignant neoplasm of breast Postmenopausal state Asymptomatic postmenopausal status (age-related) (natural) Vaginal itching Pruritus of genital organs Vaginal discharge Leukorrhea, not specified as infective documented in this encounter [facility] HealthcareReason for referral (narrative)No reason for referral information availableParkview Health Ctr Work Phone: Summary Purpose Family History [...] and content) DATE CREATED AUTHOR 02/05/2022 [facility] DATE CREATED AUTHOR AUTHOR'S ORGANIZ ATION 12/09/2022 [facility] DATE CREATED AUTHOR AUTHOR'S ORGANIZ ATION 04/02/2025 [facility] DATE CREATED AUTHOR AUTHOR'S ORGANIZ ATION 04/26/2025 [facility] DATE CREATED AUTHOR AUTHOR'S ORGANIZ ATION 06/08/2025 [facility] EPIC Reason for Visit (unrecogniz ed section and content) ReasonCommentsWell Women VisitReasonCommentsAnnual ExamWellnessMole on back ReasonOnset DateCommentsAdvice Only02/26/2025learanceReasonCommentsFollow-up Shave biopsy, Surgical clearanceReasonCommentsConsent Or InstructionsEstablished patient presents today for consent and instructions for upcoming surgery.Reason CommentsPost Op#1Lyen Hammer 64yo Established patient presents for Post Op#1. DOS 04/25/2025.ReasonCommentsPost Op#2Lyen Hammer 64yo Established patient presents for Post Op#2.Motrin as needed. DOS 04/25/2025.ReasonCommentsPost Op #3 Diane Hammer 64yo Established patient presents for Post Op#3. Motrin as needed. DOS 04/25/2025. Care Teams (unrecognized sec tion and content) Team MemberRelationshipSpecialtyStart DateEnd Date Johnnie Browne MD [address] [place] [address] [facility] - [facility]04/19/23Team MemberRelationshipSpecialtyStart DateEnd Date Johnnie Browne MD [address] [place] [address] PCP - Generalmi Medicine04/19/23Team MemberRelationshipSpecialtyStart DateEnd Date Johnnie Browne MD [address] [place] [address] PCP - GeneralFamily Medicine04/19/23Team MemberRelationshipSpecialtyStart DateEnd Date Johnnie Browne MD [address] [place] [address] PCP - GeneralFamily Medicine04/19/23Team MemberRelationshipSpecialtyStart DateEnd Date Johnnie Browne MD [address] [place] [address] PCP - Generalmily Medicine04/19/23Team MemberRelationshipSpecialtyStart DateEnd Date Johnnie Browne MD [address] [place] [address] [facility]04/19/23Team MemberRelationshipSpecialtyStart DateEnd Date Johnnie Browne MD [address] [place] [address] PCP - [facility] Medicine04/19/23 Johnnie Browne MD [address] [place] [address] PCP - [employer]02/05/25Team MemberRelationshipSpecialtyStart DateEnd Date Johnnie Browne MD [address] [place] [address] PCP - [facility] Medicine04/19/23 Johnnie Browne MD [address] [place] [address] PCP - [employer]02/05/25 Team Status: Inactive Member Role Status Dates Johnnie Browne MD Attending Provider Active Star t: March 28, 2025 End: March 28, 2025Team MemberRelationshipSpecialtyStart DateEnd Date Johnnie Browne MD [address] [place] [address] PCP - [facility] Medicine04/19/23 Johnnie Browne MD [address] [place] [address] PCP - [employer]02/05/25Team MemberRelationshipSpecialtyStart DateEnd Date Johnnie Browne MD [address] [place] [address] PCP - GeneralFamily Medicine04/19/23 Johnnie Browne MD [address] [place] [address] PCP - [employer]02/05/25Team MemberRelationshipSpecialtyStart DateEnd Date Johnnie Browne MD [address] [place] [address] PCP - GeneralFamily Medicine04/19/23 Johnnie Browne MD [address] [place] [address] PCP - [employer]02/05/25Team MemberRelationshipSpecialtyStart DateEnd Date Johnnie Browne MD [address] [place] [address] PCP - GeneralFamily Medicine04/19/23 Johnnie Browne MD [address] [place] [address] PCP - [employer]02/05/25Team MemberRelationshipSpecialtyStart DateEnd Date Johnnie Browne MD [address] [place] [address] PCP - GeneralFamily Medicine04/19/23 Johnnie Browne MD [address] [place] [address] PCP - [employer]02/05/25Team MemberRelationshipSpecialtyStart DateEnd Date Johnnie Browne MD [address] [place] [address] PCP - GeneralFamily Medicine04/19/23 Johnnie Browne MD [address] [place] [address] PCP - [employer]02/05/25Team MemberRelationshipSpecialtyStart DateEnd Date Johnnie Browne MD [address] [place] [address] PCP - GeneralFamily Medicine04/19/23 Johnnie Browne MD [address] [place] [address] PCP - [employer]02/05/25Team MemberRelationshipSpecialtyStart DateEnd Date Johnnie Browne MD [address] [place] [address] PCP - GeneralFamily Medicine04/19/23 Johnnie Browne MD [address] [place] [address] PCP - [employer]02/05/25Team MemberRelationshipSpecialtyStart DateEnd Date Johnnie Browne MD [address] [place] [id number] PCP - [facility]04/19/23 Johnnie Browne MD [address] [place] [address] [facility]02/05/25Team MemberRelationshipSpecialtyStart DateEnd Date Johnnie Browne MD [address] [place] [address] [facility]04/19/23 Johnnie Browne MD [address] [place] [address] [facility]02/05/25Team MemberRelationshipSpecialtyStart DateEnd Date Johnnie Browne MD [address] [place] [address] [facility]04/19/23 Johnnie Browne MD [address] [place] [address] PCP [facility]02/05/25 Goals (unrecognized section and content) Goals may [...] BE BASED ON THE PRIMARY CLINICAL RECORDS. [facility]. provides no warranty or guarantee of the accuracy or completeness of information in this document.
== END 2025-06-12 15:12 | disposition home or self-care (01) ==
LOC: LAB 15:11
PROVIDERS: PCP Family Medicine; Visit Provider Physician Assistant
DX: Z01.419 Encounter for gynecological examination (general) (routine) without abnormal findings (principal)
CPT/HCPCS: 87624; 88175